=== PATIENT | male | born 1960 | race Caucasian/White ===

== ENCOUNTER 2023-11-03 16:49 | Inpatient (IN) | payer BC, SELFPAY ==
[2023-11-03 12:04] VITALS: BP 131/81
[2023-11-03 12:42] LABS: % Basophils 0.3 % (0-2); % Immature Granulocytes 0.9 % (0-0.5); % Lymphocytes 22.2 % (20.5-51.1); % Monocytes 9.3 % (1.7-9.3); % Neutrophils 63.3 % (42.2-75.2); Absolute Eosinophils 0.4 10^3/uL (0-0.7); Absolute Immature Granulocytes 0.1 10^3/uL (0-0.05); Absolute Lymphocytes 2.1 10^3/uL (1.2-3.4); Absolute Monocytes 0.9 10^3/uL (0.1-0.6); Absolute Neutrophils 6.1 10^3/uL (1.4-6.5); Hematocrit 35.2 % (39.0-52.0); Hemoglobin 11.9 g/dL (13.0-18.0); Mean Corp Hgb Conc. 33.8 g/dL (33.0-37.0); Mean Corpuscular Hgb 28.4 pg (27.0-31.0); Mean Platelet Volume 9.3 fL (7.4-10.4); Nucleated Red Blood Cells % 0 % (-); Platelet Count 404 10^3/uL (130-400); Red Blood Cell Count 4.19 10^6/uL (4.70-6.10); Red Cell Dist. Width 13.2 % (11.5-14.5); White Blood Cell Count 9.6 10^3/uL (4.8-10.8)
[2023-11-03 12:49] LABS: ALT (SGPT) 41 U/L (0-50); AST (SGOT) 35 U/L (17-59); Albumin 3.4 g/dl (3.5-5.0); Alkaline Phosphatase 135 U/L (38-126); Blood Urea Nitrogen 14 mg/dl (9-20); Calcium 8.8 mg/dl (8.4-10.2); Carbon Dioxide 27 mmol/L (22-30); Chloride 98 mmol/L (98-107); Glucose 260 mg/dl (70-99); Potassium 4.2 mmol/L (3.5-5.1); Sodium 134 mmol/L (135-145); Total Bilirubin 0.5 mg/dl (0.2-1.3); Total Protein 6.7 g/dl (6.3-8.2); eGFR > 60.00
--- NOTE | 2023-11-03 14:04 | ED.SKININJ ---
HPI-Injury
General
Chief Complaint: Skin Problem
Source: patient
Exam Limitations: none
Time Seen by Provider: 11/03/23 13:29
Travel History
Have you had any contact with someone who has COVID-19?: No
Do you have any symptoms of coronavirus? Fever > 100 degrees, chills, cough, shortness of breath, sore throat, loss of taste or smell, muscle aches, or headache?: No
History of Present Illness-Injury
Initial Injury comments:
63-year-old male ylo-cgekcho-rxpxjxtzw diabetic presents with worsening wound and potential infection to the right foot. It started as a potential blister and is since opened. He now notes a foul odor with redness spreading into his ellsworth. He
denies measurable fever. He has been taking cinnamon tablets to help lower his blood sugar. He does not take any other medications.
Phy Exam
Physical Exam
Physical Exam:
General: Well-appearing male no acute respiratory distress
HEENT: Normocephalic atraumatic
Heart: Regular rate and rhythm no murmurs
Lungs: CTA bilaterally
Skin: 4 cm diameter ulcer dorsal lateral aspect of right foot proximal to the MTP joints. This is surrounded by erythema. There is necrotic tissue. A wound culture probe goes in about 1.5 to 2 cm. This is foul in odor. There is a ulcer noted on
the plantar surface of laterally that measures about 3 cm in diameter. Erythema spreads to the anterior ellsworth.
Course
Orders/Labs/Results
Orders:
Orders
11/03/23 12:13
Complete Blood Count/With Diff Urgent
Comprehensive Metabolic Panel Urgent
11/03/23 13:40
CR Foot - Right Min 3 Views Urgent
Comment:
Reason For Exam: infection
11/03/23 13:45
Blood Culture Q30M
NAYELI Source: Blood/Venous
Specimen Description:
Wound Culture [Wound/Abscess/Other Culture] Urgent
NAYELI Source: Foot
Specimen Description: Right
Date Specimen was Collected: 11/03/23
Time Specimen was Collected: 14:30
11/03/23 14:15
Blood Culture Q30M
NAYELI Source: Blood/Venous
Specimen Description:
11/03/23 14:36
Lactic Acid Q4H
Comment: CANCEL 2nd LACTIC ACID IF 1st LACTIC ACID IS LESS THAN 2
11/03/23 14:52
Vancomycin [Vancocin] 1,500 mg 0.9% Sodium Chloride [Nss] 20 ml 0.9% Sodium Chloride 250 ml [Nss] 250 ml IV NOW
11/03/23 17:45
Lactic Acid Q4H
Comment: CANCEL 2nd LACTIC ACID IF 1st LACTIC ACID IS LESS THAN 2
Abnormal Lab Results
11/03/23
12:13
RBC 4.19 L 10^6/uL
(4.70-6.10)
Hgb 11.9 L g/dL
(13.0-18.0)
Hct 35.2 L %
(39.0-52.0)
Plt Count 404 H 10^3/uL
(130-400)
Abs Immat Gran (auto) 0.1 H 10^3/uL
(0-0.05)
Absolute Monos (auto) 0.9 H 10^3/uL
(0.1-0.6)
Immature Gran % 0.9 H %
(0-0.5)
Sodium 134 L mmol/L
(135-145)
Creatinine 0.5 L mg/dL
(0.7-1.3)
Glucose 260 H mg/dl
(70-99)
Alkaline Phosphatase 135 H U/L
(38-126)
Albumin 3.4 L g/dl
(3.5-5.0)
11/03/23 12:13
11/03/23 12:13
Vital Signs
Initial and Last Documented VS:
Initial Vital Signs
Temp Pulse Resp BP Pulse Ox
99.4 F 85 18 131/81 98
11/03/23 12:04 11/03/23 12:04 11/03/23 12:04 11/03/23 12:04 11/03/23 12:04
Last Documented Vital Signs
Temp Pulse Resp BP Pulse Ox
99.4 F 85 18 131/81 98
11/03/23 12:04 11/03/23 12:04 11/03/23 12:04 11/03/23 12:04 11/03/23 12:04
MDM/Problems Addressed
Differential Diagnosis Includes:
Diabetic foot ulcers with surrounding cellulitis. Question possible osteomyelitis. Lab work through triage which was reviewed demonstrates a normal white blood cell count. Will have blood cultures pending. Wound culture pending. Will order
x-ray. Start vancomycin. Patient will require admission to hospital
*Critical Care Note
Total Time (30-74mins, 75-104mins- exclusive of procedures): Not Applicable
Update Note
Update Note:
X-ray findings concerning for osteomyelitis of the distal fifth metatarsal. Vancomycin ordered wound cultures are pending. Will admit to hospital for further evaluation.
ED Attending Note
-
Portions of this chart may have been created with voice recognition software.� Occasional wrong word or��sound alike� substitutions may have occurred due to the inherent limitations of voice recognition software.
Discharge Plan
Departure
Patient Disposition: Admit
Date of Disposition: 11/03/23
Time of Disposition: 15:09
Admit to: Telemetry
Presentation/result/management discussed w/ accepting MD/DO: Hospitalist
Discharge Problem:
Cellulitis, Osteomyelitis
Referrals:
NONE,* [Family Provider] -
Interventions
Interventions:
*Risk Screen - Suicide Last Done: 11/03/23 12:05
*General Assessment Last Done: 11/03/23 12:05
*Neglect/Abuse Screening Last Done: 11/03/23 12:05
ED- Fall Risk Assessment Last Done: 11/03/23 14:44
*ED COVID-19 Vaccine History Last Done: 11/03/23 14:45
ED-Skin Assessment Last Done: 11/03/23 14:44
[2023-11-03 14:50] VITALS: BMI 31.4
[2023-11-03] MEDS: VANCOCIN 300 MG IV (15:09)
[2023-11-03] MEDS: VANCOCIN 300 ML IV (15:09)
[2023-11-03 15:12] VITALS: BP 167/96
[2023-11-03 15:15] LABS: Lactic Acid 0.8 mmol/L (0.7-2.0)
--- NOTE | 2023-11-03 16:32 | HPS.HSE ---
Addendum entered and electronically signed by Drea Welch MD 11/03/23 22:20:
Ordered MRI right foot as per podiatry.
Original Note:
Family Physician
-
Family Physician: * NONE
Chief Complaint
-
infected right foot wound
History of Present Illness
63-year-old male with past medical history of diabetes presenting with worsening wound infection of the right foot. It started as a blister a few days ago and has since opened up with now foul odor and redness spreading onto his ellsworth. He denies
any fevers or chills. He has been taking cinnamon tablets to help lower his blood sugar. He denies any history of vascular problems
He does drink alcohol on the weekends. He smokes less than a half a pack of cigarettes a day. He does use marijuana sometimes.
Medical History
Past Medical History
Past Medical History: Reports Other (diabetes)
Past Surgical History: Reports None
Social History
Tobacco: Smoker
Alcohol: Occasional
Drug: Marijuana
Family History
Family History: Not pertinent
Allergies / Home Medications
Allergies reflects when Allergies were last updated in [facility].
Home Medications with original date entered in [facility]
Allergy/Medication List:
Allergies
Allergy/AdvReac Type Severity Reaction Status Date / Time
No Known Allergies Allergy Unverified 11/03/23 12:05
Home Medications
Clear Eyes 2 drp BOTH EYES BIDPRN PRN dry eyes 11/03/23
Joint Supplement 1 tab PO HS 11/03/23
Megared Supplement 1 cap PO HS 11/03/23
aspirin 500 mg tablet 1,000 mg PO HSPRN PRN severe pain 11/03/23
aspirin 500 mg tablet 500 mg PO HS 11/03/23
zbwkdbo-oxtgouwap-kxxd 3 tab PO HS 11/03/23
therapeutic multivitamin 1 tab PO HS 11/03/23
zinc 1 tab PO HS 11/03/23
Review of Systems
-
History Source: Patient
A 12 point ROS was completed and negative except as noted: Yes
Constitutional: Reports No Symptoms
EENT: Reports No Symptoms
Respiratory: Reports No Symptoms
Cardiac: Reports No Symptoms
Abdomen/GI: Reports No Symptoms
: Reports No Symptoms
Musculoskeletal: Reports No Symptoms
Skin: Reports See HPI
Neurological: Reports No Symptoms
Endocrine: Reports No Symptoms
Hematologic/Lymphatic: Reports No Symptoms
Psych: Reports No Symptoms
Physical Exam
Vital Signs
Vital Signs
Temp Pulse Resp BP Pulse Ox
99.4 F 74 16 167/96 98
11/03/23 12:04 11/03/23 15:12 11/03/23 15:12 11/03/23 15:12 11/03/23 15:12
Physical Exam
General: Well Developed, Well Nourished and No Apparent Distress
HEENT: NormoCephalic, Moist mucous membranes and Atraumatic
Respiratory: Clear
Cardiac: S1/S2 and Regular Rhythm; No Murmur or Rub
GI: Soft, Non Tender, Non Distended and Normal Bowel Sounds; No Organomegaly
Rectal: Deferred by Provider
Musculoskeletal: No Clubbing, No Cyanosis and No Edema
Skin: Other (right foot wound with surrounding erythema ); No Rash
Neuro: Nonfocal/grossly intact
Laboratory Results
-
11/03/23 12:13
11/03/23 12:13
Laboratory Results
Lactic Acid 0.8 mmol/L (0.7-2.0) 11/03/23 14:36
Total Bilirubin 0.5 mg/dl (0.2-1.3) 11/03/23 12:13
AST 35 U/L (17-59) 11/03/23 12:13
ALT 41 U/L (0-50) 11/03/23 12:13
Alkaline Phosphatase 135 U/L (38-126) H 11/03/23 12:13
Data Reviewed
-
Lab Data: Labs Reviewed by me
Old Records: Reviewed
Impression/Plan
-
IMPRESSION:
PLAN:
# Diabetic foot infection with ulceration over the lateral/plantar aspect of head of fifth metatarsal with underlying osteomyelitis
-Check blood cultures
-Check wound culture
-Vancomycin/Zosyn
-Podiatry consulted
-Infectious disease consult
-Check arterial US/ JORGITO
# Likely untreated diabetes
-Check A1c
-Insulin sliding scale
Diabetic neuropathy
Presumably chronic anemia
-Hemoglobin 11.9, no baseline
Active smoker
-Nicotine patch started
Marijuana use
Full code
DVT prophylaxis�heparin
Diabetic diet
[2023-11-03 17:35] VITALS: BP 168/90
--- NOTE | 2023-11-03 19:45 | PHA.VAN.IN ---
Assessment
- Assessment
Renal Function: Unknown baseline
Concomitant Antimicrobials: ZOSYN
- Previous Dosing Experience
Previous Regimen: NONE
AUC Dosing Plan
- Empiric Dosing
Initial / Loading Dose: 2GM
Maintenance Regimen: 1250MG IV Q12H
Estimated AUC (mcg*h/mL): 498
Estimated Peak (mcg*h/mL): 31.4
Estimated Trough (mcg/ml): 12.6
Estimated Half Life (H): 7.9
Pharmacokinetics Vancomycin I
- -
Patient Age: 63
Patient Sex: Male
Vancomycin Day #: 1
Indication: Bone And Joint (OM; DIABETIC FOOT INFECTION)
Requesting Provider: EMILI
Height / Weight:
Height 5 ft 11 in
Actual Weight 102.058 kg
Pertinent Past Medical History: DM, UNTREATED
- Vital Signs / Lab Results
Temp Pulse Resp BP Pulse Ox
99.4 F 76 16 168/90 97
11/03/23 12:04 11/03/23 17:35 11/03/23 17:35 11/03/23 17:35 11/03/23 17:35
Lab Results - Hematology
11/03/23
12:13
WBC 9.6
Lab Results - Chemistry
11/03/23
12:13
BUN 14
Creatinine 0.5 L
Albumin 3.4 L
11/03/23 11/03/23
14:36 17:45
Lactic Acid 0.8 Cancelled
Microbiology Results
11/03/23 14:36 Gram Stain - Preliminary
Foot - Right
[2023-11-03 19:47] VITALS: BP 166/83
[2023-11-03 19:51] VITALS: BMI 24.5
[2023-11-03] MEDS: HEPARIN 5000 UNITS SC (19:55)
--- NOTE | 2023-11-03 20:00 | PTCARENOTE ---
Pt arrived from ED via stretcher and ambulated to bed. Pt is AAOx3, VSS, complaining 3/10 R foot pain w/ foul odor purulent drainage. RN given Tylenol and wound care. Pt is oriented to room resting comfortably w/ call arzola within reach.
[2023-11-03] MEDS: VANCOCIN HCL 500 MG 100 IV (20:04)
[2023-11-03] MEDS: TYLENOL 650 MG PO (20:15)
[2023-11-03 21:06] LABS: Glucose - Point of Care 204 mg/dl (70-99)
[2023-11-03] MEDS: ZOSYN 50 IV (21:10)
[2023-11-03] MEDS: THERAGRAN 1 TABLET PO (21:49)
[2023-11-03 23:08] VITALS: BP 141/71
[2023-11-04] MEDS: ZOSYN 50 IV ×4 (02:13→20:59)
[2023-11-04 06:22] LABS: % Basophils 0.3 % (0-2); % Immature Granulocytes 0.8 % (0-0.5); % Lymphocytes 20.5 % (20.5-51.1); % Monocytes 9.1 % (1.7-9.3); % Neutrophils 65.3 % (42.2-75.2); Absolute Eosinophils 0.4 10^3/uL (0-0.7); Absolute Immature Granulocytes 0.1 10^3/uL (0-0.05); Absolute Lymphocytes 1.9 10^3/uL (1.2-3.4); Absolute Monocytes 0.9 10^3/uL (0.1-0.6); Absolute Neutrophils 6.2 10^3/uL (1.4-6.5); Hemoglobin 11.3 g/dL (13.0-18.0); Mean Corp Hgb Conc. 34.2 g/dL (33.0-37.0); Mean Corpuscular Hgb 28.3 pg (27.0-31.0); Mean Corpuscular Volume 82.7 fL (80.0-94.0); Nucleated Red Blood Cells % 0 % (-); Platelet Count 380 10^3/uL (130-400); Red Blood Cell Count 3.99 10^6/uL (4.70-6.10); Red Cell Dist. Width 13.3 % (11.5-14.5); White Blood Cell Count 9.5 10^3/uL (4.8-10.8)
[2023-11-04] MEDS: VANCOCIN 275 MG IV ×2 (06:32→18:05)
[2023-11-04 06:35] LABS: ALT (SGPT) 35 U/L (0-50); AST (SGOT) 25 U/L (17-59); Alkaline Phosphatase 115 U/L (38-126); Blood Urea Nitrogen 12 mg/dl (9-20); Calcium 8.5 mg/dl (8.4-10.2); Carbon Dioxide 27 mmol/L (22-30); Chloride 98 mmol/L (98-107); Estimated Creatinine Clearance > 125 ml/min; Glucose 273 mg/dl (70-99); Potassium 4.2 mmol/L (3.5-5.1); Sodium 132 mmol/L (135-145); Total Bilirubin 0.5 mg/dl (0.2-1.3); Total Protein 6.2 g/dl (6.3-8.2); eGFR > 60.00
[2023-11-04 07:03] LABS: Glucose - Point of Care 209 mg/dl (70-99)
[2023-11-04 07:32] VITALS: BP 169/86
[2023-11-04] MEDS: NOVOLOG FLEXPEN-LOW RESISTANCE 2 UNITS SC ×3 (08:05→18:22)
[2023-11-04] MEDS: HEPARIN 5000 UNITS SC ×2 (08:06→20:19)
[2023-11-04] MEDS: TYLENOL 650 MG PO (08:10)
--- NOTE | 2023-11-04 08:16 | PHA.VAN.FU ---
Vancomycin Assessment / Plan
- Assessment
Renal Function: Stable
WBC's are: WNL
In the past 24 hrs, patient has been: Afebrile
Concomitant Antimicrobials: piperacillin/tazobactam
- Dosing Plan
Continue: Vanc 1250mg Q12H
- Monitoring Plan
No level(s) ordered at this time: consider levels in next few days
- Follow Up
Pharmacy will continue to follow.
Vancomycin Follow UP
- -
Patient Age: 63
Patient Sex: Male
Vancomycin Day #: 2
Indication: Bone And Joint
Requesting Provider: Dr. Welch
Pertinent Antimicrobial Allergies:
NKDA
Height / Weight:
Height 5 ft 11 in
Actual Weight 79.634 kg
Pertinent Past Medical History: DM
- Vital Signs / Lab Results
Temp Pulse Resp BP Pulse Ox
98.6 F 69 18 141/71 95
11/03/23 23:08 11/03/23 23:08 11/03/23 23:08 11/03/23 23:08 11/03/23 23:08
Lab Results - Hematology
11/03/23 11/04/23
12:13 05:23
WBC 9.6 9.5
Lab Results - Chemistry
11/03/23 11/04/23
12:13 05:23
BUN 14 12
Creatinine 0.5 L 0.5 L
Estimated Creat Clear > 125
Albumin 3.4 L 3.0 L
11/03/23 11/03/23
14:36 17:45
Lactic Acid 0.8 Cancelled
Microbiology Results
11/03/23 14:36 Gram Stain - Preliminary
Foot - Right
--- NOTE | 2023-11-04 08:46 | WOUNDNOTE ---
L PLANTAR 1ST MTH
--- NOTE | 2023-11-04 08:46 | WOUNDNOTE ---
R PLANTAR 5TH MTH
--- NOTE | 2023-11-04 08:48 | WOUNDNOTE ---
R FOREFOOT (ANTERIOR 5TH METATARSAL)
--- NOTE | 2023-11-04 08:48 | WOUNDNOTE ---
L 2ND TOE (MEDIAL)
--- NOTE | 2023-11-04 08:49 | WOUNDNOTE ---
L 2ND TOE (MEDIAL)
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
[2023-11-04 13:52] LABS: Glucose - Point of Care 233 mg/dl (70-99)
--- NOTE | 2023-11-04 13:54 | W.PN.HOSP.TC ---
Today's Communication/Plan
-
abx
mri foot, jorgito
f/u cultures
glucose control
Assessment / Plan
Assessment / Plan
Physical Exam
General: Well Developed, Well Nourished and No Apparent Distress
HEENT: NormoCephalic, Moist mucous membranes and Atraumatic
Respiratory: Clear
Cardiac: S1/S2 and Regular Rhythm; No Murmur or Rub
GI: Soft, Non Tender, Non Distended and Normal Bowel Sounds; No Organomegaly
Rectal: Deferred by Provider
Musculoskeletal: No Clubbing, No Cyanosis and No Edema
Skin: Other (right foot wound with surrounding erythema ) - both feet wrapped with shantanu bandages; No Rash
Neuro: Nonfocal/grossly intact
PLAN:
# Diabetic foot infection with ulceration over the lateral/plantar aspect of head of fifth metatarsal with underlying osteomyelitis
-Check blood cultures
-Check wound culture
-Vancomycin/Zosyn
-Podiatry consulted
-Infectious disease consult
-Check arterial US/ JORGITO
-MRI foot pending
# Likely untreated diabetes
-Check A1c - 10.0
-Insulin sliding scale
-DM educator consulted
Diabetic neuropathy
Presumably chronic anemia
-Hemoglobin 11.9, no baseline
Active smoker
-Nicotine patch started
Hyponatremia
-mild
-ctm
Marijuana use
Full code
DVT prophylaxis�heparin
Diabetic diet
Anticipated Discharge: > 48 hours
Subjective/Interval History
-
Date of Service: November 04, 2023
No acute events
Objective Data
-
Labs:
Laboratory Results
11/04/23
05:23
WBC 9.5
Hgb 11.3 L
Hct 33.0 L
Plt Count 380
Sodium 132 L
Potassium 4.2
Chloride 98
Carbon Dioxide 27
BUN 12
Creatinine 0.5 L
Glucose 273 H
Calcium 8.5
Total Bilirubin 0.5
AST 25
ALT 35
Alkaline Phosphatase 115
Vital Signs:
Vital Signs
Temp Pulse Resp BP Pulse Ox
98.6 F 68 16 169/86 97
11/04/23 07:32 11/04/23 07:32 11/04/23 07:32 11/04/23 07:32 11/04/23 08:00
I&O
11/03/23 11/04/23 11/05/23
06:59 06:59 06:59
Intake Total 240 / 240
Balance 240 / 240
Review of Systems
-
History Source: Patient
All other systems: Not reviewed unless documented
Data Reviewed
-
Diagnostic Radiology: Image personally visualized and interpreted and Report Reviewed by me
Ultrasound: Image personally visualized and interpreted and Report Reviewed by me
MRI: Image personally visualized and interpreted and Report Reviewed by me
Labs: Labs Reviewed by me
--- NOTE | 2023-11-04 13:59 | CON.ID ---
Consultation
-
Date/Time Consultation Requested: 11/03/23 19:21
Date/Time Consultation Performed: 11/04/23 14:00
Requesting Provider: Dr Welch
Performing Provider: Dr Clement
Reason for Consultation: infected right foot wound
Chief Complaint / Past History
Chief Complaint
infected right foot wound
History of Present Illness
Mr Virk is a 63 year old male with history of Dm2 (a1c 10) who presented here for a wound infection of the right foot. It began several days ago as a blister, then opened and began draining foul odor and redness began to spread up to the ellsworth.
He has wounds associated with callous on the L medial and lateral plantar MTP region as well. He is an active smoker, not taking diabetic medications. No known vascular problems.
Since arrival here he has been afebrile, hypertensive, wbc 9.5, hgb 11.3, plt initially 404 now 380, there is a L shift, eos are present, cr 0.5, a1c 10, lactic acid 0.8, MRI Rt lower extremity: probable osteomyelitis of the 5th metatarsal and
proximal 5th digit, suspected abscess. He has been started on vancomycin and zosyn. Wound cultures with GBS thus far, mrsa screen pending, blood cultures x2 no growth to date.
Past History
Additional Past Medical History:
dm2
Past Surgical History: None
Allergy History:
No Known Allergies Allergy (Unverified 11/03/23 12:05)
Medications Reviewed: Yes
Social History
Tobacco: Smoker
Alcohol: Occasional
Drug: Marijuana
Family History
Family History: Not Pertinent
Review of Systems
Review of Systems
General: Negative Fever or Chills
All systems: All other systems were reviewed and were negative
Vital Signs
Temp Pulse Resp BP Pulse Ox
98.6 F 68 16 169/86 97
11/04/23 07:32 11/04/23 07:32 11/04/23 07:32 11/04/23 07:32 11/04/23 08:00
Physical Exam
Physical Exam
Constitutional: No Acute Distress and Chronically Ill
Cardiovascular: Regular Rate and S1/S2; Negative Murmur or Rub
Pulmonary: Clear and Symmetric; Negative Wheezes, Rales or Rhonchi
Gastrointestinal: Soft, Non Tender, Non Distended and Normal Bowel Sounds
Extremities: Other (R foot: dorsal 4/5th digits with necrotic tissue probes to tendon, odor, surrounding erythema; L foot callouses with bleeding/wound without erythema, warmth tenderness or drainage)
Skin: Warm and Dry; Negative Rash or Jaundice
Neurological: Awake
Lab / Diagnostic Study Results
11/04/23 05:23
11/04/23 05:23
Abs Immat Gran (auto) 0.1 10^3/uL (0-0.05) H 11/04/23 05:23
Absolute Neuts (auto) 6.2 10^3/uL (1.4-6.5) 11/04/23 05:23
Absolute Lymphs (auto) 1.9 10^3/uL (1.2-3.4) 11/04/23 05:23
Absolute Monos (auto) 0.9 10^3/uL (0.1-0.6) H 11/04/23 05:23
Absolute Basos (auto) 0.0 10^3/uL (0-0.2) 11/04/23 05:23
Immature Gran % 0.8 % (0-0.5) H 11/04/23 05:23
Neutrophils % 65.3 % (42.2-75.2) 11/04/23 05:23
Lymphocytes % 20.5 % (20.5-51.1) 11/04/23 05:23
Monocytes % 9.1 % (1.7-9.3) 11/04/23 05:23
Eosinophils % 4.0 % (0-6) 11/04/23 05:23
Basophils % 0.3 % (0-2) 11/04/23 05:23
Lactic Acid Cancelled 11/03/23 17:45
Microbiology Results
Micro:
11/03/23 14:36 Wound Culture - Preliminary
Foot - Right Streptococcus agalactiae
Gram Stain - Preliminary
11/04/23 03:04 MRSA Screen - Pending
Nose
11/03/23 14:36 Blood Culture - Pending
Blood/Venous
11/03/23 14:36 Blood Culture - Pending
Blood/Venous
Assessment / Plan
Diabetic Foot Infection of R foot
Diabetic Foot Wounds of the L foot
Osteomyelitis of R 5th MTP 2/2 dm foot infection
uncontrolled dm2
active smoker
- blood cultures x2 in progress
- wound culture in progress
- mrsa screen pending
- continue vancomycin and zosyn
- appreciate podiatry input
- emphasized need to get DM2 under control and to stop using nicotine at a minimum to prevent progression, relapse, new infection
- patient shares he is uninsured which has impacted his ability to seek health care; have encouraged him to plan to follow up with the [facility] clinic
--- NOTE | 2023-11-04 14:00 | PTCARENOTE ---
Pt instructed on HWB only, Pt refusing to use urinal at the bedside, BSC or Wheelchair to go into the bathroom. Pt using rolling walker with heel touch as able. Will continue to encourage Heel weight bearing, plan of care ongoing.
[2023-11-04] MEDS: ROXICODONE 5 MG PO ×2 (14:05→19:29)
[2023-11-04 15:09] VITALS: BP 152/80
--- NOTE | 2023-11-04 16:31 | CM ---
Reviewed the chart notes and spoke with the patient at the bedside. The patient resides with his sister in a first floor apartment. There are no steps to enter. The patient reports no DME/VN/SNF in the past. The patient confirmed his pharmacy of
choice is the [facility] [address]. CM continues to be available to patient/family and is monitoring medical plan for needs at discharge.
Plan: Discharge plans will depend on the patient's progress.
[2023-11-04 18:10] LABS: Glucose - Point of Care 207 mg/dl (70-99)
[2023-11-04 21:15] LABS: Glucose - Point of Care 211 mg/dl (70-99)
--- NOTE | 2023-11-04 21:25 | W.CS.POD ---
Consult Summary - Podiatry
-
This 63 year old male was admitted to on 11/03/23 with RLE cellulitis and infected diabetic wounds of the right foot. He reports developing a blister on the right foot 2 weeks ago while working at [employer]. He relates the blister broke open with
drainage noted. He then noticed the foul odor and redness spreading up his right leg. He reports having numbness in his feet, and admits to not taking his medications for diabetes. Today, he denies any fever, chills or sweats.
WBC: 9.5 Hgb/Hct: 11.3/33.0
Blood Cultures X 2: No growth 24h
Wound Culture: Preliminary: Strep Agalactiae
11/03/23 Right foot XRAY: There is soft tissue deformity/ulceration over the lateral and plantar aspects of the head of the fifth metatarsal with underlying destruction of the head of the fifth metatarsal suggesting osteomyelitis.
11/04/23 MRI of the right foot: �
Bony destruction involving the distal aspect of the fifth metatarsal bone and the proximal margin of the proximal phalanx of the right fifth toe, findings compatible with osteomyelitis.
There is also abnormal enhancing intermediate T1-weighted signal extending to the level of the proximal fifth metatarsal shaft, suspicious for osteomyelitis.
There is abnormal signal and enhancement involving the marrow of the proximal, middle, and distal phalanges of the right fifth toe, suspicious for osteoarthritis.
There is nonenhancing intermediate T1-weighted signal within the soft tissues dorsal to the fifth and fourth metatarsal bones and also surrounding the right fifth toe. This would suggest a devitalized collection within the soft tissues, and could
represent infected collection. This appears to communicate with the open dorsal wound.
Arterial ultrasound of LE's: Right JORGITO:1.12, TBI:0.80 Left JORGITO:1.17, TBI:1.16 Full report PND.
�
Assessment:
Diabetic foot infection with necrotic doral and plantar forefoot wounds, right foot.
Chronic diabetic wounds, left foot, stable.
Type 2 Diabetes, uncontrolled.
Diabetic peripheral neuropathy
Active Smoker
Anemia
Plan:
Surgical debridement of necrotic tissue and osteomyelitis of the right foot necessary, however achieving viable soft tissue coverage with isolated fifth ray resection may be difficult.
Recommend Vascular Consult for input on healing potential for intended amputation.
ID note appreciated. IV Vanco/Zosyn.
[2023-11-04] MEDS: THERAGRAN 1 TABLET PO (21:39)
[2023-11-04 23:28] VITALS: BP 156/90
[2023-11-05] MEDS: ZOSYN 50 IV ×4 (01:49→21:03)
[2023-11-05] MEDS: ROXICODONE 5 MG PO ×4 (01:53→21:07)
[2023-11-05] MEDS: VANCOCIN 275 MG IV (05:00)
[2023-11-05 05:51] LABS: Hematocrit 35.2 % (39.0-52.0); Hemoglobin 12.2 g/dL (13.0-18.0); Mean Corp Hgb Conc. 34.7 g/dL (33.0-37.0); Mean Corpuscular Hgb 28.8 pg (27.0-31.0); Mean Platelet Volume 9.2 fL (7.4-10.4); Platelet Count 399 10^3/uL (130-400); Red Blood Cell Count 4.24 10^6/uL (4.70-6.10); Red Cell Dist. Width 13.3 % (11.5-14.5); White Blood Cell Count 11.2 10^3/uL (4.8-10.8)
[2023-11-05 06:11] LABS: Blood Urea Nitrogen 10 mg/dl (9-20); Calcium 8.7 mg/dl (8.4-10.2); Carbon Dioxide 26 mmol/L (22-30); Chloride 98 mmol/L (98-107); Estimated Creatinine Clearance > 125 ml/min; Glucose 214 mg/dl (70-99); Potassium 4.4 mmol/L (3.5-5.1); Sodium 134 mmol/L (135-145); eGFR > 60.00
--- NOTE | 2023-11-05 07:22 | PN.DE.MGMTRT ---
Insulin Management
- -
11/05/2023: Diabetes Management Consult
63 year old male admitted for Diabetic foot infection with ulceration over the lateral/plantar aspect of head of 5th metatarsal with underlying osteomyelitis.
PMH includes: Anemia, Diabetic Peripheral Neuropathy, ETOH use, Active smoker, 1/2PPD, marijuana use and T2DM, Was taking cinnamon caps for glucose management at home. On admission, A1C was 10.0%, Cr 0.5, eGFR>60. Pt seen this morning, A/O x3,
sitting up in bed, offers no complaints.
States he's had diabetes for many years, was taking insulin and oral medications but stopped taking all diabetes medications due to cost and loss of insurance. He is unable to provide details of insulin brand and names of oral meds that he was
taking. States he has a glucose meter at home (thinks it's [employer] Next) but has not been monitoring his blood sugars or seen a doctor in over a year.
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 Encouraged
pt to speak to his primary team about post d/c plan of care.
Glucose has been elevated, premeal 173 to 233, current diabetes regimen includes low corrective insulin only
Will start basal/bolus insulin- NovoLog 6 units AC, 1st dose now. Lantus 12 units, 1st dose @ HS, Metformin 500mg BID, 1st dose now.
Cont low objective insulin with meals. Will cont to follow and provide new glucose meter.
Diabetes History
- -
Type of Diabetes: 2 requiring insulin
Pre-Admission Diabetes Regimen
11/05/23
04:55
Creatinine 0.5 L
Lab Results
Hemoglobin A1c 10.0 % (4.0-5.6) H 11/04/23 05:23
Insulin Pump Settings
IP Diabetes Regimen
11/04/23 11/04/23 11/04/23
13:50 18:09 21:14
Glucose
POC Glucose 233 H 207 H 211 H
11/05/23
04:55
Glucose 214 H
POC Glucose
Meal type: Dinner
Meal type: Lunch
Meal type: Breakfast
Amount consumed: 100%
Amount consumed: 100%
Amount consumed: 100%
Patient Education
[2023-11-05 07:30] LABS: Glucose - Point of Care 173 mg/dl (70-99)
[2023-11-05] MEDS: NOVOLOG FLEXPEN-LOW RESISTANCE 1 UNITS SC ×2 (07:32→11:56)
[2023-11-05] MEDS: HEPARIN 5000 UNITS SC ×2 (07:32→21:03)
[2023-11-05 07:35] VITALS: BP 160/81
[2023-11-05] MEDS: GLUCOPHAGE 500 MG PO ×2 (07:51→17:58)
[2023-11-05] MEDS: NOVOLOG FLEXPEN 6 UNITS SC ×3 (07:52→17:59)
--- NOTE | 2023-11-05 09:40 | PN.CDI ---
CDI
- -
CDI:
Physician Documentation Request
Admit Date: 11/03/23 16:49
Dear Doctor Munira,
Patient admitted with osteomyelitis.
ED Physician Documentation: 'It started as a potential blister and is since opened. He now notes a foul odor with redness spreading into his [place].'
11/03 Hospitalist PN: 'Diabetic foot infection with ulceration over the lateral/plantar aspect of head of fifth metatarsal with underlying osteomyelitis'
Clarify which of the following accurately represents the acuity of the osteomyelitis. Possible options might include:
Acute
Chronic
Other
Use of terms such as suspected, likely, concern for, or probable (associated with a specific diagnosis that is being evaluated, monitored, or treated as if it exists) are acceptable and can be coded in the inpatient setting, when documented at the
time of discharge.
Thank you,
Candie Nicolas RN, BSN
CDI Specialist
Available via [place] text
Please use your independent medical judgment in providing your response.
--- NOTE | 2023-11-05 11:45 | PTCARENOTE ---
Diabetes Education- Eduard with many year history T2DM, A1C 10%. Has used insulin in the past but stopped due to cost, currently has been using cinnamon pills for management. States he has a glucometer at home but not sure of last time he has used
it. Provided with a [employer] EX glucometer, initially stating he knows how to use it. Through questioning and discussion, it became apparent that he needed instructions. Previously, he would test on fingertip, not wipe first drop of blood away,
did not pump his hand. Fair return demonstraion with result of 157 mg/dl, finishing lunch meal at this time. Discussed the need for insulin to manage his BS, discussed action of both rapid and long acting insulins. He was unable to set the insulin
pen up so instructions given on use with good return demonstration. Preiously, he did not prime or held in place for a count of ten. Education booklet with information marked as well as log sheet for organization. Questions answered. Education
booklet with phone number and information marked. He states 'this is alot to do'- I agree but reinforce the importance to help prevent complications and help with healing of wounds. Take home pen needles at bedside for him to practice self
injecting. Updates to [facility]>.
[2023-11-05 11:55] LABS: Glucose - Point of Care 157 mg/dl (70-99)
--- NOTE | 2023-11-05 14:06 | W.PN.HOSP.TC ---
Today's Communication/Plan
-
initiate diabetic and hypertension management
cont abx
follow up cultures
await possible surgical intervention
Assessment / Plan
Assessment / Plan
Physical Exam
General: Well Developed, Well Nourished and No Apparent Distress
HEENT: NormoCephalic, Moist mucous membranes and Atraumatic
Respiratory: Clear
Cardiac: S1/S2 and Regular Rhythm; No Murmur or Rub
GI: Soft, Non Tender, Non Distended and Normal Bowel Sounds; No Organomegaly
Rectal: Deferred by Provider
Musculoskeletal: No Clubbing, No Cyanosis and No Edema
Skin: Other (right foot wound with surrounding erythema ) - both feet wrapped with shantanu bandages; No Rash
Neuro: Nonfocal/grossly intact
PLAN:
# Diabetic foot infection with ulceration over the lateral/plantar aspect of head of fifth metatarsal with underlying osteomyelitis
-blood cultures: NGTD
-wound culture, strep agalactiae
-Vancomycin/Zosyn
-Podiatry consulted - await surgical intervention
-Infectious disease consult
-arterial US/ JORGITO: WNL b/l
# Likely untreated diabetes
#Diabetic neuropathy
-Check A1c - 10.0
-Insulin sliding scale
-DM educator consulted
-Lantus 12, NovoLog 6, metformin 500mg
Presumably chronic anemia
-Hemoglobin 11.9, no baseline
Active smoker
-Nicotine patch started
-educated on cessation
Hyponatremia
-mild
-ctm
#Hypertension
-start enalapril in setting of htn and DM
Marijuana use
Full code
DVT prophylaxis�heparin
Diabetic diet
Total time spent on today's encounter was 50 minutes which included time spent in counseling the patient/family regarding diagnosis and treatment plan as listed above, goals of care, and symptom management. Case was discussed with nursing staff,
specialists, and care coordinators/case management. All labs and imaging personally reviewed by me. Remainder the time spent in detailed review of previous records, lab data, imaging, and other medical provider documentation.
Anticipated Discharge: > 48 hours
Subjective/Interval History
-
Date of Service: November 05, 2023
No acute events
Objective Data
-
Labs:
Laboratory Results
11/05/23
04:55
WBC 11.2 H
Hgb 12.2 L
Hct 35.2 L
Plt Count 399
Sodium 134 L
Potassium 4.4
Chloride 98
Carbon Dioxide 26
BUN 10
Creatinine 0.5 L
Glucose 214 H
Calcium 8.7
Vital Signs:
Vital Signs
Temp Pulse Resp BP Pulse Ox
98.5 F 67 18 160/81 96
11/05/23 07:35 11/05/23 07:35 11/05/23 07:35 11/05/23 07:35 11/05/23 08:00
I&O
11/04/23 11/05/23 11/06/23
06:59 06:59 06:59
Intake Total 240 / 240 340 / 340
Balance 240 / 240 340 / 340
Review of Systems
-
History Source: Patient
All other systems: Not reviewed unless documented
Data Reviewed
-
Diagnostic Radiology: Image personally visualized and interpreted and Report Reviewed by me
Ultrasound: Image personally visualized and interpreted and Report Reviewed by me
MRI: Image personally visualized and interpreted and Report Reviewed by me
Labs: Labs Reviewed by me
[2023-11-05] MEDS: VASOTEC 5 MG PO (14:38)
[2023-11-05 15:44] VITALS: BP 152/77
[2023-11-05 16:36] LABS: Glucose - Point of Care 119 mg/dl (70-99)
--- NOTE | 2023-11-05 16:43 | PHA.VAN.FU ---
Vancomycin Assessment / Plan
- Assessment
Renal Function: Stable
WBC's are: Trending Up
In the past 24 hrs, patient has been: Afebrile
Concomitant Antimicrobials: piperacillin/tazobactam
- Dosing Plan
Continue: Vanc 1250mg Q12H
- Monitoring Plan
No level(s) ordered at this time: will hold off on levels for now and follow-up plans by ID
- Follow Up
Pharmacy will continue to follow.
Vancomycin Follow UP
- -
Patient Age: 63
Patient Sex: Male
Vancomycin Day #: 3
Indication: [facility]
Requesting Provider: Dr. Welch
Pertinent Antimicrobial Allergies:
NKDA
Height / Weight:
Height 5 ft 11 in
Actual Weight 79.634 kg
Pertinent Past Medical History: DM
- Vital Signs / Lab Results
Temp Pulse Resp BP Pulse Ox
98.1 F 64 16 152/77 95
11/05/23 15:44 11/05/23 15:44 11/05/23 15:44 11/05/23 15:44 11/05/23 15:44
Lab Results - Hematology
11/03/23 11/04/23 11/05/23
12:13 05:23 04:55
WBC 9.6 9.5 11.2 H
Lab Results - Chemistry
11/03/23 11/04/23 11/05/23
12:13 05:23 04:55
BUN 14 12 10
Creatinine 0.5 L 0.5 L 0.5 L
Estimated Creat Clear > 125 > 125
Albumin 3.4 L 3.0 L
11/03/23 11/03/23
14:36 17:45
Lactic Acid 0.8 Cancelled
Microbiology Results
11/03/23 14:36 Blood Culture - Preliminary
Blood/Venous No Growth in 48 hours- Final report to follow
11/03/23 14:36 Blood Culture - Preliminary
Blood/Venous No Growth in 48 hours- Final report to follow
11/03/23 14:36 Wound Culture - Final
Foot - Right Streptococcus agalactiae
Gram Stain - Final
11/04/23 03:04 MRSA Screen - Final
Nose No Methicillin Resistant Staphylococcus aureus isolated.
[2023-11-05] MEDS: NOVOLOG FLEXPEN-LOW RESISTANCE SC (17:00)
--- NOTE | 2023-11-05 17:32 | W.PN.ID1 ---
Date of Service
Date of Service: November 05, 2023
Today's Communication
continue zosyn
follow up cultures
Assessment / Plan
Diabetic Foot Infection of R foot
Diabetic Foot Wounds of the L foot
Osteomyelitis of R 5th MTP 2/2 dm foot infection
uncontrolled dm2
active smoker
- blood cultures x2 in progress
- wound culture in progress - GBS thus far
- mrsa screen negative
- continue zosyn, will stop vancomycin
- appreciate podiatry input
- emphasized need to get DM2 under control and to stop using nicotine at a minimum to prevent progression, relapse, new infection
- patient shares he is uninsured which has impacted his ability to seek health care; have encouraged him to plan to follow up with the [facility]
Chief Complaint
-: Other (diabetic foot infection)
Subjective / Review of Systems
afebrile
bp stable
tolerating current therapies
no new complaints
Vital Signs / Physical Exam
Vital Signs
Vital Signs
Temp Pulse Resp BP Pulse Ox
98.1 F 64 16 152/77 95
11/05/23 15:44 11/05/23 15:44 11/05/23 15:44 11/05/23 15:44 11/05/23 15:44
Physical Exam
Constitutional: No Acute Distress
Cardiovascular: Regular Rate and S1/S2; Negative Murmur or Rub
Pulmonary: Clear and Symmetric; Negative Wheezes or Rales
Gastrointestinal: Soft, Non Tender, Non Distended and Normal Bowel Sounds
Skin: Warm and Dry; Negative Rash or Jaundice
Objective Data
Lab Data
Lab Results
11/05/23 04:55
11/05/23 04:55
Estimated Creat Clear > 125 ml/min 11/05/23 04:55
Lactic Acid Cancelled 11/03/23 17:45
Total Bilirubin 0.5 mg/dl (0.2-1.3) 11/04/23 05:23
AST 25 U/L (17-59) 11/04/23 05:23
ALT 35 U/L (0-50) 11/04/23 05:23
Alkaline Phosphatase 115 U/L (38-126) 11/04/23 05:23
Most recent labs reviewed.
Micro Results:
11/03/23 14:36 Blood Culture - Preliminary
Blood/Venous No Growth in 48 hours- Final report to follow
11/03/23 14:36 Blood Culture - Preliminary
Blood/Venous No Growth in 48 hours- Final report to follow
11/03/23 14:36 Wound Culture - Final
Foot - Right Streptococcus agalactiae
Gram Stain - Final
11/04/23 03:04 MRSA Screen - Final
Nose No Methicillin Resistant Staphylococcus aureus isolated.
--- NOTE | 2023-11-05 18:00 | PTCARENOTE ---
Insulin teaching began with patient was able to self inject with step by step guidance and RN instruction.
[2023-11-05] MEDS: THERAGRAN 1 TABLET PO (21:03)
[2023-11-05 21:08] LABS: Glucose - Point of Care 170 mg/dl (70-99)
[2023-11-05] MEDS: LANTUS 0.0599999999999999978 UNITS SC (22:30)
[2023-11-05 23:40] VITALS: BP 128/72
[2023-11-06] MEDS: ZOSYN 50 IV ×2 (04:19→08:14)
[2023-11-06] MEDS: ROXICODONE 5 MG PO ×4 (04:22→21:24)
[2023-11-06 07:02] LABS: Glucose - Point of Care 263 mg/dl (70-99)
[2023-11-06 07:22] VITALS: BP 126/72
--- NOTE | 2023-11-06 08:09 | PTCARENOTE ---
Patient does not ring arzola for assistance out of bathroom. Patient not wearing skid proof socks. Reinforced fall precautions.
[2023-11-06] MEDS: VASOTEC 5 MG PO (08:14)
[2023-11-06] MEDS: GLUCOPHAGE PO (08:15)
[2023-11-06] MEDS: HEPARIN 5000 UNITS SC ×2 (08:15→21:24)
[2023-11-06] MEDS: NOVOLOG FLEXPEN SC (08:28)
[2023-11-06 08:54] LABS: Hemoglobin 12.1 g/dL (13.0-18.0); Mean Corp Hgb Conc. 33.6 g/dL (33.0-37.0); Mean Corpuscular Hgb 29.2 pg (27.0-31.0); Platelet Count 450 10^3/uL (130-400); Red Blood Cell Count 4.14 10^6/uL (4.70-6.10); Red Cell Dist. Width 13.5 % (11.5-14.5); White Blood Cell Count 12.7 10^3/uL (4.8-10.8)
[2023-11-06 09:35] LABS: Blood Urea Nitrogen 19 mg/dl (9-20); Calcium 8.4 mg/dl (8.4-10.2); Carbon Dioxide 26 mmol/L (22-30); Chloride 97 mmol/L (98-107); Estimated Creatinine Clearance 117 ml/min; Glucose 258 mg/dl (70-99); Potassium 4.4 mmol/L (3.5-5.1); Sodium 134 mmol/L (135-145); eGFR > 60.00
--- NOTE | 2023-11-06 11:10 | PTCARENOTE ---
Patient prepped for OR today. Hibiclens bath given. New gown placed. Underwear removed. Dentures removed. Pneumatic stockings placed. Antibiotics given as ordered. Brief report given to PSYCHOTHERAPIST COUNSELOR.
[2023-11-06 11:25] LABS: Glucose - Point of Care 198 mg/dl (70-99)
--- NOTE | 2023-11-06 12:56 | W.PN.HOSP.TC ---
Today's Communication/Plan
-
change to unasyn
OR today
Assessment / Plan
Assessment / Plan
Physical Exam
General: Well Developed, Well Nourished and No Apparent Distress
HEENT: NormoCephalic, Moist mucous membranes and Atraumatic
Respiratory: Clear
Cardiac: S1/S2 and Regular Rhythm; No Murmur or Rub
GI: Soft, Non Tender, Non Distended and Normal Bowel Sounds; No Organomegaly
Rectal: Deferred by Provider
Musculoskeletal: No Clubbing, No Cyanosis and No Edema
Skin: Other (right foot wound with surrounding erythema ) - both feet wrapped with shantanu bandages; No Rash
Neuro: Nonfocal/grossly intact
PLAN:
# Diabetic foot infection with ulceration over the lateral/plantar aspect of head of fifth metatarsal with underlying osteomyelitis
-blood cultures: NGTD, mrsa neg - stop vanco
-wound culture, strep agalactiae
-Unasyn
-Podiatry consulted - await surgical intervention
-Infectious disease consult
-arterial US/ JORGITO: WNL b/l - no need for vascular to follow inpatient - confirmed by Dr. De Dios
# Likely untreated diabetes
#Diabetic neuropathy
-Check A1c - 10.0
-Insulin sliding scale
-DM educator consulted
-Lantus 12, NovoLog 6, metformin 500mg
Thrombocytosis
Most likely acute phase reactant secondary to acute infection
Continue to monitor with resuscitation
Presumably chronic anemia
-Hemoglobin 11.9, no baseline
Active smoker
-Nicotine patch started
-educated on cessation
Hyponatremia
-mild
-ctm
#Hypertension
-start enalapril in setting of htn and DM
Marijuana use
Full code
DVT prophylaxis�heparin
Diabetic diet
Total time spent on today's encounter was 51 minutes which included time spent in counseling the patient/family regarding diagnosis and treatment plan as listed above, goals of care, and symptom management. Case was discussed with nursing staff,
specialists, and care coordinators/case management. All labs and imaging personally reviewed by me. Remainder the time spent in detailed review of previous records, lab data, imaging, and other medical provider documentation.
Anticipated Discharge: > 48 hours
Subjective/Interval History
-
Date of Service: November 06, 2023
no acute events, OR today
Objective Data
-
Labs:
Laboratory Results
11/06/23 11/06/23
06:01 06:02
WBC 12.7 H
Hgb 12.1 L
Hct 36.0 L
Plt Count 450 H
Sodium 134 L
Potassium 4.4
Chloride 97 L
Carbon Dioxide 26
BUN 19
Creatinine 0.7
Glucose 258 H
Calcium 8.4
Vital Signs:
Vital Signs
Temp Pulse Resp BP Pulse Ox
98.8 F 70 16 126/70 95
11/06/23 07:22 11/06/23 08:14 11/06/23 07:22 11/06/23 08:14 11/06/23 11:12
I&O
11/05/23 11/06/23 11/07/23
06:59 06:59 06:59
Intake Total 340 / 340 1310 / 1310
Balance 340 / 340 1310 / 1310
Review of Systems
-
History Source: Patient
All other systems: Not reviewed unless documented
Data Reviewed
-
Diagnostic Radiology: Image personally visualized and interpreted and Report Reviewed by me
Ultrasound: Image personally visualized and interpreted and Report Reviewed by me
MRI: Image personally visualized and interpreted and Report Reviewed by me
Labs: Labs Reviewed by me
[2023-11-06 13:16] LABS: Glucose - Point of Care 178 mg/dl (70-99)
--- NOTE | 2023-11-06 13:25 | W.PN.ID1 ---
Date of Service
Date of Service: November 06, 2023
Today's Communication
Narrow Zosyn to Unasyn.
Assessment / Plan
Diabetic Foot Infection of R foot
Diabetic Foot Wounds of the L foot
Osteomyelitis of R 5th MTP 2/2 dm foot infection
uncontrolled dm2
active smoker
-JORGITO,TBI normal
- blood cultures x2 neg to ddae
- wound culture in progress - GBS
- mrsa screen negative
- Narrow Zosyn to Unasyn.
- appreciate podiatry input
- emphasized need to get DM2 under control and to stop using nicotine at a minimum to prevent progression, relapse, new infection
- patient shares he is uninsured which has impacted his ability to seek health care; have encouraged him to plan to follow up with the [facility]
Chief Complaint
-: Other (diabetic foot infection)
Subjective / Review of Systems
No pain
Vital Signs / Physical Exam
Vital Signs
Vital Signs
Temp Pulse Resp BP Pulse Ox
98.8 F 70 16 126/70 95
11/06/23 07:22 11/06/23 08:14 11/06/23 07:22 11/06/23 08:14 11/06/23 11:12
Physical Exam
Constitutional: No Acute Distress
Gastrointestinal: Soft, Non Tender and Non Distended
Wound: Other (bilateral foot dressings dry)
Objective Data
Lab Data
Lab Results
11/06/23 06:02
11/06/23 06:01
Estimated Creat Clear 117 ml/min 11/06/23 06:01
Lactic Acid Cancelled 11/03/23 17:45
Total Bilirubin 0.5 mg/dl (0.2-1.3) 11/04/23 05:23
AST 25 U/L (17-59) 11/04/23 05:23
ALT 35 U/L (0-50) 11/04/23 05:23
Alkaline Phosphatase 115 U/L (38-126) 11/04/23 05:23
Most recent labs reviewed.
Micro Results:
11/03/23 14:36 Blood Culture - Preliminary
Blood/Venous No Growth in 48 hours- Final report to follow
11/03/23 14:36 Blood Culture - Preliminary
Blood/Venous No Growth in 48 hours- Final report to follow
11/03/23 14:36 Wound Culture - Final
Foot - Right Streptococcus agalactiae
Gram Stain - Final
11/04/23 03:04 MRSA Screen - Final
Nose No Methicillin Resistant Staphylococcus aureus isolated.
[2023-11-06] MEDS: NOVOLOG FLEXPEN 6 UNITS SC ×2 (13:26→16:30)
--- NOTE | 2023-11-06 14:07 | W.PN.POD ---
Today's Communication
Today's Communication
Anticipate taking patient to OR tomorrow AM
NPO after midnight.
Assessment / Plan
-
Assessment:
Diabetic foot infection with necrotic dorsal and plantar forefoot wounds with acute osteomyelitis, right foot.
Chronic diabetic wounds, left foot, stable.
Type 2 Diabetes, uncontrolled.
Diabetic peripheral neuropathy
Active Smoker
Anemia
Plan:
Surgical debridement of necrotic tissue and osteomyelitis of the right foot necessary.
Vascular communication appreciated regarding distal perfusion.
ID note appreciated. Continue IV Antibiotics.
Original plan to OR today, significantly delayed due to emergency case load.
Anticipate patient to OR first thing tomorrow morning.
NPO after midnight ordered.
Subjective
Chief Complaint
Infected diabetic wounds with acute osteomyelitis, right foot
Subjective
Patient resting comfortably in bed. Denies fever, chills or sweats, with little to discomfort in the feet.
Objective
Temp Pulse Resp BP Pulse Ox
98.8 F 70 16 126/70 95
11/06/23 07:22 11/06/23 08:14 11/06/23 07:22 11/06/23 08:14 11/06/23 11:12
11/06/23 06:02
11/06/23 06:01
Vital Signs and Lab results were reviewed.
WBC: 12.7� Hgb/Hct: 12.1/36.0
Blood Cultures X 2: No growth 48h
Wound Culture: Final: Strep Agalactiae
11/03/23 Right foot XRAY: There is soft tissue deformity/ulceration over the lateral and plantar aspects of the head of the fifth metatarsal with underlying destruction of the head of the fifth metatarsal suggesting osteomyelitis.
11/04/23 MRI of the right foot:� �
Bony destruction involving the distal aspect of the fifth metatarsal bone and the proximal margin of the proximal phalanx of the right fifth toe, findings compatible with osteomyelitis.
There is also abnormal enhancing intermediate T1-weighted signal extending to the level of the proximal fifth metatarsal shaft, suspicious for osteomyelitis.
There is abnormal signal and enhancement involving the marrow of the proximal, middle, and distal phalanges of the right fifth toe, suspicious for osteoarthritis.
There is nonenhancing intermediate T1-weighted signal within the soft tissues dorsal to the fifth and fourth metatarsal bones and also surrounding the right fifth toe. This would suggest a devitalized collection within the soft tissues, and could
represent infected collection. This appears to communicate with the open dorsal wound.
Arterial ultrasound of LE's:� Right JORGITO:1.12, TBI:0.80 Left JORGITO:1.17, TBI:1.16 �ABIs and TBI's within normal limits bilaterally. Arterial duplex examination reveals multiphasic waveforms from the common femoral artery through the popliteal artery
bilaterally with no focal velocity elevations to suggest significant stenosis bilaterally. Multiphasic continuous Doppler waveforms are demonstrated in the dorsalis pedis and posterior tibial arteries bilaterally.
DP,PT pulses palpable, bilaterally
Decreased skin turgor, temp and absent digital hair growth, bilaterally.
Left foot with chronic ulcerations belying callus, Sub-metataral one and four, as well as along the medial second toe PIPJ. These are dry and stable with fibrotic base.
The right foot exhibits a large, full skin and subcutaneous tissue thickness, necrotic, maldodorous wound over the distal aspect of the fifth metatarsal, approximately 3 x 2.5 cm in diameter, with tendon exposure.
There is also a sub-metatarsal five ulceration of the right foot which probes to bone. No active discharge or bleeding noted.
Cellulitis and edema of the RLE has receded now limited to the lateral midfoot and forefoot.
Review of Systems
Review of Systems
Review of Systems: No Fever, No Chills, No Nausea and No Diarrhea
[2023-11-06 15:42] VITALS: BP 126/64
[2023-11-06] MEDS: GLUCOPHAGE 500 MG PO (16:42)
[2023-11-06 17:00] LABS: Glucose - Point of Care 262 mg/dl (70-99)
[2023-11-06] MEDS: NOVOLOG FLEXPEN-LOW RESISTANCE 3 UNITS SC (17:36)
[2023-11-06] MEDS: UNASYN IV ×2 (17:55→23:07)
[2023-11-06] MEDS: LANTUS SC (19:30)
[2023-11-06 21:19] LABS: Glucose - Point of Care 125 mg/dl (70-99)
[2023-11-06] MEDS: LANTUS 0.0599999999999999978 UNITS SC (21:24)
[2023-11-06] MEDS: THERAGRAN 1 TABLET PO (21:24)
[2023-11-06 23:35] VITALS: BP 134/70
[2023-11-07] VITALS (14 sets, daily range): BP systolic 104–165; BP diastolic 69–95
[2023-11-07 06:14] LABS: Glucose - Point of Care 202 mg/dl (70-99)
[2023-11-07] MEDS: UNASYN IV ×4 (06:21→23:22)
[2023-11-07] MEDS: NOVOLOG FLEXPEN-LOW RESISTANCE 2 UNITS SC (06:21)
[2023-11-07] MEDS: NOVOLOG FLEXPEN SC (07:38)
[2023-11-07] MEDS: GLUCOPHAGE PO (07:39)
[2023-11-07] MEDS: VASOTEC 5 MG PO (07:47)
[2023-11-07] MEDS: HEPARIN SC (08:03)
[2023-11-07 08:07] LABS: Hematocrit 40.3 % (39.0-52.0); Hemoglobin 13.3 g/dL (13.0-18.0); Mean Corpuscular Hgb 28.5 pg (27.0-31.0); Mean Corpuscular Volume 86.3 fL (80.0-94.0); Mean Platelet Volume 9.2 fL (7.4-10.4); Platelet Count 545 10^3/uL (130-400); Red Blood Cell Count 4.67 10^6/uL (4.70-6.10); Red Cell Dist. Width 13.9 % (11.5-14.5); White Blood Cell Count 12.9 10^3/uL (4.8-10.8)
--- NOTE | 2023-11-07 08:24 | PTCARENOTE ---
Underwear removed. Patient NPO since last night. Hibiclens performed. Dentures removed. Report given to OR. Patient transported to OR with chart and pneumatic compression stockings.
[2023-11-07 08:54] LABS: Blood Urea Nitrogen 19 mg/dl (9-20); Calcium 8.6 mg/dl (8.4-10.2); Carbon Dioxide 26 mmol/L (22-30); Chloride 99 mmol/L (98-107); Estimated Creatinine Clearance 117 ml/min; Glucose 177 mg/dl (70-99); Potassium 4.3 mmol/L (3.5-5.1); Sodium 133 mmol/L (135-145); eGFR > 60.00
--- NOTE | 2023-11-07 09:26 | W.PN.UPDATE ---
Update Note
Progress Note Update
11/06/23 Addendum:
Discussed with the patient the proposed procedure of debridement of infected and non-viable skin, soft tissue and bone of the right foot. The patient understands the benefits, risks and possible complications of the proposed procedure, as well as
the potential need for additional surgery. Surgical consent was obtained at bedside.
--- NOTE | 2023-11-07 09:30 | W.PN.UPDATE ---
Update Note
Progress Note Update
Procedure: Partial/proximal fifth ray amputation, right foot in the treatment of acute osteomyelitis. Patient tolerated procedure and anesthesia well.
Specimen sent: Path: infected bone; Clean bone margin proximally. Micro: infected bone.
Orders:
PO XRAYS, right foot
Resume diet
NWB right foot for 24 hours.
Wedge surgical shoe to bedside.
[2023-11-07 09:31] LABS: Glucose - Point of Care 143 mg/dl (70-99)
[2023-11-07 11:23] LABS: Glucose - Point of Care 128 mg/dl (70-99)
[2023-11-07] MEDS: NOVOLOG FLEXPEN-LOW RESISTANCE SC (11:27)
[2023-11-07] MEDS: NOVOLOG FLEXPEN 6 UNITS SC ×2 (12:01→17:11)
--- NOTE | 2023-11-07 13:55 | W.PN.HOSP.TC ---
Addendum entered and electronically signed by Timi Lombardo MD 11/07/23 15:38:
#
Acute Osteomyelitis
Original Note:
Today's Communication/Plan
-
NWB right foot for 24 hours.
Wedge surgical shoe to bedside.
PT/OT
Abx
Assessment / Plan
Assessment / Plan
Physical Exam
General: Well Developed, Well Nourished and No Apparent Distress
HEENT: NormoCephalic, Moist mucous membranes and Atraumatic
Respiratory: Clear
Cardiac: S1/S2 and Regular Rhythm; No Murmur or Rub
GI: Soft, Non Tender, Non Distended and Normal Bowel Sounds; No Organomegaly
Rectal: Deferred by Provider
Musculoskeletal: No Clubbing, No Cyanosis and No Edema
Skin: Other (right foot wound with surrounding erythema ) - both feet wrapped with shantanu bandages; No Rash
Neuro: Nonfocal/grossly intact
PLAN:
# Diabetic foot infection with ulceration over the lateral/plantar aspect of head of fifth metatarsal with underlying osteomyelitis
-blood cultures: NGTD, mrsa neg - stop vanco
-wound culture, strep agalactiae
-Unasyn
-Podiatry consulted - OR today - Partial/proximal fifth ray amputation, right foot�
-Infectious disease consult
-arterial US/ JORGITO: WNL b/l - no need for vascular to follow inpatient - confirmed by Dr. De Dios
-NWB right foot for 24 hours.
-Wedge surgical shoe to bedside.
# Likely untreated diabetes
#Diabetic neuropathy
-Check A1c - 10.0
-Insulin sliding scale
-DM educator consulted
-Lantus 12, NovoLog 6, metformin 500mg
Thrombocytosis
Most likely acute phase reactant secondary to acute infection
Continue to monitor with resuscitation
Presumably chronic anemia
-Hemoglobin 11.9, no baseline
Active smoker
-Nicotine patch started
-educated on cessation
Hyponatremia
-mild
-ctm
#Hypertension
-start enalapril in setting of htn and DM
Marijuana use
Full code
DVT prophylaxis�heparin
Diabetic diet
Total time spent on today's encounter was 52 minutes which included time spent in counseling the patient/family regarding diagnosis and treatment plan as listed above, goals of care, and symptom management. Case was discussed with nursing staff,
specialists, and care coordinators/case management. All labs and imaging personally reviewed by me. Remainder the time spent in detailed review of previous records, lab data, imaging, and other medical provider documentation.
Anticipated Discharge: 24 - 48 hours
Subjective/Interval History
-
Date of Service: November 07, 2023
No acute events
Objective Data
-
Labs:
Laboratory Results
11/07/23
05:51
WBC 12.9 H
Hgb 13.3
Hct 40.3
Plt Count 545 H D
Sodium 133 L
Potassium 4.3
Chloride 99
Carbon Dioxide 26
BUN 19
Creatinine 0.7
Glucose 177 H
Calcium 8.6
Vital Signs:
Vital Signs
Temp Pulse Resp BP Pulse Ox
98.2 F 78 16 122/80 96
11/07/23 12:33 11/07/23 12:33 11/07/23 12:33 11/07/23 12:33 11/07/23 12:33
I&O
11/06/23 11/07/23 11/08/23
06:59 06:59 06:59
Intake Total 1310 / 1310 760 / 760 50 / 50
Balance 1310 / 1310 760 / 760 50 / 50
Review of Systems
-
History Source: Patient
All other systems: Not reviewed unless documented
Data Reviewed
-
Diagnostic Radiology: Image personally visualized and interpreted and Report Reviewed by me
Ultrasound: Image personally visualized and interpreted and Report Reviewed by me
MRI: Image personally visualized and interpreted and Report Reviewed by me
Labs: Labs Reviewed by me
[2023-11-07] MEDS: ROXICODONE 5 MG PO ×2 (14:06→20:00)
[2023-11-07 15:23] LABS: Glucose - Point of Care 174 mg/dl (70-99)
--- NOTE | 2023-11-07 16:15 | W.PN.ID1 ---
Date of Service
Date of Service: November 07, 2023
Today's Communication
Continue Unasyn.
Assessment / Plan
Diabetic Foot Infection of R foot
Diabetic Foot Wounds of the L foot
Acute Osteomyelitis of R 5th MTP 2/2 dm foot infection
uncontrolled dm2
active smoker
-JORGITO,TBI normal
- blood cultures x2 neg to date
- wound culture in progress - GBS
- mrsa screen negative
- appreciate podiatry input. 11/06 s/p Partial/proximal fifth ray amputation, right foot�
- OR cx and path pending.
-Continue Unasyn.
- emphasized need to get DM2 under control and to stop using nicotine at a minimum to prevent progression, relapse, new infection
- patient shares he is uninsured which has impacted his ability to seek health care; have encouraged him to plan to follow up with the [facility]
Chief Complaint
-: Other (diabetic foot infection)
Subjective / Review of Systems
No post-op pain.
Vital Signs / Physical Exam
Vital Signs
Vital Signs
Temp Pulse Resp BP Pulse Ox
98.5 F 74 18 158/78 96
11/07/23 13:35 11/07/23 13:35 11/07/23 13:35 11/07/23 13:35 11/07/23 13:35
Physical Exam
Constitutional: No Acute Distress
Pulmonary: Clear
Gastrointestinal: Soft, Non Tender and Non Distended
Objective Data
Lab Data
Lab Results
11/07/23 05:51
11/07/23 05:51
Estimated Creat Clear 117 ml/min 11/07/23 05:51
Lactic Acid Cancelled 11/03/23 17:45
Total Bilirubin 0.5 mg/dl (0.2-1.3) 11/04/23 05:23
AST 25 U/L (17-59) 11/04/23 05:23
ALT 35 U/L (0-50) 11/04/23 05:23
Alkaline Phosphatase 115 U/L (38-126) 11/04/23 05:23
Most recent labs reviewed.
Micro Results:
11/03/23 14:36 Blood Culture - Preliminary
Blood/Venous No Growth in 4 days- Final report to follow
11/03/23 14:36 Blood Culture - Preliminary
Blood/Venous No Growth in 4 days- Final report to follow
11/07/23 08:48 Tissue Culture - Pending
Toe Gram Stain - Pending
11/03/23 14:36 Wound Culture - Final
Foot - Right Streptococcus agalactiae
Gram Stain - Final
11/04/23 03:04 MRSA Screen - Final
Nose No Methicillin Resistant Staphylococcus aureus isolated.
--- NOTE | 2023-11-07 16:35 | CM ---
Spoke with sister who pts lives with . She is concerned that he will lose his job now and not be able to take care of himself.Encouraged her to call [facility] collect recourses from them .possible elder law.Sister said he has special needs
all his life.He has a job but unsure if he will be able to return.
Will need PT OT see him Postop .
Will probably need VN if accepted.
PLAN Follow PT OT evals
[2023-11-07] MEDS: GLUCOPHAGE 500 MG PO (17:11)
[2023-11-07] MEDS: NOVOLOG FLEXPEN-LOW RESISTANCE 1 UNITS SC (17:17)
[2023-11-07] MEDS: HEPARIN 5000 UNITS SC (19:53)
[2023-11-07] MEDS: THERAGRAN 1 TABLET PO (19:54)
[2023-11-07 21:10] LABS: Glucose - Point of Care 229 mg/dl (70-99)
[2023-11-07] MEDS: LANTUS 0.119999999999999996 UNITS SC (21:49)
[2023-11-08] VITALS (8 sets, daily range): BP systolic 113–141; BP diastolic 67–75; PULSE 73–74; O2SAT 95–96
[2023-11-08] MEDS: UNASYN IV ×4 (05:26→23:10)
[2023-11-08] MEDS: ROXICODONE 5 MG PO ×3 (05:31→21:13)
[2023-11-08 07:19] LABS: Glucose - Point of Care 148 mg/dl (70-99)
[2023-11-08 07:27] LABS: Hematocrit 35.4 % (39.0-52.0); Hemoglobin 11.9 g/dL (13.0-18.0); Mean Corp Hgb Conc. 33.6 g/dL (33.0-37.0); Mean Corpuscular Hgb 28.4 pg (27.0-31.0); Mean Corpuscular Volume 84.5 fL (80.0-94.0); Mean Platelet Volume 9.1 fL (7.4-10.4); Platelet Count 485 10^3/uL (130-400); Red Blood Cell Count 4.19 10^6/uL (4.70-6.10); Red Cell Dist. Width 13.5 % (11.5-14.5); White Blood Cell Count 13.7 10^3/uL (4.8-10.8)
[2023-11-08 07:53] LABS: Blood Urea Nitrogen 13 mg/dl (9-20); Calcium 8.6 mg/dl (8.4-10.2); Carbon Dioxide 27 mmol/L (22-30); Chloride 98 mmol/L (98-107); Estimated Creatinine Clearance > 125 ml/min; Glucose 144 mg/dl (70-99); Potassium 4.2 mmol/L (3.5-5.1); Sodium 134 mmol/L (135-145); eGFR > 60.00
--- NOTE | 2023-11-08 08:06 | PN.DE.MGMTRT ---
Insulin Management
- -
11/08/2023: Diabetes Management F/U:
63 year old male admitted with osteomyelitis of 5th metatarsal. PMH includes: Anemia, Diabetic Peripheral Neuropathy, ETOH use, Active smoker, 1/2PPD, marijuana use and T2DM, Was taking cinnamon caps for glucose management at home. On admission,
A1C was 10.0%, Cr 0.5, eGFR>60 on admission.
Pt POD#1 S/P Partial/proximal 5th ray amputation of right foot. Pt seen this morning, A/O x3, sitting up in bed, offers no complaints.
Glucose remained stable, noted for elevation up to 229 @ HS, received Lantus 12 units, FBG 144 this AM.
Requiring additional 1-2 units Premeal.
Will increase NovoLog to 7 units AC. Cont Lantus 12 units @ HS and Metformin 500mg BID,
Will cont to follow and make further adjustments as necessary
Diabetes History
- -
Type of Diabetes: 2 requiring insulin
Pre-Admission Diabetes Regimen
11/07/23 11/08/23
05:51 06:26
Creatinine 0.7 0.6 L
Lab Results
Hemoglobin A1c 10.0 % (4.0-5.6) H 11/04/23 05:23
Insulin Pump Settings
IP Diabetes Regimen
11/07/23 11/07/23 11/07/23
05:51 09:29 11:22
Glucose 177 H
POC Glucose 143 H 128 H
11/07/23 11/07/23 11/08/23
15:21 21:07 06:26
Glucose 144 H
POC Glucose 174 H 229 H
11/08/23
07:08
Glucose
POC Glucose 148 H
Meal type: Dinner
Meal type: Lunch
Meal type: Breakfast
Amount consumed: 100%
Amount consumed: 100%
Patient Education
[2023-11-08] MEDS: NOVOLOG FLEXPEN 6 UNITS SC (08:17)
[2023-11-08] MEDS: NOVOLOG FLEXPEN-LOW RESISTANCE SC ×3 (08:18→17:33)
[2023-11-08] MEDS: GLUCOPHAGE 500 MG PO ×2 (08:18→16:50)
[2023-11-08] MEDS: HEPARIN 5000 UNITS SC ×2 (08:19→21:13)
[2023-11-08] MEDS: VASOTEC 5 MG PO (08:19)
--- NOTE | 2023-11-08 10:30 | W.PN.POD ---
Today's Communication
Today's Communication
Surgical site stable and viable, right foot..
Anticipate discharge planning today.
Assessment / Plan
-
Assessment:
S/P 24 hours, fifth ray amptutation, right foot.
Diabetic foot infection with necrotic dorsal and plantar forefoot wounds with acute osteomyelitis, right foot.
Chronic diabetic wounds, left foot, stable.
Type 2 Diabetes, uncontrolled.
Diabetic peripheral neuropathy
Active Smoker
Anemia
Plan:
Surgical site is viable and stable, right foot.
Packing removed at bedside. Dressing applied.
Likely surgical cure of osteomyelitis.
ID note appreciated. Currently IV Unasyn.
Anticipate discharge planning today.
The patient will be followed in my office.
He must remain NWB on the right foot. Crutches vs Knee Scooter TBD by PT.
Subjective
Chief Complaint
S/P 24 hours fifth ray amputation, right foot
Subjective
Patient is seen resting comfortably in bed. His sister is present.
He denies fever, chills, sweats, SOB, chest pain, nausea/vomiting.
His right foot pain is well controlled with PO analgesics.
Objective
Temp Pulse Resp BP Pulse Ox
98.8 F 74 18 139/71 98
11/08/23 07:00 11/08/23 08:19 11/08/23 07:00 11/08/23 08:19 11/08/23 08:42
11/08/23 06:26
11/08/23 06:26
Vital Signs and Lab results were reviewed.
WBC: 13.7, BG 144
Blood Cultures X 2: No growth 48h
Wound Culture: Final: Strep Agalactiae
11/03/23 Right foot XRAY: There is soft tissue deformity/ulceration over the lateral and plantar aspects of the head of the fifth metatarsal with underlying destruction of the head of the fifth metatarsal suggesting osteomyelitis.
11/04/23 MRI of the right foot:� �
Bony destruction involving the distal aspect of the fifth metatarsal bone and the proximal margin of the proximal phalanx of the right fifth toe, findings compatible with osteomyelitis.
There is also abnormal enhancing intermediate T1-weighted signal extending to the level of the proximal fifth metatarsal shaft, suspicious for osteomyelitis.
There is abnormal signal and enhancement involving the marrow of the proximal, middle, and distal phalanges of the right fifth toe, suspicious for osteoarthritis.
There is nonenhancing intermediate T1-weighted signal within the soft tissues dorsal to the fifth and fourth metatarsal bones and also surrounding the right fifth toe. This would suggest a devitalized collection within the soft tissues, and could
represent infected collection. This appears to communicate with the open dorsal wound.
11/04/23 Arterial ultrasound of LE's:�Right JORGITO:1.12, TBI:0.80 Left JORGITO:1.17, TBI:1.16� �ABIs and TBI's within normal limits bilaterally. Arterial duplex examination reveals multiphasic waveforms from the common femoral artery through the popliteal
artery bilaterally with no focal velocity elevations to suggest significant stenosis bilaterally. Multiphasic continuous Doppler waveforms are demonstrated in the dorsalis pedis and posterior tibial arteries bilaterally.
Exam:
Afebrile, VSS.
Dressings to right foot intact with mild blood staining in the shantanu wrap, essentially dry.
Capillary refill to the digits intact, VSI to the RLE.
Surgical wound along the dorsolateral aspect of the right midfoot and forefoot is viable and stable. Retention sutures intact. Granulation noted dorsally and to a lessor degree the chronic ulceration plantarly-full thickness defect.
No cellulitis, malodor, active discharge, necrosis or local signs of infection noted.
11/07/23 Post OP XRAYs, right foot: Interval fifth metatarsal resection to the base, amputation of the fifth digit with intact resection margins. No acute osseous process noted.
[2023-11-08 11:03] LABS: Glucose - Point of Care 98 mg/dl (70-99)
--- NOTE | 2023-11-08 11:53 | W.PN.ID1 ---
Date of Service
Date of Service: November 08, 2023
Today's Communication
- switched to augmentin x 5 more days for any residual skin/soft tissue infection
- emphasized need to get DM2 under control and to stop using nicotine at a minimum to prevent progression, relapse, new infection
- now insured; encouraged follow up with a PCP - family medicine clinic could get him in quickly.
- follow up with podiatry as well. follow up with ID PRN
Assessment / Plan
Diabetic Foot Infection of R foot
Diabetic Foot Wounds of the L foot
Acute Osteomyelitis of R 5th MTP 2/2 dm foot infection
uncontrolled dm2
active smoker
- appreciate podiatry input. 11/06 s/p Partial/proximal fifth ray amputation, right foot�
- OR cx gram stain moderate gpcs, few gnr; path pending
- switched to augmentin x 5 more days for any residual skin/soft tissue infection
- emphasized need to get DM2 under control and to stop using nicotine at a minimum to prevent progression, relapse, new infection
- now insured; encouraged follow up with a PCP - family medicine clinic could get him in quickly.
- follow up with podiatry as well. follow up with ID PRN
Chief Complaint
-: Other (diabetic foot infection)
Subjective / Review of Systems
Tmax 100.2
bp stable
wbc mildly elevated, thrombocytosis ongoing
wound cx GBS only; tissue culture - moderate gpcs few gnr
s/p partial/proximal 5th ray amputation
in good spirits
Vital Signs / Physical Exam
Vital Signs
Vital Signs
Temp Pulse Resp BP Pulse Ox
100.2 F 72 16 123/67 96
11/08/23 11:00 11/08/23 11:00 11/08/23 11:00 11/08/23 11:00 11/08/23 11:00
Physical Exam
Constitutional: No Acute Distress
Cardiovascular: Regular Rate and S1/S2; Negative Murmur or Rub
Pulmonary: Clear and Symmetric; Negative Wheezes or Rales
Gastrointestinal: Soft, Non Tender, Non Distended and Normal Bowel Sounds
Skin: Warm and Dry; Negative Rash or Jaundice
Wound: Other (surgical dressing clean, dry, intact )
Objective Data
Lab Data
Lab Results
11/08/23 06:26
11/08/23 06:26
Estimated Creat Clear > 125 ml/min 11/08/23 06:26
Lactic Acid Cancelled 11/03/23 17:45
Total Bilirubin 0.5 mg/dl (0.2-1.3) 11/04/23 05:23
AST 25 U/L (17-59) 11/04/23 05:23
ALT 35 U/L (0-50) 11/04/23 05:23
Alkaline Phosphatase 115 U/L (38-126) 11/04/23 05:23
Most recent labs reviewed.
Micro Results:
11/07/23 08:48 Tissue Culture - Preliminary
Toe Gram Stain - Preliminary
11/03/23 14:36 Blood Culture - Preliminary
Blood/Venous No Growth in 4 days- Final report to follow
11/03/23 14:36 Blood Culture - Preliminary
Blood/Venous No Growth in 4 days- Final report to follow
11/03/23 14:36 Wound Culture - Final
Foot - Right Streptococcus agalactiae
Gram Stain - Final
11/04/23 03:04 MRSA Screen - Final
Nose No Methicillin Resistant Staphylococcus aureus isolated.
Care Review
Plan reviewed with: Physician (Dr Ferdinand villarreal)
[2023-11-08] MEDS: NOVOLOG FLEXPEN 7 UNITS SC ×2 (12:27→17:34)
[2023-11-08] MEDS: FLUSH (NSS) 1 FLUSH IV ×2 (12:28→17:34)
--- NOTE | 2023-11-08 13:13 | W.PN.HOSP.TC ---
Today's Communication/Plan
-
educate insulin inj
continue abx
PT eval
discharge planning
Assessment / Plan
Assessment / Plan
# Diabetic foot infection with ulceration over the lateral/plantar aspect of head of fifth metatarsal with underlying osteomyelitis
-blood cultures: NGTD, mrsa neg - stop vanco
-wound culture, strep agalactiae
-s/p Partial/proximal fifth ray amputation, right foot�
-arterial US/ JORGITO: WNL b/l - no need for vascular to follow inpatient - confirmed by Dr. De Dios
-NWB right foot - PT evaluation pending
-Wedge surgical shoe to bedside.
-on IV unasyn, transition to oral augmentin 5 days at discharge.
# Likely untreated diabetes
#Diabetic neuropathy
-Check A1c - 10.0
-Lantus 12, NovoLog 7U premeal, metformin 500mg
-Patient usually usual, instructed RN to educate patient.
Thrombocytosis
Most likely acute phase reactant secondary to acute infection
Continue to monitor with resuscitation
Presumably chronic anemia
-Hemoglobin 11.9, no baseline
Active smoker
-Nicotine patch started
-educated on cessation
Hyponatremia
-mild
-ctm
Essential Hypertension
-start enalapril in setting of htn and DM
Marijuana use
Full code
DVT prophylaxis�heparin
Anticipated Discharge: Within 24 hours
Subjective/Interval History
-
Date of Service: November 08, 2023
Resting comfortably in bed
denies of having any issues in night
Objective Data
-
Labs:
Laboratory Results
11/08/23
06:26
WBC 13.7 H
Hgb 11.9 L
Hct 35.4 L
Plt Count 485 H
Sodium 134 L
Potassium 4.2
Chloride 98
Carbon Dioxide 27
BUN 13
Creatinine 0.6 L
Glucose 144 H
Calcium 8.6
Vital Signs:
Vital Signs
Temp Pulse Resp BP Pulse Ox
100.2 F 72 16 123/67 96
11/08/23 11:00 11/08/23 11:00 11/08/23 11:00 11/08/23 11:00 11/08/23 11:00
I&O
11/07/23 11/08/23 11/09/23
06:59 06:59 06:59
Intake Total 760 / 760 730 / 730 480 / 480
Output Total 350 / 350 1600 / 1600
Balance 760 / 760 380 / 380 -1120 / -1120
Review of Systems
-
Respiratory: Reports No Symptoms
Cardiac: Reports No Symptoms
Abdomen/GI: Reports No Symptoms
Physical Exam
-
General: Negative Appears in Distress
HEENT: Negative Oxygen
Respiratory: Clear to Auscultation
Musculoskeletal: Other (Right leg shantanu wrapping/dressing in place)
Neuro: Awake, Alert and Oriented
--- NOTE | 2023-11-08 15:58 | PTCARENOTE ---
Pt AAO x3, JEAN; OOB with assist of PT x2/walker, otherwise dose not want to participate in OOB activity. VSS. On room air- pulse ox 95%. Abd soft, raine PO well. Voiding clear yellow urine in urinal . Bilat foot dsgs D/I. Resting in bed at
present, no c/o. Will continue to monitor.
[2023-11-08 16:47] LABS: Glucose - Point of Care 98 mg/dl (70-99)
--- NOTE | 2023-11-08 17:04 | CM ---
PT OT recommended VN
Pt lives with sister who assists as needed.
LM with sister to set up a PCP for her brother suggested [facility]. [phone].
Dr oDnovan Streeter said he would sign his VN orders. Ramona OWENSVN given message abut setting up [facility] at home.
Pt consented to [facility].
PLAN Home with [facility] if accepted
--- NOTE | 2023-11-08 17:46 | PTCARENOTE ---
Attempted to have pt demonstrate self-injection of insulin; pt refused; became angry; stated 'I don't need insulin anyway- my blood sugar is 98'. Pt also stating that he does not want insulin at home after DC. Dr. Streeter notified.
[2023-11-08] MEDS: THERAGRAN 1 TABLET PO (21:13)
[2023-11-08 21:26] LABS: Glucose - Point of Care 113 mg/dl (70-99)
[2023-11-08] MEDS: LANTUS 0.119999999999999996 UNITS SC (22:04)
[2023-11-08] MEDS: IMODIUM 2 MG PO (22:05)
[2023-11-09] MEDS: ROXICODONE 5 MG PO ×3 (04:48→20:06)
[2023-11-09] MEDS: UNASYN IV ×2 (05:21→12:54)
[2023-11-09 07:00] VITALS: BP 133/77
[2023-11-09 07:30] LABS: Glucose - Point of Care 119 mg/dl (70-99)
[2023-11-09] MEDS: VASOTEC 5 MG PO (07:35)
[2023-11-09] MEDS: GLUCOPHAGE 500 MG PO ×2 (07:35→16:44)
[2023-11-09] MEDS: NOVOLOG FLEXPEN-LOW RESISTANCE SC ×3 (07:35→17:55)
[2023-11-09] MEDS: HEPARIN 5000 UNITS SC ×2 (07:36→20:05)
[2023-11-09 07:56] LABS: Hematocrit 34.9 % (39.0-52.0); Hemoglobin 11.8 g/dL (13.0-18.0); Mean Corp Hgb Conc. 33.8 g/dL (33.0-37.0); Mean Corpuscular Hgb 28.4 pg (27.0-31.0); Mean Corpuscular Volume 83.9 fL (80.0-94.0); Mean Platelet Volume 8.9 fL (7.4-10.4); Platelet Count 493 10^3/uL (130-400); Red Blood Cell Count 4.16 10^6/uL (4.70-6.10); Red Cell Dist. Width 13.7 % (11.5-14.5); White Blood Cell Count 12.7 10^3/uL (4.8-10.8)
[2023-11-09] MEDS: NOVOLOG FLEXPEN 7 UNITS SC ×2 (08:02→12:55)
[2023-11-09 08:18] LABS: Blood Urea Nitrogen 16 mg/dl (9-20); Calcium 8.6 mg/dl (8.4-10.2); Carbon Dioxide 25 mmol/L (22-30); Chloride 99 mmol/L (98-107); Estimated Creatinine Clearance > 125 ml/min; Glucose 131 mg/dl (70-99); Potassium 4.2 mmol/L (3.5-5.1); Sodium 134 mmol/L (135-145); eGFR > 60.00
[2023-11-09 10:44] VITALS: BP 126/75; PULSE 65; O2SAT 97
--- NOTE | 2023-11-09 11:11 | W.PN.HOSP.TC ---
Today's Communication/Plan
-
d/c home health
Assessment / Plan
Assessment / Plan
# Diabetic foot infection with ulceration over the lateral/plantar aspect of head of fifth metatarsal with underlying osteomyelitis
-blood cultures: NGTD, mrsa neg - stop vanco
-wound culture, strep agalactiae
-s/p Partial/proximal fifth ray amputation, right foot�
-arterial US/ JORGITO: WNL b/l - no need for vascular to follow inpatient - confirmed by Dr. De Dios
-NWB right foot - PT evaluated
-Wedge surgical shoe to bedside.
-on IV unasyn, transition to oral augmentin 5 days at discharge.
# Likely untreated diabetes
#Diabetic neuropathy
-Check A1c - 10.0
-Lantus 12, NovoLog 7U premeal, metformin 500mg
-Patient usually usual, instructed RN to educate patient.
Thrombocytosis
Most likely acute phase reactant secondary to acute infection
Continue to monitor with resuscitation
Presumably chronic anemia
-Hemoglobin 11.9, no baseline
Active smoker
-Nicotine patch started
-educated on cessation
Hyponatremia
-mild
-ctm
Essential Hypertension
-start enalapril in setting of htn and DM
Marijuana use
Full code
DVT prophylaxis�heparin
Patient having difficulty getting around and should use rolling walker to prevent fall. Patient also non weight bearing on right foot and should use rolling walker.
Anticipated Discharge: Today
Subjective/Interval History
-
Date of Service: November 09, 2023
resting comfortably in bed
some pain at surgical site
no acute issues reported overnight
Objective Data
-
Labs:
Laboratory Results
11/09/23
06:13
WBC 12.7 H
Hgb 11.8 L
Hct 34.9 L
Plt Count 493 H
Sodium 134 L
Potassium 4.2
Chloride 99
Carbon Dioxide 25
BUN 16
Creatinine 0.5 L
Glucose 131 H
Calcium 8.6
Vital Signs:
Vital Signs
Temp Pulse Resp BP Pulse Ox
98.8 F 71 18 133/77 95
11/09/23 07:00 11/09/23 07:35 11/09/23 07:00 11/09/23 07:35 11/09/23 07:34
I&O
11/08/23 11/09/23 11/10/23
06:59 06:59 06:59
Intake Total 730 / 730 2220 / 2220
Output Total 350 / 350 2700 / 2700
Balance 380 / 380 -480 / -480
Review of Systems
-
Respiratory: Reports No Symptoms
Cardiac: Reports No Symptoms
Abdomen/GI: Reports No Symptoms
Physical Exam
-
General: Negative Appears in Distress
HEENT: Negative Oxygen
Respiratory: Clear to Auscultation
Musculoskeletal: Other (Right leg shantanu wrapping/dressing in place)
Neuro: Awake, Alert and Oriented
[2023-11-09 11:52] LABS: Glucose - Point of Care 84 mg/dl (70-99)
--- NOTE | 2023-11-09 12:30 | PN.DE.MGMTRT ---
Insulin Management
- -
11/09/2023: Diabetes Management Follow up
Patient admitted for Diabetic foot infection with ulceration over the lateral/plantar aspect of head of 5th metatarsal with underlying osteomyelitis.
PMH includes: Anemia, Diabetic Peripheral Neuropathy, ETOH use, Active smoker, 1/2 PPD, marijuana use and T2DM, Was taking cinnamon caps for glucose management at home. On admission, A1C was 10.0%, Cr 0.5, eGFR>60. Pt is A/O x3, sitting up in bed,
eating lunch, offers no complaints.
States he's had diabetes for many years, was taking insulin and oral medications but stopped taking all diabetes medications due to cost and loss of insurance.
He told the nurse last evening he would not take insulin.
I discussed the importance of healing and preventing further amputation and to consider taking insulin and following with his primary for possibility of oral medication after wound is completely healed. He agreed. Nurse to reinforce self injection
technique.
Diabetes History
- -
Type of Diabetes: 2 requiring insulin
Pre-Admission Diabetes Regimen
11/09/23
06:13
Creatinine 0.5 L
Lab Results
Hemoglobin A1c 10.0 % (4.0-5.6) H 11/04/23 05:23
Insulin Pump Settings
IP Diabetes Regimen
11/08/23 11/08/23 11/09/23
16:45 21:25 06:13
Glucose 131 H
POC Glucose 98 113 H
11/09/23 11/09/23
07:22 11:46
Glucose
POC Glucose 119 H 84
Meal type: Breakfast
Meal type: Dinner
Meal type: Lunch
Amount consumed: 100%
Amount consumed: 100%
Amount consumed: 100%
Patient Education
--- NOTE | 2023-11-09 12:33 | W.PN.ID1 ---
Date of Service
Date of Service: November 09, 2023
Today's Communication
cancelled c diff testing; ordered standard precautions
switched to augmentin x 5 more days for any residual skin/soft tissue infection
follow up with podiatry
Assessment / Plan
Diabetic Foot Infection of R foot
Diabetic Foot Wounds of the L foot
Acute Osteomyelitis of R 5th MTP 2/2 dm foot infection
uncontrolled dm2
active smoker
- appreciate podiatry input. 11/06 s/p Partial/proximal fifth ray amputation, right foot�
- 11/06 OR culture: gram stain was positive, culture in progress - culture and path was from grossly infected bone and expected to be positive. A clean margin was recorded
- switched to augmentin x 5 more days for any residual skin/soft tissue infection
- loose stool without trinh diarrhea; very unlikely C difficile, not need to check unless >/= 3 liquid stools, abdominal pain, new fevers etc. Most likely this is mild dysbiosis from the antibiotics.
- discussed with Dr Streeter
- Cancelled C diff test and stool culture
- standard precautions
- emphasized need to get DM2 under control and to stop using nicotine at a minimum to prevent progression, relapse, new infection
- now insured; encouraged follow up with a PCP - family medicine clinic could get him in quickly.
- follow up with podiatry as well. follow up with ID PRN
Chief Complaint
-: Other (diabetic foot infection)
Subjective / Review of Systems
afebrile
bp stable
stable leukocytosis
cr stable
thrombocytosis ongoing
11/06 OR culture: gram stain was positive, culture in progress - culture and path was grossly infected bone
two episodes of loose - not liquid stool yesterday - previously recorded as formed; after sample was sent then had Imodium - no further BMs since
now on enhanced precautions
Vital Signs / Physical Exam
Vital Signs
Vital Signs
Temp Pulse Resp BP Pulse Ox
98.8 F 71 18 133/77 95
11/09/23 07:00 11/09/23 07:35 11/09/23 07:00 11/09/23 07:35 11/09/23 07:34
Objective Data
Lab Data
Lab Results
11/09/23 06:13
11/09/23 06:13
Estimated Creat Clear > 125 ml/min 11/09/23 06:13
Lactic Acid Cancelled 11/03/23 17:45
Total Bilirubin 0.5 mg/dl (0.2-1.3) 11/04/23 05:23
AST 25 U/L (17-59) 11/04/23 05:23
ALT 35 U/L (0-50) 11/04/23 05:23
Alkaline Phosphatase 115 U/L (38-126) 11/04/23 05:23
Most recent labs reviewed.
Micro Results:
11/03/23 14:36 Blood Culture - Final
Blood/Venous No Growth - Final Report
11/03/23 14:36 Blood Culture - Final
Blood/Venous No Growth - Final Report
11/07/23 08:48 Tissue Culture - Preliminary
Toe Gram Stain - Preliminary
11/03/23 14:36 Wound Culture - Final
Foot - Right Streptococcus agalactiae
Gram Stain - Final
11/04/23 03:04 MRSA Screen - Final
Nose No Methicillin Resistant Staphylococcus aureus isolated.
Care Review
Plan reviewed with: Nurse (raine townsend)
[2023-11-09] MEDS: AUGMENTIN 875 MG/125 MG 1 TABLET PO ×2 (12:54→20:04)
[2023-11-09 15:00] VITALS: BP 124/66
[2023-11-09 15:10] VITALS: BP 121/70; PULSE 67; O2SAT 96
--- NOTE | 2023-11-09 15:53 | VNURNOTE ---
Home Health Liaison met with patient at 1200 to discuss [facility] nurse/therapy, visits, schedule and homebound status. Patient is agreeable and understands that visits at home will be 2-3 x per week to assess and teach medical management. Patient
understands he will need to become established with a PCP or [facility]idency [facility] prior to start of services.
[facility] brochure provided with contact information.
[facility] referral completed in [facility].
Call to patient's sister Dannielle to review and discuss above plan.
Dannielle has made an appointment for patient at [facility] 11[facility]. Patient has f/u podiatry appointment 11/10.
Dannielle verbalized her frustration with patient and his needs, she works and is frustrated with him not helping himself or following through with recommendations.
Wound orders clarified with Dr Wong and patient will not need SN, as dressings will be changed in office weekly.
Dr Wong agreeable to sign homecare orders temporarily for PT if needed.
SAW working on walker order/delivery to patient room by [facility].
--- NOTE | 2023-11-09 16:00 | PTCARENOTE ---
Pt AAO x3, JEAN; OOB to [facility] with assist x1/walker, raine well, pt says he does not want to go home 'Until I can bear more weight on my feet'. VSS. On room air- pulse ox 96%. Abd soft, rounded, raine PO well. No further episodes of loose BM's this
shift. Voids clear yellow urine in urinal. Bilat foot dsgs D/I; pt keeps BLE elevated on pillows. Resting in bed at present, no c/o. Will continue to monitor.
--- NOTE | 2023-11-09 16:03 | CM ---
CM reviewed pt with Dr Streeter and Ramona/[facility]- ready for dc
VN has arranged for senior analyst developer to manage HC until PCP can be arranged
Bandages and wound care will be done in office by senior analyst developer weekly
Knee scooter or wheel chair recommended
Reviewed out of pockets costs with pt- he declined
Noted limited financial resources
In agreement with WW if full coverage
Per [facility] therapy, no agreement with pt's insurance to issue WW bedside
Call with [facility] and referral and Rx faxed
Full coverage, $0 copay
WW to be delivered bedside tomorrow
Bedside update to pt- resident clinic info provided
Update to sister- she will call for PCP appt at resident clinic
She works tomorrow afternoon
Pt will need to be discharged no later than lunch time tomorrow for her to transport home
Update to [facility] requesting early delivery of WW bedside
VN order on chart
Discharge Disposition- home with [facility] and WW issued by [facility] tomorrow- sister transport
[2023-11-09 16:56] LABS: Glucose - Point of Care 71 mg/dl (70-99)
[2023-11-09] MEDS: NOVOLOG FLEXPEN SC (16:56)
[2023-11-09] MEDS: NOVOLOG FLEXPEN 3 UNITS SC (17:56)
[2023-11-09 21:35] LABS: Glucose - Point of Care 105 mg/dl (70-99)
[2023-11-09] MEDS: THERAGRAN 1 TABLET PO (22:38)
[2023-11-09] MEDS: LANTUS 0.119999999999999996 UNITS SC (22:39)
[2023-11-09 23:41] VITALS: BP 138/75
[2023-11-10] MEDS: ROXICODONE 5 MG PO ×2 (04:09→08:22)
[2023-11-10 07:00] VITALS: BP 152/79
[2023-11-10 07:40] LABS: Glucose - Point of Care 199 mg/dl (70-99)
[2023-11-10 07:58] LABS: Hematocrit 34.9 % (39.0-52.0); Hemoglobin 11.6 g/dL (13.0-18.0); Mean Corp Hgb Conc. 33.2 g/dL (33.0-37.0); Mean Corpuscular Hgb 28.4 pg (27.0-31.0); Mean Corpuscular Volume 85.5 fL (80.0-94.0); Mean Platelet Volume 9.2 fL (7.4-10.4); Platelet Count 503 10^3/uL (130-400); Red Blood Cell Count 4.08 10^6/uL (4.70-6.10); Red Cell Dist. Width 13.7 % (11.5-14.5); White Blood Cell Count 11.7 10^3/uL (4.8-10.8)
[2023-11-10] MEDS: NOVOLOG FLEXPEN 3 UNITS SC (08:15)
[2023-11-10] MEDS: NOVOLOG FLEXPEN-LOW RESISTANCE 1 UNITS SC (08:15)
[2023-11-10] MEDS: VASOTEC 5 MG PO (08:16)
[2023-11-10] MEDS: GLUCOPHAGE 500 MG PO (08:16)
[2023-11-10] MEDS: HEPARIN 5000 UNITS SC (08:19)
[2023-11-10] MEDS: AUGMENTIN 875 MG/125 MG 1 TABLET PO (08:19)
--- NOTE | 2023-11-10 08:57 | W.PN.ID1 ---
Date of Service
Date of Service: November 10, 2023
Today's Communication
- switched to augmentin x 4 more days for any residual skin/soft tissue infection
- loose stool without trinh diarrhea; very unlikely C difficile, not need to check unless >/= 3 liquid stools, abdominal pain, new fevers etc. Most likely this is mild dysbiosis from the antibiotics.
- recommend probiotic foods at home
- follow up with PCP
- follow up with podiatry as well. follow up with ID PRN
Assessment / Plan
Diabetic Foot Infection of R foot
Diabetic Foot Wounds of the L foot
Acute Osteomyelitis of R 5th MTP 2/2 dm foot infection
uncontrolled dm2
active smoker
- appreciate podiatry input. 11/06 s/p Partial/proximal fifth ray amputation, right foot�
- 11/06 OR culture: gram stain was positive, culture in progress - culture and path was from grossly infected bone and expected to be positive. A clean margin was recorded
- switched to augmentin x 4 more days for any residual skin/soft tissue infection
- loose stool without trinh diarrhea; very unlikely C difficile, not need to check unless >/= 3 liquid stools, abdominal pain, new fevers etc. Most likely this is mild dysbiosis from the antibiotics.
- recommend probiotic foods at home
- follow up with PCP
- follow up with podiatry as well. follow up with ID PRN
Chief Complaint
-: Other (diabetic foot infection)
Subjective / Review of Systems
afebrile
bp stable
on room air
declining leukocytosis
cr stable
tissue culture gbs
no bms recorded yesterday - reports loose stool only no liquid diarrhea
Vital Signs / Physical Exam
Vital Signs
Vital Signs
Temp Pulse Resp BP Pulse Ox
98.1 F 67 18 152/79 97
11/10/23 07:00 11/10/23 08:16 11/10/23 07:00 11/10/23 08:16 11/10/23 07:00
Physical Exam
Constitutional: No Acute Distress
Cardiovascular: Regular Rate and S1/S2; Negative Murmur or Rub
Pulmonary: Clear and Symmetric; Negative Wheezes or Rales
Gastrointestinal: Soft, Non Tender, Non Distended and Normal Bowel Sounds
Skin: Warm and Dry; Negative Rash or Jaundice
Objective Data
Lab Data
Lab Results
11/10/23 06:15
11/09/23 06:13
Estimated Creat Clear > 125 ml/min 11/09/23 06:13
Lactic Acid Cancelled 11/03/23 17:45
Total Bilirubin 0.5 mg/dl (0.2-1.3) 11/04/23 05:23
AST 25 U/L (17-59) 11/04/23 05:23
ALT 35 U/L (0-50) 11/04/23 05:23
Alkaline Phosphatase 115 U/L (38-126) 11/04/23 05:23
Most recent labs reviewed.
Micro Results:
11/07/23 08:48 Tissue Culture - Final
Toe Streptococcus agalactiae
Gram Stain - Final
11/03/23 14:36 Blood Culture - Final
Blood/Venous No Growth - Final Report
11/03/23 14:36 Blood Culture - Final
Blood/Venous No Growth - Final Report
11/03/23 14:36 Wound Culture - Final
Foot - Right Streptococcus agalactiae
Gram Stain - Final
11/04/23 03:04 MRSA Screen - Final
Nose No Methicillin Resistant Staphylococcus aureus isolated.
--- NOTE | 2023-11-10 09:06 | PN.DE.MGMTRT ---
Insulin Management
- -
11/10/2023: Diabetes Management F/U:
63 year old male admitted with osteomyelitis of 5th metatarsal. PMH includes: Anemia, Diabetic Peripheral Neuropathy, ETOH use, Active smoker, 1/2PPD, marijuana use and T2DM, Was taking cinnamon caps for glucose management at home. On admission,
A1C was 10.0%, Cr 0.5, eGFR>60 on admission.
Pt POD#3 S/P Partial/proximal 5th ray amputation of right foot. Pt seen this morning, awake, A/O x3, sitting up in bed, offers no complaints.
His glucose at dinner time was 71 and NovoLog dose was reduced to 3 units, HS glucose remained stable at 105, FBG 199 this AM.
Will increase NovoLog to 5 units AC. Cont Lantus 12 units @ HS and Metformin 500mg BID,
Will cont to follow and make further adjustments as necessary.
Discussed post discharge diabetes care with pt, States he is going to his sister's house upon discharge.
Encouraged OP f/u through Resident clinic at the [facility] since he has no PCP.
Diabetes History
- -
Type of Diabetes: 2 requiring insulin
Pre-Admission Diabetes Regimen
Lab Results
Hemoglobin A1c 10.0 % (4.0-5.6) H 11/04/23 05:23
Insulin Pump Settings
IP Diabetes Regimen
11/09/23 11/09/23 11/09/23
11:46 16:54 21:33
POC Glucose 84 71 105 H
11/10/23
07:25
POC Glucose 199 H
Meal type: Dinner
Meal type: Lunch
Amount consumed: 100%
Amount consumed: 100%
Patient Education
--- NOTE | 2023-11-10 10:15 | WOUNDNOTE ---
L 2ND TOE (MEDIAL)
--- NOTE | 2023-11-10 10:15 | WOUNDNOTE ---
L PLANTAR FOOT (with photo flash)
--- NOTE | 2023-11-10 10:39 | WOUNDNOTE ---
[facility] RN note: Changed L foot/toe dressings. L 2nd toe ulcer appears healed with a dry callus. L plantar 1st and 5th MTH ulcers dry black callus appearance, no drainage, no surrounding erythema. Skin on L heel and sacrum intact. Kerlix wrap and Sriram
wrap covering R heel. Patient's heels off bed with pillow. Patient turns self in bed. Appetite good. Updated Dr. Wong via tiger text including L foot and L toe wound pics. Dr. Wong confirmed R foot dressing to remain intact (Dr. Wong to change
R foot dressing in his office). Patient aware to follow up at Dr. Wong's office in [address] Wong requesting adding honey gel or Silvadene cream to L foot wound care. Dr. Wong stated he plans to give patient a wedge shoe for R foot when he
sees him in his office and patient is to remain NWB RLE. Reminded patient NWB RLE. Instructed patient to minimal ambulation d/t L plantar foot ulcers. He is waiting for a walker to be delivered to his room prior to discharged as per NITISH Juares
(he's currently using a borrowed walker). Gave patient 2 tubes of honey gel and instructed L foot and L toe wound care. Instructed hand hygiene with wound care. Patient stated he will have VN. Patient has wound care supplies. Updated NITISH Rojas.
Discharge instructions updated.
--- NOTE | 2023-11-10 11:48 | CM ---
Addendum entered by Crystal Cruz RN 11/10/23 14:20:
Walker delivered to room .Sister drove him home.
Original Note:
MD entered order for discharge.
VN set up for wound care Podiatry follow up ordered.
PT OT recommended VN
Pt lives with sister who assists as needed.
Spoke with sister Dannielle she up PCP for 11/16/23 with [facility] multiplex operator. [phone].
Sister will drive him home she needs to work at 3:30 [place] .
CM set up walker with [employer] it is to be delivered to room today as per Nathalie Lozada.
[id number]
PLAN Home with VN
[2023-11-10 12:27] LABS: Glucose - Point of Care 122 mg/dl (70-99)
[2023-11-10] MEDS: NOVOLOG FLEXPEN-LOW RESISTANCE SC (12:49)
[2023-11-10] MEDS: NOVOLOG FLEXPEN 5 UNITS SC (12:50)
--- NOTE | 2023-11-10 13:56 | W.PN.HOSP.TC ---
Today's Communication/Plan
-
d/c planning
Assessment / Plan
Assessment / Plan
# Diabetic foot infection with ulceration over the lateral/plantar aspect of head of fifth metatarsal with underlying osteomyelitis
-blood cultures: NGTD, mrsa neg - stop vanco
-wound culture, strep agalactiae
-s/p Partial/proximal fifth ray amputation, right foot�
-arterial US/ JORGITO: WNL b/l - no need for vascular to follow inpatient - confirmed by Dr. De Dios
-NWB right foot - PT evaluated
-Wedge surgical shoe to bedside.
-finish course of 5 days oral Augmentin at discharge.
# Likely untreated diabetes
#Diabetic neuropathy
-Check A1c - 10.0
-Lantus 12, NovoLog 7U premeal, metformin 500mg
-Patient not willing to take insulin - rediscussed need and willing to take Night time long acting insulin
-Discharging on compromise regimen of metformin/glimepiride/lantus - will need to f/u with PCP for conitnual discussion.
#Thrombocytosis
Most likely acute phase reactant secondary to acute infection
Continue to monitor with resuscitation
#Presumably chronic anemia
-Hemoglobin 11.9, no baseline
#Active smoker
-Nicotine patch started
-educated on cessation
#Hyponatremia
-minimal
Essential Hypertension
-start enalapril in setting of htn and DM
Marijuana use
Full code
DVT prophylaxis�heparin
More than 30 minutes spent in discharge including
Final examination of the patient
Summarizing hospital stay
Instructions for continuing care to all relevant caregivers
Preparation of discharge records, prescriptions, and referral forms
Total time spent (in minutes): 38 mins
Anticipated Discharge: Today
Subjective/Interval History
-
Date of Service: November 10, 2023
no issues overnight
comfortable in bed
Objective Data
-
Labs:
Laboratory Results
11/10/23
06:15
WBC 11.7 H
Hgb 11.6 L
Hct 34.9 L
Plt Count 503 H
Vital Signs:
Vital Signs
Temp Pulse Resp BP Pulse Ox
98.1 F 67 18 152/79 97
11/10/23 07:00 11/10/23 08:16 11/10/23 07:00 11/10/23 08:16 11/10/23 07:00
I&O
11/09/23 11/10/23 11/11/23
06:59 06:59 06:59
Intake Total 2220 / 2220 1680 / 1680
Output Total 2700 / 2700 1860 / 1860
Balance -480 / -480 -180 / -180
Review of Systems
-
Respiratory: Reports No Symptoms
Cardiac: Reports No Symptoms
Abdomen/GI: Reports No Symptoms
Physical Exam
-
General: Negative Appears in Distress
HEENT: Negative Oxygen
Respiratory: Clear to Auscultation
Musculoskeletal: Other (Right leg shantanu wrapping/dressing in place)
Neuro: Awake, Alert and Oriented
--- NOTE | 2023-11-10 15:17 | PTCARENOTE ---
Pt discharged. Pt on new Insulin and Accuchecks. DM educator explained and went over and educated pt about the disease and how to inject Insulin per pt. Pt Asked me to review d/c instructions with sister who is picking him up, as he lives with her
and she helps him with daily needs. I spoke with her over phone and she did not want to come to the floor. I attempted to review and explain the instructions to her but she interrupted me and said that it's ok and she will read later as she has to
get to work soon. I slightly reviewed with pt about his Insulin and meds and I explained that they need to get picked up at the [facility] pharmacy and he told me that he uses [facility] now due to insurance reasons. WC and sister was hear downstairs
waiting for pt. I called sister to see what [facility] as pt was not sure what [facility] location, however she did not picking belt operator so I left a message oh her voicemail. Awaiting call back.
--- NOTE | 2023-11-12 07:42 | W.DCSUMMARY ---
Discharge Summary
Discharge Data
Date of Admission: 11/03/23
Date of Discharge: 11/10/23
-
Pending Results: No
Hospital Course
Discharging Physician : Dr Donovan Streeter
Disposition : Home with HH
Primary care physician : Unknown
Principal Discharge diagnosis :
Diabetic foot infection and osteomyelitis of the fifth metatarsal/phalangeal bone
Uncontrolled diabetes mellitus
Diabetic neuropathy
Thrombocytosis
Chronic Discharge diagnosis :
Presume anemia of chronic disease
Tobacco use disorder
Essential hypertension
Marijuana use
Hospital Course :
Patient is a 63-year-old male with above-mentioned past medical history came to ER for having worsening right foot wound. Patient had a blister few days before which opened up followe by foul odor and redness from the wound. Patient did not have
any fever or chills. Evaluation in ER showing patient having infected diabetic foot wound on dorsal surface of fifth metatarsal phalangeal joint area. Blood culture and wound cultures were collected and patient was started on empiric antibiotics.
Podiatry and infectious disease physicians were involved in care. Lower extremity arterial ultrasound showed no significant vascular disease. Lower extremity MRI showing osteomyelitis with underlying bone of fourth metatarsal and proximal margins
of fifth phalanx. Podiatry recommended patient to undergo amputation after discussion patient underwent an uneventful partial proximal fifth ray amputation. Postprocedure course remained uncomplicated. A clean margin was noted intraoperatively
and post discharge patient was switched to total 5 days of oral Augmentin therapy.
Of note patient also on diabetes with hemoglobin A1c of 10. Diabetes nurse petitioner was involved in care and patient required Lantus and Premeal insulin. Patient not willing to take insulin injection and after discussion willing to take
nighttime long-acting insulin only. Patient being discharged on regimen of Lantus/glipizide/metformin. Patient does not have any primary care physician and provided contact number of family physician clinic to follow-up.
Important imaging findings :
MRI right foot
Bony destruction involving the distal aspect of the fifth metatarsal bone and the proximal margin of the proximal phalanx of the right fifth toe, findings compatible with osteomyelitis.
There is also abnormal enhancing intermediate T1-weighted signal extending to the level of the proximal fifth metatarsal shaft, suspicious for osteomyelitis.
There is abnormal signal and enhancement involving the marrow of the proximal, middle, and distal phalanges of the right fifth toe, suspicious for osteoarthritis.
There is nonenhancing intermediate T1-weighted signal within the soft tissues dorsal to the fifth and fourth metatarsal bones and also surrounding the right fifth toe. This would suggest a devitalized collection within the soft tissues, and could
represent infected collection. This appears to communicate with the open dorsal wound.
�
Procedure findings :
None
Discharge Plan
-
Patient Disposition: Home with Home Care
Discharge Diagnosis/Procedures: Right foot diabetic infection, 5th toe amputation
Condition: Fair
Diet: Diabetic, Carb Controlled
Activity: Do not bear weight R leg
Driving Restrictions: No driving
Bathing Restrictions: After dressing removed
Other Services: VN and PT
Activity Restrictions/Additional Instructions:
Wound Care Instructions
R foot dressing-keep intact. Dr. Wong to change dressing in his office.
L plantar foot and L 2nd toe wound care-clean with saline, honey gel, cover with dry gauze dressings daily.
Nust remain NWB on the right foot.
Follow up with relationship mgr Dr. Juan Wong.
Referrals:
Juan Wong, DPM [Specified Professional Personl] - in one week
NONE,* [Family Provider] -
Prescriptions:
New
metformin 500 mg Tablet
500 mg PO BID@0800,1700 Qty: 60 2RF
enalapril maleate 5 mg Tablet
5 mg PO DAILY Qty: 30 2RF
oxycodone 5 mg Tablet
5 mg PO Q4HPRN PRN (Reason: moderate pain) Qty: 14 0RF
glipizide 5 mg tablet
5 mg PO DAILY Qty: 30 0RF
insulin glargine [Basaglar KwikPen U-100 Insulin] 100 unit/mL (3 mL) insulin pen
12 unit SC QPM Qty: 15 0RF
(DME) blood-glucose meter [Contour Next One Meter] Misc
Qty: 1 0RF
Rx Instructions:
As Directed
(DME) Contour Next Test Strips Strip
Qty: 100 0RF
Rx Instructions:
AC and HS
(DME) pen needle, diabetic [BD Ultra-Fine Michelle Pen Needle] 32 gauge x ' Needle
Qty: 200 0RF
Rx Instructions:
HS
amoxicillin-pot clavulanate 875-125 mg tablet
1 tab PO BID Qty: 10 0RF
Continued
therapeutic multivitamin Tablet
1 tab PO HS
aspirin 500 mg Tablet
500 mg PO HS
aspirin 500 mg Tablet
1,000 mg PO HSPRN PRN (Reason: severe pain)
Clear Eyes
2 drp BOTH EYES BIDPRN PRN (Reason: dry eyes)
Joint Supplement
1 tab PO HS
Megared Supplement
1 cap PO HS
gjbvbpf-pshtcrdee-aqhi
3 tab PO HS
zinc
1 tab PO HS
Discharge Orders:
Discharge Patient (As Directed); Ordered 11/10/23
Ordered By: Donovan Streeter
Discharge Date and Time
Discharge Date/Time: 11/10/23 14:16
== END 2023-11-10 14:16 | disposition home health service (06) | DRG 617 ==
LOC: 4 EAST ACU 16:49
PROVIDERS: Emergency Medicine; Internal Medicine; Physician Assistant; ADMITTING PHYSICIAN Hospitalist; ATTENDING PHYSICIAN Hospitalist; CONSULT PHYSICIAN Podiatrist Foot & Ankle Surgery; EMERGENCY PHYSICIAN Emergency Medicine; OTHER PHYSICIAN Student in an Organized Health Care Education/Training Program
PROC: 0Y6M0ZF Detachment at Right Foot, Partial 5th Ray, Open Approach (ICD-10-PCS; 2023-11-07)
DX: E11.628 Type 2 diabetes mellitus with other skin complications (principal); E11.52 Type 2 diabetes mellitus with diabetic peripheral angiopathy with gangrene; E87.1 Hypo-osmolality and hyponatremia; M86.171 Other acute osteomyelitis, right ankle and foot; I96 Gangrene, not elsewhere classified; L97.414 Non-pressure chronic ulcer of right heel and midfoot with necrosis of bone; L97.514 Non-pressure chronic ulcer of other part of right foot with necrosis of bone; F17.200 Nicotine dependence, unspecified, uncomplicated; D64.9 Anemia, unspecified; F12.90 Cannabis use, unspecified, uncomplicated; F10.90 Alcohol use, unspecified, uncomplicated; E11.621 Type 2 diabetes mellitus with foot ulcer; E11.65 Type 2 diabetes mellitus with hyperglycemia; E11.42 Type 2 diabetes mellitus with diabetic polyneuropathy; E11.69 Type 2 diabetes mellitus with other specified complication; B95.4 Other streptococcus as the cause of diseases classified elsewhere; I10 Essential (primary) hypertension; D75.839 Thrombocytosis, unspecified; Z91.199 Patient's noncompliance with other medical treatment and regimen due to unspecified reason; Z59.7 Insufficient social insurance and welfare support
CPT/HCPCS: 88304; 88311; 73620; 73630; 73720; 80048; 80053; 82962; 83036; 83605; 85025; 85027; 87040; 87045; 87046; 87070; 87077; 87147; 87176; 87205; 87324; 87427; 87449; 93922; 93925; 96365; 96366; 97116; 97162; 97166; 97530; 97535; 99284; 99406; A9575

== ENCOUNTER 2024-07-26 20:42 | Inpatient (IN) | payer BC, SELFPAY ==
[2024-07-26 15:58] VITALS: BP 144/72
--- NOTE | 2024-07-26 16:02 | ED.GENMED ---
ED Provider Triage
<Roberto Maher PA-C - Last Filed: 07/26/24 16:03>
-
Patient seen by provider in Triage?: Seen in Triage
63-year-old male insulin-dependent diabetic presents with worsening cellulitis of left foot. Sent in by podiatry for workup including labs x-ray MRI. Plan was for IV antibiotic he denies fevers. He denies significant pain. He is not currently on
an antibiotic.
On exam patient is not stable. Vital signs are stable. He has a postoperative shoe on his left foot with some drainage noted through the sock in the midportion of the toes. I reviewed calling information from the patient's gas specialist and
initiated workup with CBC CMP and x-ray of the left foot.
Patient received medical screening examination by healthcare provider in triage.
History of Present Illness
<Roberto Maher PA-C - Last Filed: 07/26/24 16:03>
General
Chief Complaint: Skin Problem
Time Seen by Provider: 07/26/24 16:44
<April Sommers PA-C - Last Filed: 07/26/24 21:13>
General
Source: patient
Exam Limitations: none
Nursing documentation reviewed up to this point in time: agreed with
History of Present Illness
History of Present Illness:
63-year-old male past medical history diabetes presents emergency department today with concerns of infection to his left third toe. Patient was sent to the emergency department by Dr. Wong his gas specialist. Patient has a history of toe
amputations right foot in the past, he has had recurrent diabetic foot infections. Patient was getting his wounds dressed today by his gas specialist who sent him to the emergency department for IV antibiotics. Dr. Wong is concerned about possible
osteomyelitis. Patient denies any fevers or chills. Patient denies any pain with ambulation or any difficulties with ambulation. Patient denies any nausea or vomiting, abdominal pain, chest pain or shortness of breath.
Review of Systems
<April Sommers PA-C - Last Filed: 07/26/24 21:13>
Review of Systems
All Other Systems: ROS reviewed and negative except as documented in HPI and ROS
Phy Exam
<April Sommers PA-C - Last Filed: 07/26/24 21:13>
Physical Exam
Physical Exam:
General: Patient is well appearing and in no acute distress; non-toxic
Skin: 1 cm ulcerated lesion noted to the tip of the third digit of the left foot, with purulent drainage and surrounding soft tissue swelling and erythema
Head: Normocephalic, atraumatic
Eyes: Sclera non-icteric. EOMs intact.
Cardiac: Regular rate and rhythm, no murmurs
Pulm: Normal respiratory effort
Musculoskeletal: No palpable bony deformities
Neuro: CN II-XII intact, no focal neurologic deficits.
Psychiatric: Appropriate mood and affect.
Course
<Roberto Maher PA-C - Last Filed: 07/26/24 16:03>
Orders/Labs/Results
Orders:
Orders
07/26/24 Dinner
1800 calorie (15 carb) Diabetic
At Your Request: Full Participation
Does patient need a safe tray?: No
07/26/24 16:00
CR Foot - Left Min 3 Views Urgent
Comment:
Reason For Exam: infection
07/26/24 16:13
C-Reactive Protein Urgent
Comment: ADD ON
Complete Blood Count/With Diff Urgent
Comprehensive Metabolic Panel Urgent
Erythrocyte Sed Rate Urgent
Comment: ADD ON
07/26/24 17:18
Add On- LAB Urgent
Tests Added?: esr, crp
07/26/24 18:04
Piperacillin/Tazo 3.375 Gram [Zosyn] 3.375 gram in 50 ml IV NOW
07/26/24 18:30
Blood Culture Q30M
NAYELI Source: Blood/Venous
Specimen Description:
Blood Culture Q30M
NAYELI Source: Blood/Venous
Specimen Description:
07/26/24 18:35
Admit/Transfer Patient As Directed
Co-Sign Provider:
Level of Care: Inpatient admission
Assign to:: Medical/Surgical
Physician / Group: rowan powell
Diagnosis: diabetic osteo l 2nd,3rd toe
Reason for Hospitalization: diabetic osteo l 2nd,3rd toe
Expected length of stay greater than two midnights?: Yes
ELOS- Estimated Length of Stay in days: 4
I certify the patient meets the requirements for IP care: Yes
Code Status As Directed
Resuscitation Status: Full Code
07/26/24 18:40
PRN Pain Medication Management As Directed
May give lesser potent ordered pain med per pt: Yes
preference::
Protocol:: Medication orders for pain may be administered in a
manner that supports deferring to patient preference
when the pt is:
- Requesting an ordered lesser potent pain medication.
Least to most potent pain medications are defined
as: acetaminophen < NSAID < tramadol < opioids
(morphine, oxycodone, hydromorphone).
- Requesting a lesser dose of the same medication IF
ORDERED.
- Requesting a less intrusive route of administration
if both routes are prescribed by the provider (PO <
IV).
07/26/24 19:03
PODIATRY CONSULT Routine
Consulting Provider: Juan Wong
Was physician already notified: Yes
Reason for consult: left foot 2nd 3rd toe osteo
07/26/24 19:04
INFECTIOUS DISEASE CONSULT Routine
Consulting Provider: Houston Gonzales
Was physician already notified: Yes
Reason for consult: left foot 2nd 3rd toe osteo
07/26/24 19:16
Vancomycin [Vancocin] 1,500 mg 0.9% Sodium Chloride 500 ml [Nss] 500 ml IV NOW
07/26/24 20:43
Acetaminophen [Tylenol] 650 mg PO Q4HPRN PRN
Dextrose 50%-Water [Dextrose 50% Syringe] 12.5 grams IV Q53PSPT PRN
Glucagon [GlucaGen] 1 mg IM PRN PRN
07/26/24 20:43
Activity As Directed
Activity Level: As Tolerated
Bedside Glucose Monitoring As Directed
Frequency: AC&HS
Additional Instructions:: Change to q6h if pt on TPN, tube feeding or not eating
Pneumatic Compression Sleeves As Directed
Type: Knee high
Comment: right foot only
Vital Signs As Directed
Frequency: Per unit guidelines
Ot Eval And Treat Routine
Pt Eval And Treat Routine
Activity Level: As Tolerated
DX Deep Vein Thrombosis Video Routine
07/27/24 02:00
Piperacillin/Tazo 3.375 Gram [Zosyn] 3.375 gram in 50 ml IV Q6H
07/27/24 06:00
Complete Blood Count/With Diff IN AM
Comprehensive Metabolic Panel IN AM
Glycohemoglobin (HgbA1c) IN AM
Low Ext No Joint, Left W/O and With MR [MR Ltle No Joint W/o And With] IN AM
Comment:
Reason For Exam: left 2nd 3rd toe osetomyelitis
OK for patient to be off Cardiac Monitoring for MRI: Yes
Recent pill cam endoscopy?: No
Pacemaker/Defibrillator?: No
07/27/24 07:30
Insulin Aspart Corrective Low [Novolog Flexpen-Low Resistance] See Protocol SC AC
07/27/24 08:00
Enalapril [Vasotec] 5 mg PO DAILY
07/28/24 06:00
Complete Blood Count/With Diff IN AM
Comprehensive Metabolic Panel IN AM
07/29/24 06:00
Complete Blood Count/With Diff IN AM
Comprehensive Metabolic Panel IN AM
Abnormal Lab Results
07/26/24
16:13
WBC 11.2 H 10^3/uL
(4.8-10.8)
RBC 3.90 L 10^6/uL
(4.70-6.10)
Hgb 11.6 L g/dL
(13.0-18.0)
Hct 33.6 L %
(39.0-52.0)
Abs Immat Gran (auto) 0.1 H 10^3/uL
(0-0.05)
Absolute Neuts (auto) 7.3 H 10^3/uL
(1.4-6.5)
Absolute Monos (auto) 0.9 H 10^3/uL
(0.1-0.6)
Lymphocytes % 19.7 L %
(20.5-51.1)
Eosinophils % 6.4 H %
(0-6)
ESR 42 H mm/hour
(0-20)
Creatinine 0.6 L mg/dL
(0.7-1.3)
Glucose 121 H mg/dl
(70-99)
C-Reactive Protein 135.40 H mg/L
(0.0-10.00)
07/26/24 16:13
07/26/24 16:13
Vital Signs
Initial and Last Documented VS:
Initial Vital Signs
Temp Pulse Resp BP Pulse Ox
99.6 F 89 16 144/72 100
07/26/24 15:58 07/26/24 15:58 07/26/24 15:58 07/26/24 15:58 07/26/24 15:58
Last Documented Vital Signs
Temp Pulse Resp BP Pulse Ox
98.3 F 84 18 159/86 98
07/26/24 20:43 07/26/24 20:43 07/26/24 20:43 07/26/24 20:43 07/26/24 20:43
<April Sommers PA-C - Last Filed: 07/26/24 21:13>
Orders/Labs/Results
Orders:
Orders
07/26/24 Dinner
1800 calorie (15 carb) Diabetic
At Your Request: Full Participation
Does patient need a safe tray?: No
07/26/24 16:00
CR Foot - Left Min 3 Views Urgent
Comment:
Reason For Exam: infection
07/26/24 16:13
C-Reactive Protein Urgent
Comment: ADD ON
Complete Blood Count/With Diff Urgent
Comprehensive Metabolic Panel Urgent
Erythrocyte Sed Rate Urgent
Comment: ADD ON
07/26/24 17:18
Add On- LAB Urgent
Tests Added?: esr, crp
07/26/24 18:04
Piperacillin/Tazo 3.375 Gram [Zosyn] 3.375 gram in 50 ml IV NOW
07/26/24 18:30
Blood Culture Q30M
NAYELI Source: Blood/Venous
Specimen Description:
Blood Culture Q30M
NAYELI Source: Blood/Venous
Specimen Description:
07/26/24 18:35
Admit/Transfer Patient As Directed
Co-Sign Provider:
Level of Care: Inpatient admission
Assign to:: Medical/Surgical
Physician / Group: rowan powell
Diagnosis: diabetic osteo l 2nd,3rd toe
Reason for Hospitalization: diabetic osteo l 2nd,3rd toe
Expected length of stay greater than two midnights?: Yes
ELOS- Estimated Length of Stay in days: 4
I certify the patient meets the requirements for IP care: Yes
Code Status As Directed
Resuscitation Status: Full Code
07/26/24 18:40
PRN Pain Medication Management As Directed
May give lesser potent ordered pain med per pt: Yes
preference::
Protocol:: Medication orders for pain may be administered in a
manner that supports deferring to patient preference
when the pt is:
- Requesting an ordered lesser potent pain medication.
Least to most potent pain medications are defined
as: acetaminophen < NSAID < tramadol < opioids
(morphine, oxycodone, hydromorphone).
- Requesting a lesser dose of the same medication IF
ORDERED.
- Requesting a less intrusive route of administration
if both routes are prescribed by the provider (PO <
IV).
07/26/24 19:03
PODIATRY CONSULT Routine
Consulting Provider: Juan Wong
Was physician already notified: Yes
Reason for consult: left foot 2nd 3rd toe osteo
07/26/24 19:04
INFECTIOUS DISEASE CONSULT Routine
Consulting Provider: Houston Gonzales
Was physician already notified: Yes
Reason for consult: left foot 2nd 3rd toe osteo
07/26/24 19:16
Vancomycin [Vancocin] 1,500 mg 0.9% Sodium Chloride 500 ml [Nss] 500 ml IV NOW
07/26/24 20:43
Acetaminophen [Tylenol] 650 mg PO Q4HPRN PRN
Dextrose 50%-Water [Dextrose 50% Syringe] 12.5 grams IV [id number] PRN
Glucagon [GlucaGen] 1 mg IM PRN PRN
07/26/24 20:43
Activity As Directed
Activity Level: As Tolerated
Bedside Glucose Monitoring As Directed
Frequency: AC&HS
Additional Instructions:: Change to q6h if pt on TPN, tube feeding or not eating
Pneumatic Compression Sleeves As Directed
Type: Knee high
Comment: right foot only
Vital Signs As Directed
Frequency: Per unit guidelines
Ot Eval And Treat Routine
Pt Eval And Treat Routine
Activity Level: As Tolerated
DX Deep Vein Thrombosis Video Routine
07/27/24 02:00
Piperacillin/Tazo 3.375 Gram [Zosyn] 3.375 gram in 50 ml IV Q6H
07/27/24 06:00
Complete Blood Count/With Diff IN AM
Comprehensive Metabolic Panel IN AM
Glycohemoglobin (HgbA1c) IN AM
Low Ext No Joint, Left W/O and With MR [MR Ltle No Joint W/o And With] IN AM
Comment:
Reason For Exam: left 2nd 3rd toe osetomyelitis
OK for patient to be off Cardiac Monitoring for MRI: Yes
Recent pill cam endoscopy?: No
Pacemaker/Defibrillator?: No
07/27/24 07:30
Insulin Aspart Corrective Low [Novolog Flexpen-Low Resistance] See Protocol SC AC
07/27/24 08:00
Enalapril [Vasotec] 5 mg PO DAILY
07/28/24 06:00
Complete Blood Count/With Diff IN AM
Comprehensive Metabolic Panel IN AM
07/29/24 06:00
Complete Blood Count/With Diff IN AM
Comprehensive Metabolic Panel IN AM
Abnormal Lab Results
07/26/24
16:13
WBC 11.2 H 10^3/uL
(4.8-10.8)
RBC 3.90 L 10^6/uL
(4.70-6.10)
Hgb 11.6 L g/dL
(13.0-18.0)
Hct 33.6 L %
(39.0-52.0)
Abs Immat Gran (auto) 0.1 H 10^3/uL
(0-0.05)
Absolute Neuts (auto) 7.3 H 10^3/uL
(1.4-6.5)
Absolute Monos (auto) 0.9 H 10^3/uL
(0.1-0.6)
Lymphocytes % 19.7 L %
(20.5-51.1)
Eosinophils % 6.4 H %
(0-6)
ESR 42 H mm/hour
(0-20)
Creatinine 0.6 L mg/dL
(0.7-1.3)
Glucose 121 H mg/dl
(70-99)
C-Reactive Protein 135.40 H mg/L
(0.0-10.00)
07/26/24 16:13
07/26/24 16:13
Vital Signs
Initial and Last Documented VS:
Initial Vital Signs
Temp Pulse Resp BP Pulse Ox
99.6 F 89 16 144/72 100
07/26/24 15:58 07/26/24 15:58 07/26/24 15:58 07/26/24 15:58 07/26/24 15:58
Last Documented Vital Signs
Temp Pulse Resp BP Pulse Ox
98.3 F 84 18 159/86 98
07/26/24 20:43 07/26/24 20:43 07/26/24 20:43 07/26/24 20:43 07/26/24 20:43
Varinderlt;April Sommers PA-C - Last Filed: 07/26/24 21:13>
MDM/Problems Addressed
Differential Diagnosis Includes:
See below
MDM/Problems Addressed:
NUMBER AND COMPLEXITY OF PROBLEMS ADDRESSED AT THE ENCOUNTER
� Chronic conditions affecting care: Diabetes mellitus, tobacco use
� Acute Exacerbation and/or Progression of Chronic Illness: Type 2 diabetes
� Differential Diagnosis includes: Differentials include osteomyelitis, cellulitis, diabetic ulcer
AMOUNT AND/OR COMPLEXITY OF DATA TO BE REVIEWED AND ANALYZED
� I performed an independent evaluation of and my interpretation is:
X-rays: Findings concerning for osteomyelitis
Laboratory Studies: Mild leukocytosis noted, elevated CRP
Other:
� Review of other/old records: Reviewed discharge summary from 11/12/2023, reviewed discharge summary from this time where patient was seen for diabetic foot wound and osteomyelitis on the opposite foot,
� Further testing considered but not performed: MRI
RISK OF COMPLICATIONS AND/OR MORBIDITY OR MORTALITY OF PATIENT MANAGEMENT
� Social determinants of health affecting care: N/A
� Discussion with other providers: ER attending
� Escalation of care including admission/observation vs risk of discharge considered: 63-year-old male with past medical history of diabetes presents emergency department today with concerns of a persistent diabetic foot wound failing outpatient
antibiotic therapy. He was sent in from by his gas specialist for IV antibiotics. He x-ray which was concerning for osteomyelitis. Will start vancomycin and Zosyn and refer for admission, patient accepted by hospitalist
<April Sommers PA-C - Last Filed: 07/26/24 21:13>
*Critical Care Note
Total Time (30-74mins, 75-104mins- exclusive of procedures): Not Applicable
ED Attending Note
<Roberto Maher PA-C - Last Filed: 07/26/24 16:03>
-
Portions of this chart may have been created with voice recognition software.� Occasional wrong word or��sound alike� substitutions may have occurred due to the inherent limitations of voice recognition software.
Discharge Plan
Departure
Patient Disposition: Admit
Date of Disposition: 07/26/24
Time of Disposition: 18:04
Admit to: Med/Surg
Presentation/result/management discussed w/ accepting MD/DO: Hospitalist
Condition: Fair
Discharge Problem:
Diabetic foot infection, Osteomyelitis
Interventions
Interventions:
*Risk Screen - Suicide Last Done: 07/26/24 15:58
*General Assessment Last Done: 07/26/24 17:02
*Neglect/Abuse Screening Last Done: 07/26/24 15:58
ED- Fall Risk Assessment Last Done: 07/26/24 19:10
*ED COVID-19 Vaccine History Last Done: 07/26/24 20:48
*Nursing Disposition Last Done: 07/26/24 20:33
ED-Skin Assessment Last Done: 07/26/24 19:10
Discharge Date and Time
Discharge Date/Time: 07/26/24 20:34
[2024-07-26 16:42] LABS: % Basophils 0.2 % (0-2); % Eosinophils 6.4 % (0-6); % Immature Granulocytes 0.4 % (0-0.5); % Lymphocytes 19.7 % (20.5-51.1); % Monocytes 7.7 % (1.7-9.3); % Neutrophils 65.6 % (42.2-75.2); Absolute Eosinophils 0.7 10^3/uL (0-0.7); Absolute Immature Granulocytes 0.1 10^3/uL (0-0.05); Absolute Lymphocytes 2.2 10^3/uL (1.2-3.4); Absolute Monocytes 0.9 10^3/uL (0.1-0.6); Absolute Neutrophils 7.3 10^3/uL (1.4-6.5); Hematocrit 33.6 % (39.0-52.0); Hemoglobin 11.6 g/dL (13.0-18.0); Mean Corp Hgb Conc. 34.5 g/dL (33.0-37.0); Mean Corpuscular Hgb 29.7 pg (27.0-31.0); Mean Corpuscular Volume 86.2 fL (80.0-94.0); Mean Platelet Volume 8.9 fL (7.4-10.4); Nucleated Red Blood Cells % 0 % (-); Platelet Count 365 10^3/uL (130-400); Red Cell Dist. Width 13.2 % (11.5-14.5); White Blood Cell Count 11.2 10^3/uL (4.8-10.8)
[2024-07-26 16:51] LABS: ALT (SGPT) 21 U/L (0-50); AST (SGOT) 22 U/L (17-59); Albumin 3.7 g/dl (3.5-5.0); Alkaline Phosphatase 58 U/L (38-126); Blood Urea Nitrogen 17 mg/dl (9-20); Calcium 8.8 mg/dl (8.4-10.2); Carbon Dioxide 26 mmol/L (22-30); Chloride 100 mmol/L (98-107); Glucose 121 mg/dl (70-99); Potassium 4.3 mmol/L (3.5-5.1); Sodium 138 mmol/L (135-145); Total Bilirubin 0.3 mg/dl (0.2-1.3); Total Protein 6.7 g/dl (6.3-8.2); eGFR > 60.00
[2024-07-26 18:06] LABS: Erythrocyte Sed Rate 42 mm/hour (0-20)
--- NOTE | 2024-07-26 18:11 | HPS.HSE ---
Family Physician
-
Family Physician: NOT KNOW UNKNOWN - PT DOES
Chief Complaint
-
Left third toe ulceration, swollen with erythema extending to dorsal foot, left fifth toe lateral aspect intentionally popped blister by patient
History of Present Illness
63-year-old male sent in by podiatry Dr. Wong in for worsening cellulitis of his left foot. The patient reports he has had a open area to the left third toe for several months with expanding swelling down the entire toe. He states he had a
blister to the right great lateral aspect of his toe that he popped with a random pin in his house. He believes the left third toe ulceration is caused by his toes rubbing together, however this is at the distal tip. 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 He is status post right foot diabetic infection with fifth metatarsal and proximal phalanx amputation October 2023. He reports he was seen by his PCP in April 2024 was taken off of his insulin due to an A1c of 7
and is currently on oral medication only.
He has past medical history DM2 with right foot diabetic ulcer lateral/plantar aspect fifth metatarsal underlying osteomyelitis October 2023, diabetic neuropathy, chronic anemia, active smoker, marijuana use, prior alcohol abuse.
Medical History
Past Medical History
Past Medical History: Reports Other
Additional Past Medical History:
DM2
Diabetic neuropathy
Nicotine abuse
Marijuana use
Previous alcohol abuse daily now drinks 2-3 beers 2 to 3 days a week
Osteomyelitis right fifth toe status post amputation October 2023
Past Surgical History: Reports Other
Additional Past Surgical History:
Osteomyelitis right fifth toe status post amputation October 2023
Social History
Tobacco: Smoker (1/2 pack/day)
Alcohol: Occasional (2-3 beers 2 to 3 days a week)
Drug: Marijuana (Several times a week)
Living: Alone
Employment: Employed (Employed nights at [employer])
Family History
Family History: Not pertinent
Allergies / Home Medications
Allergies reflects when Allergies were last updated in [facility].
Home Medications with original date entered in [facility]
Allergy/Medication List:
Allergies
Allergy/AdvReac Type Severity Reaction Status Date / Time
No Known Allergies Allergy Verified 07/26/24 16:02
Home Medications
Clear Eyes 2 drp BOTH EYES BIDPRN PRN dry eyes 11/03/23
Megared Supplement 1 cap PO HS Supplement 11/03/23
jkrtazn-[id number]-glvb 3 tab PO HS Supplement 11/03/23
therapeutic multivitamin 1 tab PO HS Supplement 11/03/23
zinc 1 tab PO HS Supplement 11/03/23
enalapril maleate 5 mg tablet 5 mg PO DAILY #30 tabs 11/08/23
metformin 500 mg tablet 500 mg PO BID@0800,1700 #60 tabs 11/08/23
glipizide 5 mg tablet 5 mg PO DAILY IDDM #30 tabs 11/09/23
garlic 100 mg tablet 100 mg PO HS 07/26/24
Review of Systems
-
History Source: Patient
A 12 point ROS was completed and negative except as noted: Yes
Constitutional: Denies Fever, Fatigue or Chills
EENT: Denies Sore Throat or Runny Nose
Respiratory: Denies Cough or Trouble Breathing
Cardiac: Denies Chest Pain, Diaphoresis, Palpitations or Syncope
Abdomen/GI: Denies Abdominal Pain, Nausea, Vomiting, Diarrhea, Constipated, Bloody Stools or Black Stools
: Denies Dysuria, Frequency, Flank Pain, Incontinence, Difficulty Voiding, Urgency or Bleeding
Musculoskeletal: Reports Joint Pain (Right third toe, right great toe)
Skin: Denies Itching or Rash
Neurological: Denies Dizzy, Headache or Weakness
Endocrine: Reports No Symptoms
Hematologic/Lymphatic: Reports No Symptoms
Psych: Reports Calm
Physical Exam
Vital Signs
Vital Signs
Temp Pulse Resp BP Pulse Ox
99.6 F 89 16 144/72 100
07/26/24 15:58 07/26/24 15:58 07/26/24 15:58 07/26/24 15:58 07/26/24 15:58
Physical Exam
General: Comfortable and Conversant; No Fever or Chills
HEENT: NormoCephalic, Anicteric, Moist mucous membranes, PERRLA, [place] Conjunctivae and No Ptosis
Respiratory: Clear; No Wheezes, Rales or Rhonchi
Cardiac: S1/S2 and Regular Rhythm; No Murmur, Rub, Gallop or Peripheral Edema
GI: Soft, Non Tender, Non Distended and No Hepatosplenomegaly
Rectal: Deferred by Provider
Genito-urinary: Deferred by me
Musculoskeletal: No Clubbing, No Cyanosis and Edema, Left Lower Extremity (Left third toe erythema with open ulceration distal tip spreading cellulitis to anterior foot, left lateral great toe with popped blister per patient); No Edema, Left Upper
Extremity, Edema, Right Upper Extremity or Edema, Right Lower Extremity
Skin: Warm and Dry; No Rash
Neuro: AO x 3, No Motor Deficits, Nonfocal/grossly intact, Cranial Nerves Intact and No Sensory Deficits; No Slurred Speech, Facial Droop, Tremors or Sedated
Psych: Calm
Laboratory Results
-
07/26/24 16:13
07/26/24 16:13
Laboratory Results
Total Bilirubin 0.3 mg/dl (0.2-1.3) 07/26/24 16:13
AST 22 U/L (17-59) 07/26/24 16:13
ALT 21 U/L (0-50) 07/26/24 16:13
Alkaline Phosphatase 58 U/L (38-126) 07/26/24 16:13
Impression/Plan
-
Impression/plan:
Admit to MedSurg
#Left diabetic foot cellulitis with third distal phalanx osteomyelitis questionable second toe osteomyelitis/left great toe lateral blister present
#Recent right fifth toe amputation secondary to diabetic RIGHT foot infection fifth metatarsal with proximal phalanx and osteomyelitis via MRI October 2023
WBC 11.2
-Consult Dr. Wong
-MRI left foot
-Blood cultures x 2
-IV vancomycin IV Zosyn
-Check CRP
Follow CBC, CMP
PT/OT/case management consult
Left foot x-ray:Mild hallux valgus deformity.
Mild first MTP joint osteoarthritis.
Findings concerning for osteomyelitis of the distal phalanges of the second and third digits as described above.
Soft tissue swelling of both digits
Mild dorsal midfoot osteoarthritis.
#DM 2/diabetic neuropathy
Accu-Cheks with SSI, check HgbA1c
Reported A1c in April was 7 and patient states he was taken off insulin by his PCP
#Chronic anemia
Hgb 11.6 appears baseline
Active smoker
Smokes 1/2 pack/day
-Cessation advised
Marijuana use
Uses several times a week
Former daily alcohol use
Drinks 2-3 beers 2 days a week now
DVT prophylaxis
We will currently hold on anticoagulation due to possible surgery/amputation toe
Full code
[2024-07-26 18:41] VITALS: BP 143/85
[2024-07-26 18:56] VITALS: BMI 27.3
--- NOTE | 2024-07-26 19:02 | W.PN.UPDATE ---
Update Note
Progress Note Update
This is an addendum to the H&P written by Kathrin Rowe on 07/26/2024.� Patient seen and examined independently with FINISH REPAIRER.
63-year-old male past medical history of diabetic foot infection, uncontrolled diabetes, diabetic neuropathy, anemia, tobacco use, hypertension, marijuana use, presenting with diabetic toe ulcer third toe and redness and discharge with blister of
left great toe.
Patient was recently admitted for diabetic foot infection the right fifth metatarsal/phalangeal bone.� Patient was treated with IV antibiotics and had MRI showing osteomyelitis.� Patient underwent proximal fifth ray amputation.
Foot x-ray shows osteomyelitis of the distal phalanges of the second and third digits left foot.� Check MRI of toes.� Check blood cultures.� Vancomycin/Zosyn.� Podiatry consulted.� ID consulted.
Patient not taking insulin anymore.� Hold oral diabetic medications and start insulin sliding scale.
[2024-07-26] MEDS: ZOSYN 50 IV (19:07)
[2024-07-26] MEDS: VANCOCIN 530 MG IV (19:30)
[2024-07-26 20:43] VITALS: BP 159/86; BMI 27.4
--- NOTE | 2024-07-26 21:00 | PTCARENOTE ---
Received patient from ED via stretcher. Patient ambulated from bed to stretcher independently. Diabetic wounds noted to L foot, redressed and wound consult added per protocol. AAOx3, oriented patient to room and placed call arzola within reach.
[2024-07-26 21:02] LABS: Glucose - Point of Care 101 mg/dl (70-99)
[2024-07-26] MEDS: VANCOCIN HCL 500 MG 100 IV (21:09)
--- NOTE | 2024-07-26 21:14 | PHA.VAN.IN ---
Assessment
- Assessment
Renal Function: Appears similar to baseline
Concomitant Antimicrobials: ZOSYN
- Previous Dosing Experience
Previous Regimen: 1250MG IV Q12H
Date of Regimen: 11/04/23
Provided Trough of: 12.6 PREDICTED
Provided AUC of: 498 PREDICTED
Patient's SCR is: Similar to previous dosing experience
Patient's weight is: Decreased compared to previous dosing experience (11/04/23 WT = 102 KG)
AUC Dosing Plan
- Dosing Variables
Dosing Weight (kg): 89.1
Dosing CrCl (ml/min): 100
Vd coefficient (L/kg): 0.7
- Empiric Dosing
Initial / Loading Dose: 2GM TOTAL
Maintenance Regimen: 1250MG IV Q12H
Estimated AUC (mcg*h/mL): 489
Estimated Peak (mcg*h/mL): 30.9
Estimated Trough (mcg/ml): 12.3
Estimated Half Life (H): 7.9
Pharmacokinetics Vancomycin I
- -
Patient Age: 63
Patient Sex: Male
Vancomycin Day #: 1
Indication: Bone And Joint (OM; DIABETIC FOOT )
Requesting Provider: MICKEY
Height / Weight:
Height 5 ft 11 in
Actual Weight 89.103 kg
Pertinent Past Medical History: PRIOR AMPUTATIONS
- Vital Signs / Lab Results
Temp Pulse Resp BP Pulse Ox
98.3 F 84 18 159/86 98
07/26/24 20:43 07/26/24 20:43 07/26/24 20:43 07/26/24 20:43 07/26/24 20:43
Lab Results - Hematology
07/26/24
16:13
WBC 11.2 H
Lab Results - Chemistry
07/26/24
16:13
BUN 17
Creatinine 0.6 L
Albumin 3.7
[2024-07-26 23:29] VITALS: BP 150/78
[2024-07-27] VITALS (11 sets, daily range): BP systolic 106–152; BP diastolic 69–86; PULSE 81–87
[2024-07-27] MEDS: ZOSYN 50 IV ×4 (02:52→21:37)
[2024-07-27] MEDS: VANCOCIN 275 MG IV ×2 (06:16→18:34)
--- NOTE | 2024-07-27 06:57 | W.PN.HOSP.TC ---
Addendum entered and electronically signed by Thomas Warner MD 07/27/24 16:18:
63-year-old male was sent to the hospital by bondactor machine operator for left third toe infection
I saw and evaluated the patient. I reviewed the resident�s note and agree with findings and plan as documented in the resident�s note except for changes in documentation
07/26/2024-x-ray of the left foot-emphysema the soft tissues possible bony destruction concerning for osteomyelitis
MRI of the left foot 07/27/2024-Osteomyelitis of the forefoot with greatest involvement of the third toe proximal, middle, and distal phalanges including septic arthritis of the third distal interphalangeal joint. Signal changes in the second middle
and distal phalanges and in the first distal phalanx, also suspicious for osteomyelitis.
On examination changes at the tip of the third toe on the left and also second toe small ulcer pulses felt dorsalis pedis
Cardiovascular system S1-S2 appreciated
Chest clear to auscultation
No pedal edema
# Osteomyelitis of the third toe possibly second and first changes also
May need amputations
Send over cultures and pathology
Vancomycin and Zosyn now
Infectious disease and podiatry evaluation
JORGITO/TBI in October 2023 was normal patient
Hemoglobin A1c 7.1
Patient needs to stop smoking
# Diabetes-continue glipizide 5 mg daily and metformin 500 mg twice daily along with sliding scale coverage
# Hypertension-continue lisinopril
# Active smoker-cessation counseling done
# DVT prophylaxis-XU
# Full code
Part of this note was created using voice recognition system. Occasional wrong word or��sound alike� substitutions may have inadvertently occurred due to the inherent limitations of voice recognition software. If noted kindly bring it to my
attention for correction.
Original Note:
Today's Communication/Plan
-
Assessment: 63 year old male with PMH of Diabetic foot infection, poorly controlled DM 2, tobacco, alcohol and marijuana abuse, who presented to the ED at the request of his bondactor machine operator with c/o third left third toe redness, discharge and ulceration.
Assessment/Plan
#Osteomyelitis of left foot confirmed on MRI foot 07/26/24
-Peripheral arterial US bilateral MIKE with JORGITO 11/04/2023 WNL.
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
-Blood cxs pending.
-Patient afebrile, WBC count normalized.
-Continue Zosyn and Vanco.
-NPO.
-Partial toe amputation later today per podiatry.
-Continues to smoke half pack daily; discussed at length about smoking cessation, patient adamant on smoking.
#Uncontrolled DM 2-History of diabetic neuropathy
-Recent A1C 7.1
-Accu-Cheks with SSI.
-Patient not willing to take insulin.
-Continue metformin and glipizide, may need metformin increased to 2 g daily on discharge.
-Nicotine patch.
#Alcohol use disorder.
-Drinks 2-3 beers on most days.
-Advised to cut down and quit drinking.
#Essential Hypertension
-Continue enalapril.
#Marijuana use
-Encouraged to quit smoking.
DVT PPx: Anticoagulation on hold for surgery.
CODE STATUS: Full code

Data
MR left foot 07/27/2024:
Osteomyelitis of the forefoot with greatest involvement of the third toe proximal, middle, and distal phalanges including septic arthritis of the third distal interphalangeal joint. Signal changes in the second middle and distal phalanges and in the
first distal phalanx, also suspicious for osteomyelitis.
Assessment / Plan
Assessment / Plan
Anticipated Discharge: 24 - 48 hours
Subjective/Interval History
-
Date of Service: July 27, 2024
I have seen and examined patient. Patient reports that he was asked to come to the hospital for an MRI and potential third left toe amputation by his bondactor machine operator. He does not have any chest pain, shortness of breath, palpitations, fever or chills.
His MRI was completed earlier this a.m. which is positive for osteomyelitis of the left third toe. His left foot is larger than the right, but has intact blood flow. He reports that he checks his blood sugar at home and has never been more than
129 mg/DL. His A1c is 7.1, he reports compliance with his metformin 500 mg twice daily and glipizide 5 mg once daily.
Objective Data
-
Labs:
Laboratory Results
07/27/24
06:00
WBC Pending
Hgb Pending
Hct Pending
Plt Count Pending
Sodium Pending
Potassium Pending
Chloride Pending
Carbon Dioxide Pending
BUN Pending
Creatinine Pending
Glucose Pending
Calcium Pending
Total Bilirubin Pending
AST Pending
ALT Pending
Alkaline Phosphatase Pending
Vital Signs:
Vital Signs
Temp Pulse Resp BP Pulse Ox
98.5 F 77 18 150/78 98
07/26/24 23:29 07/26/24 23:29 07/26/24 23:29 07/26/24 23:29 07/26/24 23:29
I&O
07/25/24 07/26/24 07/27/24
06:59 06:59 06:59
Intake Total 480 / 480
Balance 480 / 480
Review of Systems
-
History Source: Patient
All other systems: Not reviewed unless documented
Constitutional: Reports No Symptoms
EENT: Reports No Symptoms Reported
Respiratory: Reports No Symptoms
Cardiac: Reports No Symptoms
Abdomen/GI: Reports No Symptoms
Genitourinary: Reports No Symptoms
Skin: Reports No Symptoms and Skin Thickening (Left leg)
Physical Exam
-
General: Well Developed, Comfortable and Conversant; Negative Appears in Distress
HEENT: Normocephalic; Negative Oxygen
Respiratory: Clear to Auscultation
Cardiac: Regular Rhythm and S1/S2; Negative Murmur
GI: Soft, Nontender, Nondistended and Normal Bowel Sounds
Musculoskeletal: Edema, Left Lower Extrem and Other (Right leg shantanu wrapping/dressing in place)
Skin: Warm and Dry
Neuro: Awake, Alert and Oriented
Psych: Calm
Data Reviewed
-
MRI: Image personally visualized and interpreted, Report Reviewed by me, Discussed with Physician and Discussed with Patient
Labs: Labs Reviewed by me, Discussed with Physician and Discussed with Patient
Old Records: Reviewed
[2024-07-27 07:33] LABS: Glucose - Point of Care 101 mg/dl (70-99)
[2024-07-27 08:43] LABS: % Basophils 0.2 % (0-2); % Eosinophils 6.9 % (0-6); % Immature Granulocytes 0.2 % (0-0.5); % Lymphocytes 23.9 % (20.5-51.1); % Monocytes 8.5 % (1.7-9.3); % Neutrophils 60.3 % (42.2-75.2); Absolute Eosinophils 0.6 10^3/uL (0-0.7); Absolute Monocytes 0.7 10^3/uL (0.1-0.6); Absolute Neutrophils 5.1 10^3/uL (1.4-6.5); Hematocrit 39.2 % (39.0-52.0); Mean Corp Hgb Conc. 33.2 g/dL (33.0-37.0); Mean Corpuscular Hgb 29.3 pg (27.0-31.0); Mean Corpuscular Volume 88.5 fL (80.0-94.0); Nucleated Red Blood Cells % 0 % (-); Platelet Count 398 10^3/uL (130-400); Red Blood Cell Count 4.43 10^6/uL (4.70-6.10); Red Cell Dist. Width 13.1 % (11.5-14.5); White Blood Cell Count 8.4 10^3/uL (4.8-10.8)
[2024-07-27] MEDS: VASOTEC 5 MG PO (08:54)
[2024-07-27 09:23] LABS: ALT (SGPT) 21 U/L (0-50); AST (SGOT) 21 U/L (17-59); Albumin 3.7 g/dl (3.5-5.0); Alkaline Phosphatase 71 U/L (38-126); Blood Urea Nitrogen 12 mg/dl (9-20); Calcium 8.7 mg/dl (8.4-10.2); Carbon Dioxide 29 mmol/L (22-30); Chloride 101 mmol/L (98-107); Estimated Creatinine Clearance > 125 ml/min; Glucose 115 mg/dl (70-99); Potassium 4.2 mmol/L (3.5-5.1); Sodium 139 mmol/L (135-145); Total Bilirubin 0.5 mg/dl (0.2-1.3); Total Protein 6.9 g/dl (6.3-8.2); eGFR > 60.00
--- NOTE | 2024-07-27 09:28 | PHA.VAN.FU ---
Vancomycin Assessment / Plan
- Assessment
Renal Function: Stable
Concomitant Antimicrobials: piperacillin/tazobactam
- Dosing Plan
Continue: Vanc 1250mg Q12H
- Monitoring Plan
No level(s) ordered at this time: consider levels in next few days
- Follow Up
Pharmacy will continue to follow.
Vancomycin Follow UP
- -
Patient Age: 63
Patient Sex: Male
Vancomycin Day #: 2
Indication: Bone And Joint
Requesting Provider: Maria Isabel Rowe
Pertinent Antimicrobial Allergies:
NKDA
Height / Weight:
Height 5 ft 11 in
Actual Weight 89.103 kg
Pertinent Past Medical History: DM 2
- Vital Signs / Lab Results
Temp Pulse Resp BP Pulse Ox
98.2 F 77 18 143/86 97
07/27/24 08:09 07/27/24 08:09 07/27/24 08:09 07/27/24 08:09 07/27/24 08:09
Lab Results - Hematology
07/26/24 07/27/24
16:13 08:02
WBC 11.2 H 8.4
Lab Results - Chemistry
07/26/24 07/27/24
16:13 08:02
BUN 17 12
Creatinine 0.6 L 0.6 L
Estimated Creat Clear > 125
Albumin 3.7 3.7
--- NOTE | 2024-07-27 09:46 | PTOTSP ---
Pt is able to get OOB and ambulate independently without an assistive device. No acute PT needs were identified at this time. Will sign off.
[2024-07-27 10:29] LABS: Glycohemoglobin (HgbA1c) 7.1 % (4.0-5.6)
[2024-07-27 11:58] LABS: Glucose - Point of Care 135 mg/dl (70-99)
--- NOTE | 2024-07-27 13:14 | WOUNDNOTE ---
[facility] RN NOTE: Reviewed chart and met with patient. Patient has infected left 3rd toe that is dry and non-draining. Patient also has plantar callous that is managed by Dr. Wong monthly. TT pics to Dr. Wong of toe and plan is to keep toe NETTE for
now. Possible surgery for amputation of left toe today or tomorrow. [facility] updated. Will continue to follow peripherally.
--- NOTE | 2024-07-27 13:17 | WOUNDNOTE ---
LEFT 3rd TOE
--- NOTE | 2024-07-27 13:17 | WOUNDNOTE ---
LEFT GREAT TOE PLANTAR
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
[2024-07-27] MEDS: NICODERM TRANSDERMAL 7 MG TRANSDERM (14:05)
--- NOTE | 2024-07-27 14:48 | WOUNDNOTE ---
PLANTAR ASPECT OF THIRD LEFT TOE
[2024-07-27 17:46] LABS: Glucose - Point of Care 165 mg/dl (70-99)
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
--- NOTE | 2024-07-27 19:48 | PTCARENOTE ---
Patient NPO since today at 1245pm. Patient completed CHG wipes and new gown placed. Cook Enchilada at bedside and obtained consent. Kai rosario. SCDs placed on patient. Patient taken to OR for toe amputation.
--- NOTE | 2024-07-27 20:30 | W.PN.UPDATE ---
Update Note
Progress Note Update
Procedure: Partial amputation, left third toe under IV sedation.
Patient tolerated procedure and anesthesia well. Patient brought to the recovery room with vital signs stable and vascular status intact to the left LE.
Prognosis: good.
Specimen sent: 'Infected bone' to Path and Micro. 'Clean bone margin' to Path.
Orders:
-XRAYS, left foot
-Resume diet
-Weightbearing status: NWB on left foot for 24 hours.
[2024-07-27 20:58] LABS: Glucose - Point of Care 130 mg/dl (70-99)
[2024-07-27 21:41] LABS: Glucose - Point of Care 124 mg/dl (70-99)
--- NOTE | 2024-07-27 21:47 | PTCARENOTE ---
Patient received from PACU AAOx3, offers no complaints. Apical regular, edema noted to bilateral lower extremities. Lungs clear. Abdomen round with positive bowel sounds. #22 g in LFA flushed and patent. Left foot dressing clean dry and intact.
Educated patient on NWB status.
[2024-07-27] MEDS: TYLENOL 650 MG PO (22:41)
[2024-07-28 00:30] VITALS: BP 125/70
[2024-07-28] MEDS: HEPARIN 5000 UNITS SC ×2 (01:13→09:09)
[2024-07-28] MEDS: ZOSYN 50 IV ×2 (01:13→09:10)
[2024-07-28 03:25] VITALS: BP 120/62
[2024-07-28] MEDS: TYLENOL 650 MG PO ×2 (05:18→09:58)
[2024-07-28] MEDS: VANCOCIN 275 MG IV (05:19)
[2024-07-28 07:03] LABS: % Basophils 0.4 % (0-2); % Eosinophils 8.9 % (0-6); % Immature Granulocytes 0.4 % (0-0.5); % Monocytes 6.8 % (1.7-9.3); % Neutrophils 57.5 % (42.2-75.2); Absolute Eosinophils 0.6 10^3/uL (0-0.7); Absolute Lymphocytes 1.9 10^3/uL (1.2-3.4); Absolute Monocytes 0.5 10^3/uL (0.1-0.6); Absolute Neutrophils 4.1 10^3/uL (1.4-6.5); Hematocrit 34.8 % (39.0-52.0); Hemoglobin 12.1 g/dL (13.0-18.0); Mean Corp Hgb Conc. 34.8 g/dL (33.0-37.0); Mean Corpuscular Hgb 29.8 pg (27.0-31.0); Mean Corpuscular Volume 85.7 fL (80.0-94.0); Nucleated Red Blood Cells % 0 % (-); Platelet Count 346 10^3/uL (130-400); Red Blood Cell Count 4.06 10^6/uL (4.70-6.10); White Blood Cell Count 7.1 10^3/uL (4.8-10.8)
--- NOTE | 2024-07-28 07:08 | W.PN.HOSP.TC ---
Addendum entered and electronically signed by Thomas Warner MD 07/28/24 14:35:
I saw and evaluated the patient. I reviewed the resident�s note and agree with findings and plan as documented in the resident�s note .
Patient is feeling better status post surgery partial amputation of the left third toe 07/27/2024. Most likely surgical cure per podiatry
Pathology pending
Discussed with infectious disease-okay for a week of antibiotics
Smoking cessation advised
Continue antidiabetic medicines
Follow-up with podiatry as outpatient for pathology report and further wound check.
More than 30 minutes spent in discharge including
Final examination of the patient
Summarizing hospital stay
Instructions for continuing care to all relevant caregivers
Preparation of discharge records, prescriptions, and referral forms
Total time spent (in minutes): 33 min
Original Note:
Today's Communication/Plan
-
No weightbearing for 24 hours
Narrow antibiotics to Augmentin
Discharge planning.
Assessment / Plan
Assessment / Plan
Assessment: 63 year old male with PMH of Diabetic foot infection, poorly controlled DM 2, tobacco, alcohol and marijuana abuse, who presented to the ED at the request of his coldfusion with c/o third left third toe redness, discharge and ulceration.
Assessment/Plan
#Osteomyelitis involving all phalanges of left third toe confirmed on MRI left foot 07/27/24.
-S/p partial amputation left third toe 07/27/24; most likely surgical care per podiatry.
-Blood culture NGTD, awaiting bone culture results.
-No weightbearing for 24 hours by podiatry.
-Peripheral arterial US bilateral MIKE with JORGITO 11/04/2023 WNL; dorsalis pedis pulses intact.
-Narrow antibiotics to Augmentin per ID.
-ID appreciated.
-Smoking cessation encouraged.
#Left lower extremity cellulitis
-Resolved.
#Uncontrolled DM 2-History of diabetic neuropathy
-Recent A1C 7.1
-Accu-Cheks with SSI.
-Patient not willing to take insulin.
-Continue metformin and glipizide, may need metformin increased to 2 g daily on discharge.
-Nicotine patch.
#Alcohol use disorder.
-Drinks 2-3 beers on most days.
-Advised to cut down and quit drinking.
#Essential Hypertension
-Continue enalapril.
#Marijuana use
-Encouraged to quit smoking.
DVT PPx: Anticoagulation on hold for surgery.
CODE STATUS: Full code

Data
MR left foot 07/27/2024:
Osteomyelitis of the forefoot with greatest involvement of the third toe proximal, middle, and distal phalanges including septic arthritis of the third distal interphalangeal joint. Signal changes in the second middle and distal phalanges and in the
first distal phalanx, also suspicious for osteomyelitis.
07/26/2024 X-ray left foot: Mild subcutaneous emphysema in the soft tissues of the tip of the third digit. This extends to the distal phalanx which is decreased in size suggesting bony destruction. There is a lucency in the posterior base of the
distal phalanx of the second, seen best on the lateral view concerning for osteomyelitis. Please see full dictation for additional detail. Film personally viewed.
Anticipated Discharge: Today
Subjective/Interval History
-
Date of Service: July 28, 2024
I have seen and evaluated patient. Status post partial left toe amputation, patient is doing well, in no acute distress. He reports that his pain at surgical site is minimal, left leg dressing in place, decreased swelling and no erythema
appreciated.
Objective Data
-
Labs:
Laboratory Results
07/28/24
06:37
WBC 7.1
Hgb 12.1 L
Hct 34.8 L
Plt Count 346
Sodium Pending
Potassium Pending
Chloride Pending
Carbon Dioxide Pending
BUN Pending
Creatinine Pending
Glucose Pending
Calcium Pending
Total Bilirubin Pending
AST Pending
ALT Pending
Alkaline Phosphatase Pending
Vital Signs:
Vital Signs
Temp Pulse Resp BP Pulse Ox
97.8 F 60 18 120/62 96
07/28/24 03:25 07/28/24 03:25 07/28/24 03:25 07/28/24 03:25 07/28/24 03:25
I&O
07/27/24 07/28/24 07/29/24
06:59 06:59 06:59
Intake Total 480 / 480 1360 / 1360
Output Total 1300 / 1300
Balance 480 / 480 60 / 60
Review of Systems
-
History Source: Patient
All other systems: Not reviewed unless documented
Constitutional: Reports No Symptoms
EENT: Reports No Symptoms Reported
Respiratory: Reports No Symptoms
Cardiac: Reports No Symptoms
Abdomen/GI: Reports No Symptoms
Genitourinary: Reports No Symptoms
Skin: Reports No Symptoms and Skin Thickening (Left leg)
Physical Exam
-
General: Well Developed, Comfortable and Conversant; Negative Appears in Distress
HEENT: Normocephalic; Negative Oxygen
Respiratory: Clear to Auscultation
Cardiac: Regular Rhythm and S1/S2; Negative Murmur
GI: Soft, Nontender, Nondistended and Normal Bowel Sounds
Musculoskeletal: Edema, Left Lower Extrem and Other (Right leg shantanu wrapping/dressing in place)
Skin: Warm and Dry
Neuro: Awake, Alert and Oriented
Psych: Calm
Data Reviewed
-
Diagnostic Radiology: Image personally visualized and interpreted, Report Reviewed by me and Discussed with Physician
MRI: Image personally visualized and interpreted, Report Reviewed by me, Discussed with Physician and Discussed with Patient
Labs: Labs Reviewed by me, Discussed with Physician and Discussed with Patient
Old Records: Reviewed
[2024-07-28 07:25] VITALS: BP 149/82
[2024-07-28 07:29] LABS: ALT (SGPT) 20 U/L (0-50); AST (SGOT) 18 U/L (17-59); Albumin 3.4 g/dl (3.5-5.0); Alkaline Phosphatase 62 U/L (38-126); Blood Urea Nitrogen 11 mg/dl (9-20); Calcium 8.6 mg/dl (8.4-10.2); Carbon Dioxide 25 mmol/L (22-30); Chloride 104 mmol/L (98-107); Estimated Creatinine Clearance > 125 ml/min; Glucose 152 mg/dl (70-99); Potassium 4.4 mmol/L (3.5-5.1); Sodium 139 mmol/L (135-145); Total Bilirubin 0.4 mg/dl (0.2-1.3); Total Protein 6.4 g/dl (6.3-8.2); eGFR > 60.00
[2024-07-28 07:30] LABS: Glucose - Point of Care 144 mg/dl (70-99)
[2024-07-28] MEDS: NICODERM TRANSDERMAL TRANSDERM (09:09)
[2024-07-28] MEDS: VASOTEC 5 MG PO (09:10)
[2024-07-28] MEDS: FLUSH (NSS) 1 FLUSH IV (09:10)
--- NOTE | 2024-07-28 11:09 | PHA.VAN.FU ---
Vancomycin Assessment / Plan
- Assessment
Renal Function: Stable
WBC's are: WNL
In the past 24 hrs, patient has been: Afebrile
Concomitant Antimicrobials: pip/tazo
- Dosing Plan
Continue: vancomycin 1250 mg q12h
- Monitoring Plan
Peak Level: 07/28/24 2100 - after 4th 1250 mg dose
Trough Level: 07/29/24 0530
- Follow Up
Pharmacy will continue to follow.
Vancomycin Follow UP
- -
Patient Age: 63
Patient Sex: Male
Vancomycin Day #: 3
Indication: Bone And Joint
Requesting Provider: Maria Isabel Rowe
Pertinent Antimicrobial Allergies:
NKDA
Height / Weight:
Height 5 ft 11 in
Actual Weight 89.103 kg
Pertinent Past Medical History: DM 2
- Vital Signs / Lab Results
Temp Pulse Resp BP Pulse Ox
98.3 F 67 20 149/82 99
07/28/24 07:25 07/28/24 09:10 07/28/24 07:25 07/28/24 09:10 07/28/24 09:00
Lab Results - Hematology
07/26/24 07/27/24 07/28/24
16:13 08:02 06:37
WBC 11.2 H 8.4 7.1
Lab Results - Chemistry
07/26/24 07/27/24 07/28/24
16:13 08:02 06:37
BUN 17 12 11
Creatinine 0.6 L 0.6 L 0.6 L
Estimated Creat Clear > 125 > 125
Albumin 3.7 3.7 3.4 L
Microbiology Results
07/26/24 22:04 MRSA Screen - Final
Nose No Methicillin Resistant Staphylococcus aureus isolated.
07/26/24 18:30 Blood Culture - Preliminary
Blood/Venous No Growth in 24 hours- Final report to follow
07/26/24 18:30 Blood Culture - Preliminary
Blood/Venous No Growth in 24 hours- Final report to follow
[2024-07-28 12:24] LABS: Glucose - Point of Care 173 mg/dl (70-99)
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
--- NOTE | 2024-07-28 13:31 | W.PN.ID1 ---
Date of Service
Date of Service: July 28, 2024
Today's Communication
Narrow to Augmentin.
Assessment / Plan
Left third toe osteomyelitis
Left foot cellulitis
Leukocytosis
Elevated ESR
Elevated CRP
Diabetes mellitus (uncontrolled; A1c = 7.1)
Recommendations:
Patient is status post amputation, felt to be surgical cure.
Narrow to Augmentin 875 mg PO BID for an additional 7 days of therapy.
Chief Complaint
-: Other (Left third toe osteomyelitis)
Subjective / Review of Systems
Review of Systems: No Fever and No Chills
Vital Signs / Physical Exam
Vital Signs
Vital Signs
Temp Pulse Resp BP Pulse Ox
98.3 F 67 20 149/82 99
07/28/24 07:25 07/28/24 09:10 07/28/24 07:25 07/28/24 09:10 07/28/24 09:00
Physical Exam
Constitutional: No Acute Distress, Comfortable and Non-toxic
Eyes: Sclera Anicteric
Pulmonary: Non Labored
Wound: Other (Left foot with dressing in place. Minimal bloody strikethrough.)
Neurological: Awake and Alert
Psychological: Calm
Objective Data
Lab Data
Lab Results
07/28/24 06:37
07/28/24 06:37
ESR Cancelled 07/26/24 17:13
Estimated Creat Clear > 125 ml/min 07/28/24 06:37
Total Bilirubin 0.4 mg/dl (0.2-1.3) 07/28/24 06:37
AST 18 U/L (17-59) 07/28/24 06:37
ALT 20 U/L (0-50) 07/28/24 06:37
Alkaline Phosphatase 62 U/L (38-126) 07/28/24 06:37
C-Reactive Protein Cancelled 07/26/24 17:13
Most recent labs reviewed.
Micro Results:
07/26/24 22:04 MRSA Screen - Final
Nose No Methicillin Resistant Staphylococcus aureus isolated.
07/26/24 18:30 Blood Culture - Preliminary
Blood/Venous No Growth in 24 hours- Final report to follow
07/26/24 18:30 Blood Culture - Preliminary
Blood/Venous No Growth in 24 hours- Final report to follow
Imaging:
07/26/2024 X-ray left foot: Mild subcutaneous emphysema in the soft tissues of the tip of the third digit. This extends to the distal phalanx which is decreased in size suggesting bony destruction. There is a lucency in the posterior base of the
distal phalanx of the second, seen best on the lateral view concerning for osteomyelitis. Please see full dictation for additional detail. Film personally viewed.
07/27/2024 MRI left foot: Bone marrow edema, T1 hypointense marrow replacement, and enhancement of the third toe involving the proximal, middle, and distal phalanges indicating acute osteomyelitis. Third distal interphalangeal joint effusion most
compatible with septic arthritis. Osseous destructive changes and signal alteration of the second distal and middle phalanges suspicious for osteomyelitis. Bone marrow edema and enhancement of the first distal phalanx without overt T1 hypointense
marrow replacement, but remains concerning for the early changes of osteomyelitis. Mild hallux valgus deformity. Moderate osteoarthrosis of the first metatarsophalangeal joint and hallux sesamoid complex with degenerative subchondral cysts and
marginal osteophytes. Hammertoe deformities of the third through fifth toes. Scattered osteoarthritic changes elsewhere throughout the imaged forefoot and midfoot.
Care Review
Plan reviewed with: Physician (Podiatry; Hospitalist resident)
--- NOTE | 2024-07-28 14:22 | W.DCSUMMARY ---
Discharge Summary
Discharge Data
Date of Admission: 07/26/24
Date of Discharge: 07/28/24
-
Pending Results: No
Additional Pending Results:
Pathology reports
Hospital Course
Discharging Physician : Thomas Warner MD ; Gama Fink MD
Disposition : Home
Primary care physician :Gama Fink MD
Principal Discharge diagnosis :
Osteomyelitis
Diabetes type 2 (poorly controlled)
Alcohol use disorder
Essential hypertension
Marijuana use
Tobacco abuse
Hospital Course :
63 year old male with PMH of Diabetic foot infection, poorly controlled DM 2, tobacco, alcohol and marijuana abuse, who presented to the ED on 07/26/2024 at the request of his chainsaw mechanic with c/o third left third toe redness, discharge and
ulceration. Left foot x-ray obtained on 07/26 showed subcutaneous emphysema with possible bony destruction concerning for osteomyelitis. Patient was started on IV Zosyn and vancomycin and admitted for further evaluation and management.
An MRI of the left foot obtained on 07/27 positive for osteomyelitis of forefoot most prominent in the third digit although fastidious phalanges, second digit medial and distal phalanges also have changes suspicious for osteomyelitis. Patient was
taken to the OR and underwent partial amputation of the third toe and tolerated the procedure.
Postoperative day #1, patient is doing well vitals are stable and patient has been seen and examined by the chainsaw mechanic, in consultation with infectious disease and is medically stable for discharge. Patient has been instructed not to bear weight on
the right foot for the next 24 hours. A long discussion was also had with patient about smoking cessation as this could impair blood flow and wound healing. Patient has also been advised to limit alcohol use given his uncontrolled diabetes
mellitus.
His metformin has been increased to 2000 mg daily and patient has been instructed to follow-up with primary care physician in less than 1 week and follow-up with his chainsaw mechanic outpatient for pathology reports and further wound dressings and
management. Patient is being discharged on a 1 week course of Augmentin as recommended by infectious disease.
Important imaging findings :
MR left foot 07/27/2024:
Osteomyelitis of the forefoot with greatest involvement of the third toe proximal, middle, and distal phalanges including septic arthritis of the third distal interphalangeal joint. Signal changes in the second middle and distal phalanges and in the
first distal phalanx, also suspicious for osteomyelitis.
07/26/2024 X-ray left foot: Mild subcutaneous emphysema in the soft tissues of the tip of the third digit. This extends to the distal phalanx which is decreased in size suggesting bony destruction. There is a lucency in the posterior base of the
distal phalanx of the second, seen best on the lateral view concerning for osteomyelitis. Please see full dictation for additional detail. Film personally viewed.
Discharge Plan
-
Patient Disposition: Home (Routine Discharge)
Discharge Diagnosis/Procedures: Osteomyelitis
Diabetes type 2 (poorly controlled)
Alcohol use disorder
Essential hypertension
Marijuana use
Tobacco abuse
Condition: Good
Diet: Diabetic, Carb Controlled
Activity: Do not bear weight L leg
Additional Activity: No weightbearing on left leg for 24 hours as directed
Driving Restrictions: No driving for 24 hours
Bathing Restrictions: None
Referrals:
Gama Fink MD, Resident [Family Practice Resident Year2] - in less than 1 week
Juan Wong DPM [Specified Professional Personl] - in less than 1 week
UNKNOWN - PT DOES,NOT KNOW [Family Provider] - None
Additional Discharge Medication Instructions: Increase metformin to 1000 mg twice daily, take amoxicillin/clavulanic 1 tablet by mouth twice daily, use nicotine patch daily for smoking cessation.
Prescriptions:
New
nicotine 7 mg/24 hr Patch 24 Hour
7 mg transdermal DAILY Qty: 7 0RF
amoxicillin-pot clavulanate 875-125 mg tablet
1 tab PO BID Qty: 14 0RF
Continued
naphazoline 0.012 % Drops
2 drp OPHTHALMIC (EYE) BIDPRN PRN (Reason: dry eyes) Qty: 0
therapeutic multivitamin Tablet
1 tab PO HS
zinc sulfate 50 mg zinc (220 mg) Tablet
50 mg PO HS Qty: 0
hlnie-tr-5-gfz-new-wpluztm-ast [MegaRed [place]-3 Krill Oil] 1,000-230-60 mg Capsule
1 cap PO HS Qty: 0
calcium carb-mag ox-zinc gluc 333-133-5 mg Tablet
3 tab PO HS Qty: 0
glipizide 5 mg tablet
5 mg PO DAILY Qty: 30 0RF
enalapril maleate 5 mg Tablet
5 mg PO DAILY Qty: 30 2RF
garlic 100 mg Tablet
100 mg PO HS Qty: 0 0RF
Changed
metformin 500 mg Tablet
1,000 mg PO BID@0800,1700 Qty: 60 2RF
Discharge Orders:
Discharge Patient (As Directed); Ordered 07/28/24
Ordered By: Gama Fink
Discharge Date and Time
Print Language: BOLIVIAN
[2024-07-28 14:30] VITALS: BP 140/81
[2024-07-28 15:04] VITALS: BP 119/52
--- NOTE | 2024-07-28 15:15 | CM ---
SAW met with Eduard to complete IA. He lives with his sister in a 1st floor apartment with no entry steps; is (I) amb and ADLs. Eduard will make an appointment with his care program director for follow up.
Plan: Discharge to home with outpatient Podiatry for wound care.
== END 2024-07-28 15:11 | disposition home or self-care (01) | DRG 617 ==
LOC: 4 EAST ACU 20:42
PROVIDERS: Clinical Nurse Specialist Family Health; Physician Assistant; Student in an Organized Health Care Education/Training Program; ADMITTING PHYSICIAN Hospitalist; ATTENDING PHYSICIAN Hospitalist; CONSULT PHYSICIAN Internal Medicine Infectious Disease; CONSULT PHYSICIAN Podiatrist Foot & Ankle Surgery; EMERGENCY PHYSICIAN Emergency Medicine
PROC: 0Y6U0Z2 Detachment at Left 3rd Toe, Mid, Open Approach (ICD-10-PCS; 2024-07-26)
DX: E11.628 Type 2 diabetes mellitus with other skin complications (principal); L03.116 Cellulitis of left lower limb; M86.9 Osteomyelitis, unspecified; M00.9 Pyogenic arthritis, unspecified; E11.69 Type 2 diabetes mellitus with other specified complication; F10.10 Alcohol abuse, uncomplicated; I10 Essential (primary) hypertension; F17.210 Nicotine dependence, cigarettes, uncomplicated; F12.90 Cannabis use, unspecified, uncomplicated; E11.65 Type 2 diabetes mellitus with hyperglycemia
CPT/HCPCS: 88304; 88311; 73620; 73630; 73720; 80053; 82962; 83036; 85025; 85652; 86140; 87040; 87070; 96365; 96367; 97162; 97166; 99284; 99406; A9575

== ENCOUNTER → 2025-02-06 10:22 | Outpatient (REF) | payer BC, SELFPAY ==
[2025-02-06 16:03] LABS: TSH Reflex To Free T4 2.02 uIU/ml (0.47-4.68)
[2025-02-07 09:52] LABS: Glycohemoglobin (HgbA1c) 6.9 % (4.0-5.6)
== END ==
LOC: HWLAB 10:22
PROVIDERS: ATTENDING PHYSICIAN Student in an Organized Health Care Education/Training Program
DX: E11.22 Type 2 diabetes mellitus with diabetic chronic kidney disease (principal); N18.1 Chronic kidney disease, stage 1; E11.51 Type 2 diabetes mellitus with diabetic peripheral angiopathy without gangrene; E11.42 Type 2 diabetes mellitus with diabetic polyneuropathy
CPT/HCPCS: 36415; 83036; 84443

== ENCOUNTER → 2025-04-26 08:36 | Outpatient (REF) | payer BC, SELFPAY ==
[2025-04-26 12:07] LABS: Hematocrit 43.2 % (39.0-52.0); Hemoglobin 13.9 g/dL (13.0-18.0); Mean Corp Hgb Conc. 32.2 g/dL (33.0-37.0); Mean Corpuscular Volume 88.0 fL (80.0-94.0); Nucleated Red Blood Cells % 0 % (-); Platelet Count 373 10^3/uL (130-400); Red Cell Dist. Width 13.4 % (11.5-14.5)
[2025-04-26 12:23] LABS: ALT (SGPT) 19 U/L (0-50); AST (SGOT) 19 U/L (17-59); Albumin 3.8 g/dl (3.5-5.0); Alkaline Phosphatase 67 U/L (38-126); Blood Urea Nitrogen 16 mg/dl (9-20); Calcium 8.8 mg/dl (8.4-10.2); Carbon Dioxide 28 mmol/L (22-30); Chloride 103 mmol/L (98-107); Glucose 104 mg/dl (70-99); HDL Cholesterol 45 mg/dl; LDL Cholesterol, Calculated 26 mg/dl; Potassium 4.4 mmol/L (3.5-5.1); Sodium 139 mmol/L (135-145); Total Protein 6.6 g/dl (6.3-8.2); Very Low Density Lipoprotein 7 mg/dl (0-30); eGFR > 60.00
[2025-04-26 12:54] LABS: Glycohemoglobin (HgbA1c) 6.2 % (4.0-5.6)
== END ==
LOC: HWLAB 08:36
PROVIDERS: ATTENDING PHYSICIAN Student in an Organized Health Care Education/Training Program
DX: E11.22 Type 2 diabetes mellitus with diabetic chronic kidney disease (principal); R80.9 Proteinuria, unspecified; I10 Essential (primary) hypertension; E78.2 Mixed hyperlipidemia
CPT/HCPCS: 36415; 80053; 80061; 83036; 85025

== ENCOUNTER 2025-04-27 15:53 | Inpatient (IN) | payer BC, SELFPAY ==
[2025-04-27] VITALS (11 sets, daily range): BP systolic 79–145; BP diastolic 50–93; BMI 25.0
--- NOTE | 2025-04-27 13:55 | ED.GENMED ---
History of Present Illness
General
Chief Complaint: Vascular Symptoms
Time Seen by Provider: 04/27/25 13:41
History of Present Illness
History of Present Illness:
64-year-old male presents to the emergency department for evaluation of a left toe wound, he saw his clerk general as an outpatient today and was referred to an to the emergency department for likely amputation. He has a history of digit amputation
secondary to dog arthropathy and diabetic ulcerations. He states that this wound has been present for several weeks. No fevers or chills.
Review of Systems
Review of Systems
Allergies reviewed?: Yes
All Other Systems: ROS reviewed and negative except as documented in HPI and ROS
Phy Exam
Physical Exam
Physical Exam:
GEN: Well appearing, NAD, WDWN
HEENT: Oral mucosa moist, no scleral icterus
Cardiac: Regular rate
Lung: No respiratory distress, no tachypnea
MSK: No gross deformity or injuries
Skin: Good color, no pallor or jaundice. Deep ulcerated wound to the dorsal aspect of the left third toe with extruding bony tissue that appears to be fractured, probes approximately 3 mm in depth. There is diffuse erythema and swelling of the
left foot extending to the left proximal calf
Neuro: AO x3, moves all extremities freely
Psych: Calm, cooperative
Course
Orders/Labs/Results
Orders:
Orders
04/27/25 13:53
Piperacillin/Tazo 3.375 Gram [Zosyn] 3.375 gram in 50 ml IV NOW
CR Foot - Left Min 3 Views Urgent
Comment:
Reason For Exam: 4th toe osteo/L foot cellulitis
04/27/25 13:54
Vancomycin [Vancocin] 1,500 mg 0.9% Sodium Chloride 500 ml [Nss] 500 ml IV NOW
04/27/25 13:56
CRP [C-Reactive Protein] Urgent
Complete Blood Count/With Diff Urgent
Comprehensive Metabolic Panel Urgent
Blood Culture Q30M
NAYELI Source: Blood/Venous
Specimen Description:
Blood Culture Q30M
NAYELI Source: Blood/Venous
Specimen Description:
04/27/25 13:59
Wound Culture [Wound/Abscess/Other Culture] Urgent
NAYELI Source: Toe
Specimen Description:
Date Specimen was Collected: 04/27/25
Time Specimen was Collected: 13:58
04/27/25 14:51
0.9% Sodium Chloride 1000 ml [Nss] 1,000 ml IV BOLUS
04/27/25 15:36
PODIATRY CONSULT Routine
Consulting Provider: Juan Wong
Was physician already notified: Yes
04/27/25 15:37
Vascular Surgery Consult Routine
Consulting Provider: Jaime De Dios III
Was physician already notified: Yes
04/27/25 15:38
MR Left Le No Joint Without Routine
Comment:
Reason For Exam: nonhealing infected left diabetic foot wound
Recent pill cam endoscopy?: No
04/27/25 15:41
Admit/Transfer Patient As Directed
Co-Sign Provider:
Level of Care: Inpatient admission
Assign to:: Medical/Surgical
Physician / Group: Yuri
Diagnosis: Left Diabetic Foot Infection
Reason for Hospitalization: IV abx
Expected length of stay greater than two midnights?: Yes
ELOS- Estimated Length of Stay in days: 3
I certify the patient meets the requirements for IP care: Yes
PRN Pain Medication Management As Directed
May give lesser potent ordered pain med per pt: Yes
preference::
Protocol:: Medication orders for pain may be administered in a
manner that supports deferring to patient preference
when the pt is:
- Requesting an ordered lesser potent pain medication.
Least to most potent pain medications are defined
as: acetaminophen < NSAID < tramadol < opioids
(morphine, oxycodone, hydromorphone).
- Requesting a lesser dose of the same medication IF
ORDERED.
- Requesting a less intrusive route of administration
if both routes are prescribed by the provider (PO <
IV).
04/27/25 15:42
Code Status As Directed
Resuscitation Status: Full Code
04/27/25 15:47
0.9% Sodium Chloride 1000 ml [Nss] 1,000 ml IV BOLUS
Abnormal Lab Results
04/27/25
13:56
Absolute Monos (auto) 0.7 H 10^3/uL
(0.1-0.6)
BUN 22 H mg/dl
(9-20)
Glucose 122 H mg/dl
(70-99)
C-Reactive Protein 53.10 H mg/L
(0.0-10.00)
04/27/25 13:56
04/27/25 13:56
Vital Signs
Initial and Last Documented VS:
Initial Vital Signs
Temp Pulse Resp BP Pulse Ox
97.7 F 99 16 145/93 98
04/27/25 13:26 04/27/25 13:26 04/27/25 13:26 04/27/25 13:26 04/27/25 13:26
Last Documented Vital Signs
Temp Pulse Resp BP Pulse Ox
97.7 F 83 23 90/58 97
04/27/25 13:26 04/27/25 15:00 04/27/25 15:00 04/27/25 15:00 04/27/25 15:00
MDM/Problems Addressed
MDM/Problems Addressed:
Evidence for osteomyelitis with bony extrusion from left third toe, patient does have bounding pulses thus I do not suspect a vascular pathology. He has associated cellulitis extending to the foot and leg thus we will start empiric IV antibiotics
*Pulse Oximetry
SaO2: 98
Oxygen Mode of Delivery: Room air
Patient hypoxic: no
*Critical Care Note
Total Time (30-74mins, 75-104mins- exclusive of procedures): Not Applicable
ED Attending Note
-
Portions of this chart may have been created with voice recognition software.� Occasional wrong word or��sound alike� substitutions may have occurred due to the inherent limitations of voice recognition software.
Discharge Plan
Departure
Patient Disposition: Admit
Date of Disposition: 04/27/25
Time of Disposition: 14:57
Admit to: Med/Surg
Presentation/result/management discussed w/ accepting MD/DO: Hospitalist
Discharge Problem:
Osteomyelitis of third toe of left foot, Cellulitis of foot, left
Interventions
Interventions:
*Risk Screen - Suicide Last Done: 04/27/25 13:26
*General Assessment Last Done: 04/27/25 13:49
*Neglect/Abuse Screening Last Done: 04/27/25 13:26
*ED- Fall Risk Assessment Last Done: 04/27/25 13:49
*ED COVID-19 Vaccine History Last Done: 04/27/25 13:49
ED- Cardiac Assessment Last Done: 04/27/25 13:52
ED-Musculoskeletal Assessment Last Done: 04/27/25 13:52
ED- Pulmonary Assessment Last Done: 04/27/25 13:52
ED-Peripheral Vascular Assessment Last Done: 04/27/25 13:52
ED-Skin Assessment Last Done: 04/27/25 14:17
[2025-04-27 14:13] LABS: Hematocrit 40.5 % (39.0-52.0); Hemoglobin 13.5 g/dL (13.0-18.0); Mean Corp Hgb Conc. 33.3 g/dL (33.0-37.0); Mean Corpuscular Volume 86.0 fL (80.0-94.0); Nucleated Red Blood Cells % 0 % (-); Platelet Count 383 10^3/uL (130-400); Red Cell Dist. Width 13.3 % (11.5-14.5)
[2025-04-27 14:27] LABS: ALT (SGPT) 19 U/L (0-50); AST (SGOT) 19 U/L (17-59); Albumin 3.9 g/dl (3.5-5.0); Alkaline Phosphatase 61 U/L (38-126); Blood Urea Nitrogen 22 mg/dl (9-20); Calcium 9.3 mg/dl (8.4-10.2); Carbon Dioxide 24 mmol/L (22-30); Chloride 104 mmol/L (98-107); Glucose 122 mg/dl (70-99); Potassium 4.5 mmol/L (3.5-5.1); Sodium 138 mmol/L (135-145); Total Protein 6.8 g/dl (6.3-8.2); eGFR > 60.00
[2025-04-27 14:32] LABS: C-Reactive Protein 53.10 mg/L (0.0-10.00)
[2025-04-27] MEDS: ZOSYN 50 IV ×2 (14:49→20:06)
[2025-04-27] MEDS: NSS 1000 IV ×3 (14:51→17:41)
[2025-04-27] MEDS: VANCOCIN 530 MG IV (15:14)
--- NOTE | 2025-04-27 15:23 | HPS.HSE ---
Addendum entered and electronically signed by Drea Welch MD 04/27/25 18:23:
This is an addendum to H&P written by Joanie Steen on 04/27/2025. �Patient seen and examined independently with PA.
64-year-old male past medical history of hypertension, hyperlipidemia, diabetes, diabetic neuropathy presenting with worsening left third toe wound infection with drainage and increased redness extending up to the leg. �Fevers at home.
Vital signs show blood pressure 90s systolic.
Labs unremarkable apart from elevated inflammatory markers.
Foot x-ray shows dislocation of the proximal interphalangeal joint of the left fourth toe with deformity of the head of the proximal phalanx of the fourth toe likely related to osteomyelitis.
Patient with osteomyelitis of left third toe/chronic nonhealing wound
Blood cultures pending. �Vancomycin and Zosyn.� IV fluids being given. Check MRI. �Podiatry and vascular surgery consulted.
Original Note:
Family Physician
-
Family Physician: Markos Gill
Chief Complaint
-
Left Foot Wound
History of Present Illness
Patient is a 64 y/o male past medical history of hypertension, hyperlipidemia, diabetes mellitus with diabetic neuropathy who presents with worsening left foot wound infection. Patient reports he has had a wound on the left foot an extended period
of time. Earlier this week while at work the wound started draining and soaked through the dressing. Afterwards he developed increasing redness of the foot and now extended up the leg. Patient reports feeling feverish at home. He was seen by his
filing or registry clerk today who sent him to the emergency department for evaluation
Medical History
Past Medical History
Past Medical History: Reports Other
Additional Past Medical History:
Diabetes Mellitus, Type II
Diabetic Neuropathy
Essential Hypertension
Hyperlipidemia
Past Surgical History: Reports Other
Additional Past Surgical History:
Partial Right 5th Ray - October 2023
Partial Amputation Left 3rd Toe - Jul 2024
Social History
Tobacco: Smoker (1/2 PPD)
Alcohol: Former (Patient reports no alcohol since October 2024)
Drug: Marijuana (Nightly for pain)
Family History
Family History: Not pertinent
Allergies / Home Medications
Allergies reflects when Allergies were last updated in [employer].
Home Medications with original date entered in [employer]
Allergy/Medication List:
Allergies
Allergy/AdvReac Type Severity Reaction Status Date / Time
No Known Allergies Allergy Verified 04/27/25 13:28
Home Medications
krill 1,000 mg-omega-3 230 mg-dha 60 wn-glq-cwkdcciwq-astaxan capsule (MegaRed [place]-3 Krill Oil) 1 cap PO HS Supplement ##0 11/03/23
therapeutic multivitamin 1 tab PO HS Supplement 11/03/23
zinc sulfate 50 mg zinc (220 mg) tablet 50 mg PO HS Supplement ##0 11/03/23
garlic 100 mg tablet 100 mg PO HS Supplement #0 tabs 07/28/24
metformin 500 mg tablet 1,000 mg (2 x 500 mg) PO BID@0800,1700 Diabetes #60 tabs 07/28/24
aspirin 500 mg tablet 500 mg PO DAILY Pain 04/27/25
atorvastatin 10 mg tablet (Lipitor) 10 mg PO DAILY High Cholesterol 04/27/25
dapagliflozin propanediol 10 mg tablet (Farxiga) 10 mg PO DAILY Diabetes 04/27/25
loperamide 2 mg capsule 2 mg PO BIDPRN PRN diarrhea 04/27/25
tirzepatide 5 mg/0.5 mL subcutaneous pen injector (Mounjaro) 5 mg SC TH Diabetes 04/27/25
Review of Systems
-
History Source: Patient
A 12 point ROS was completed and negative except as noted: Yes
Respiratory: Denies Cough or Trouble Breathing
Cardiac: Denies Chest Pain or Palpitations
Abdomen/GI: Denies Abdominal Pain, Nausea, Vomiting or Diarrhea
Physical Exam
Vital Signs
Vital Signs
Temp Pulse Resp BP Pulse Ox
97.7 F 83 23 90/58 97
04/27/25 13:26 04/27/25 15:00 04/27/25 15:00 04/27/25 15:00 04/27/25 15:00
Physical Exam
General: Comfortable and Conversant
HEENT: Anicteric and Moist mucous membranes
Respiratory: Clear and Non Labored Respirations
Cardiac: S1/S2 and Regular Rhythm
GI: Soft and Non Tender
Rectal: Deferred by Provider
Musculoskeletal: No Clubbing, No Cyanosis and Edema, Left Lower Extremity
Skin: Warm, Dry and Other (Left foot in now wrapped; Moderate erythema of left foot extending up the left lower leg)
Neuro: Awake, Alert, Oriented and Nonfocal/grossly intact
Psych: Calm
Laboratory Results
-
04/27/25 13:56
04/27/25 13:56
Laboratory Results
Total Bilirubin 0.5 mg/dl (0.2-1.3) 04/27/25 13:56
AST 19 U/L (17-59) 04/27/25 13:56
ALT 19 U/L (0-50) 04/27/25 13:56
Alkaline Phosphatase 61 U/L (38-126) 04/27/25 13:56
Foot X-Ray:
Dislocation at the proximal interphalangeal joint of the left fourth toe with deformity of the head of the proximal phalanx of the fourth toe which is likely related to osteomyelitis.
Data Reviewed
-
Lab Data: Labs Reviewed by me
Impression/Plan
-
Infected Left Diabetic Foot Wound with Cellulitis and likely Osteomyelitis of 4th Toe
-Consult Podiatry
-Consult Vascular Surgery
-Check Lower Extremity MRI
-Continue Vancomycin and Zosyn
-Await wound and blood cultures
Diabetes Mellitus, Type II with Diabetic Neuropathy
-Check HgbA1c
-Hold metformin
-Hold dapagliflozin as BP running on the low side
Hyperlipidemia
-continue atorvastatin
Tobacco Use Disorder
-Encourage smoking cessation
-Reviewed with patient importance of quitting to help with wound healing
DVT Proph: Lovenox
Code Status: Full Code
--- NOTE | 2025-04-27 16:13 | CON.VAS ---
Addendum entered and electronically signed by Jaime De Dios III, MD 04/27/25 16:58:
This patient was seen and examined in collaboration with [facility]. I agree with the history and physical exam as well as the assessment and plan. I have the following additions:
64-year-old diabetic
Left toe wound with associated osteomyelitis
Sent in by podiatry for evaluation and admission
On physical exam he has pitting edema of the left calf, ankle and foot
Easily palpable dorsalis pedis pulse and posterior tibial pulse in the left foot
The left foot is warm and pink
No crepitus palpated
Nontender over the foot and ankle
Nontender calf
Reviewed lower extremity arterial studies from October 2023 which were within normal limits bilaterally.
Given that he has palpable pedal pulses I suspect there will be no role for vascular surgery intervention before definitive podiatric surgery intervention. Will update lower extremity arterial studies (ordered). Patient is pending MRI.
Communicated plan to Dr. Del Angel
Please call with any questions or concerns
Signed:
Jaime De Dios III, MD
Vascular Surgery
[facility]
Original Note:
Consultation
Consultation Request
Date/Time Consultation Performed: 04/27/25 @ 4pm
Performing Provider: Lanre
Reason for Consultation: Nonhealing left foot wound
Medical History
-
Chief Complaint: Nonhealing left foot wound
History of Present Illness:
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 Wong for
worsening left toe wound. Patient is unsure for how long he has had this wound he thinks possibly weeks. He has been seeing Dr. Wong and has an outpatient. Earlier this week he noted the toe to be draining which was a new finding. Today he
states his doctor told him he will need toe amputation due to 'the bone sticking out.' Patient does report feeling feverish at home.
Vascular consult for PAD eval before amputation.
Arterial ultrasound pending. Arterial ultrasound from July 2024 normal.
Patient seen at bedside in the emergency room with Dr. De Dios.
Past Medical History
Past Medical History: Other (Diabetes Mellitus, Type II, Diabetic Neuropathy, Essential Hypertension, Hyperlipidemia)
Past Surgical History: Other (Partial Right 5th Ray - October 2023, Partial Amputation Left 3rd Toe - Jul 2024)
Social History
Tobacco: Smoker
Alcohol: Former
Drug: Marijuana
Family History
Family History: Reviewed & Not Pertinent
Allergies / Home Medications
Allergy/AdvReac Type Severity Reaction Status Date / Time
No Known Allergies Allergy Verified 04/27/25 13:28
�Medication �Instructions �Recorded �Confirmed �Type
krill 1,000 mg-omega-3 230 mg-dha 1 cap PO HS Supplement ##0 11/03/23 04/27/25 History
60 zl-rxq-bvvvtiutl-astaxan
capsule (MegaRed [place]-3 Krill Oil)
therapeutic multivitamin 1 tab PO HS Supplement 11/03/23 04/27/25 History
zinc sulfate 50 mg zinc (220 mg) 50 mg PO HS Supplement ##0 11/03/23 04/27/25 History
tablet
garlic 100 mg tablet 100 mg PO HS Supplement #0 tabs 07/28/24 04/27/25 Rx
metformin 500 mg tablet 1,000 mg (2 x 500 mg) PO 07/28/24 04/27/25 Rx
BID@0800,1700 Diabetes #60 tabs
aspirin 500 mg tablet 500 mg PO DAILY Pain 04/27/25 04/27/25 History
atorvastatin 10 mg tablet (Lipitor) 10 mg PO DAILY High Cholesterol 04/27/25 04/27/25 History
dapagliflozin propanediol 10 mg 10 mg PO DAILY Diabetes 04/27/25 04/27/25 History
tablet (Farxiga)
loperamide 2 mg capsule 2 mg PO BIDPRN PRN diarrhea 04/27/25 04/27/25 History
tirzepatide 5 mg/0.5 mL 5 mg SC TH Diabetes 04/27/25 04/27/25 History
subcutaneous pen injector
(Mali)
Review of Systems
-
History Source: Patient
All other systems: Negative unless noted
Constitutional: Reports Fever
EENT: Reports No Symptoms
Respiratory: Reports No Symptoms
Cardiac: Reports No Symptoms
Vascular: Denies Leg Pain / Claudication
Abdomen/GI: Reports No Symptoms
: Reports No Symptoms
Musculoskeletal: Reports Edema
Skin: Reports Other (Left toe wound)
Neurological: Reports No Symptoms
Physical Exam
Vital Signs
Temp Pulse Resp BP Pulse Ox
97.7 F 83 23 90/58 97
04/27/25 13:26 04/27/25 15:00 04/27/25 15:00 04/27/25 15:00 04/27/25 15:00
Lab Results
04/27/25 13:56
04/27/25 13:56
Physical Exam
General: No Apparent Distress
HEENT: Normocephalic and Atraumatic
Respiratory: Non Labored Respirations
Cardiac: Negative JVD
GI: Soft and Non Tender
Musculoskeletal: No Clubbing, No Cyanosis and Edema (+2 pitting edema left lower extremity)
Skin: Warm, Dry and Other (Macerated, open, draining wound to the middle toe)
Neuro: Awake, Alert and Oriented
Psych: Calm
Pulses: Bilateral Dorsalis Pedis: +2 (Easily palpable pulses)
Assessment / Plan
-
64-year-old male here with nonhealing left middle toe wound, sent in by his cellars supervisor
Plan:
MRI pending
Arterial ultrasound pending-easily palpable distal pulses, likely should have good healing potential
Local wound care
Amputation per podiatry
[2025-04-27 17:15] LABS: Glucose - Point of Care 86 mg/dl (70-99)
[2025-04-27] MEDS: NOVOLOG FLEXPEN-LOW RESISTANCE SC (17:41)
[2025-04-27] MEDS: LOVENOX 40 MG SC (17:43)
--- NOTE | 2025-04-27 17:45 | PHA.VAN.IN ---
Assessment
- Assessment
Renal Function: Appears similar to baseline
Concomitant Antimicrobials: Piperacillin/Tazo
AUC Dosing Plan
- Dosing Variables
Dosing Weight (kg): 81
Dosing CrCl (ml/min): 115
Vd coefficient (L/kg): 0.7
- Empiric Dosing
Initial / Loading Dose: 1500 MG IV ~ 1515 & 500 MG IV ~1800
Maintenance Regimen: 1250 IV Q12H
Estimated AUC (mcg*h/mL): 475
Estimated Peak (mcg*h/mL): 31.6
Estimated Trough (mcg/ml): 11.1
Estimated Half Life (H): 6.9
- Monitoring
No levels ordered at this time: Consider levels in next few days
Pharmacokinetics Vancomycin I
- -
Patient Age: 64
Patient Sex: Male
Vancomycin Day #: 1
Indication: Diabetic Foot
Requesting Provider: Isabelle Jim
Height / Weight:
Height 5 ft 11 in
Actual Weight 81.306 kg
Pertinent Past Medical History: DM with diabetic neuropathy who presents w. worsening left foot infection
- Vital Signs / Lab Results
Temp Pulse Resp BP Pulse Ox
98.1 F 79 18 114/65 97
04/27/25 17:09 04/27/25 17:09 04/27/25 17:09 04/27/25 17:09 04/27/25 17:09
Lab Results - Hematology
04/27/25
13:56
WBC 9.8
Lab Results - Chemistry
04/27/25
13:56
BUN 22 H
Creatinine 0.7
Albumin 3.9
Microbiology Results
04/27/25 13:59 Gram Stain - Preliminary
Toe
--- NOTE | 2025-04-27 18:17 | PTCARENOTE ---
Received patient from ED AAOx3. Oriented to room. IVF NSS at 75/hr started. Pt offered no complaints. Made patient comfortable. Cont to assess patient status.
[2025-04-27] MEDS: VANCOCIN HCL 500 MG 100 IV (18:24)
[2025-04-27 21:05] LABS: Glucose - Point of Care 101 mg/dl (70-99)
[2025-04-28] MEDS: ZOSYN 50 IV ×4 (02:15→20:48)
[2025-04-28] MEDS: VANCOCIN 275 MG IV ×2 (05:55→17:24)
[2025-04-28 07:23] VITALS: BP 159/87
[2025-04-28 07:49] LABS: Glucose - Point of Care 83 mg/dl (70-99)
[2025-04-28 08:31] LABS: Hematocrit 38.7 % (39.0-52.0); Hemoglobin 13.0 g/dL (13.0-18.0); Mean Corp Hgb Conc. 33.6 g/dL (33.0-37.0); Mean Corpuscular Volume 86.4 fL (80.0-94.0); Platelet Count 332 10^3/uL (130-400); Red Cell Dist. Width 13.4 % (11.5-14.5)
[2025-04-28] MEDS: NSS 1000 IV (08:42)
[2025-04-28] MEDS: NOVOLOG FLEXPEN-LOW RESISTANCE SC ×3 (08:42→16:56)
[2025-04-28] MEDS: FLUSH (NSS) 1 FLUSH IV ×3 (08:43→17:25)
[2025-04-28] MEDS: LIPITOR 10 MG PO (08:43)
[2025-04-28 08:59] LABS: Blood Urea Nitrogen 14 mg/dl (9-20); Calcium 8.9 mg/dl (8.4-10.2); Carbon Dioxide 24 mmol/L (22-30); Chloride 106 mmol/L (98-107); Estimated Creatinine Clearance > 125 ml/min; Glucose 85 mg/dl (70-99); Potassium 4.4 mmol/L (3.5-5.1); Sodium 138 mmol/L (135-145); eGFR > 60.00
--- NOTE | 2025-04-28 09:02 | PHA.VAN.FU ---
Vancomycin Assessment / Plan
- Assessment
Renal Function: SCR Decreasing
WBC's are: WNL
In the past 24 hrs, patient has been: Afebrile
Concomitant Antimicrobials: ZOSYN
- Dosing Plan
Continue: 1250MG Q12H
- Monitoring Plan
Peak Level: 04/29@2130
Trough Level: 04/30@0530
- Follow Up
Pharmacy will continue to follow.
Vancomycin Follow UP
- -
Patient Age: 64
Patient Sex: Male
Vancomycin Day #: 2
Indication: Diabetic Foot
Requesting Provider: Isabelle Jim
Height / Weight:
Height 5 ft 11 in
Actual Weight 81.306 kg
Pertinent Past Medical History: DM with diabetic neuropathy who presents w. worsening left foot infection
- Vital Signs / Lab Results
Temp Pulse Resp BP Pulse Ox
98.1 F 75 20 126/68 98
04/27/25 23:02 04/27/25 23:02 04/27/25 23:02 04/27/25 23:02 04/28/25 08:39
Lab Results - Hematology
04/27/25 04/28/25
13:56 07:29
WBC 9.8 7.5
Lab Results - Chemistry
04/27/25 04/28/25
13:56 07:29
BUN 22 H 14
Creatinine 0.7 0.5 L
Estimated Creat Clear > 125
Albumin 3.9
Microbiology Results
04/27/25 13:59 Gram Stain - Preliminary
Toe
--- NOTE | 2025-04-28 09:11 | W.PN.HOSP.TC ---
Today's Communication/Plan
-
MRI lower extremity
Ultrasound lower extremity
Continue monitoring sugar
Possible podiatry surgery today
Assessment / Plan
Assessment / Plan
Assessment:
64-year-old male with a past medical history of hypertension, hyperlipidemia, diabetes mellitus with diabetic neuropathy came to the ED due to worsening left foot wound infection. This wound has been going on for extended period time, around couple
weeks. While at where his work his wound had started to drain it soaked through his dressing. It got worse following that with increased redness that extended up to his leg. He had been feeling feverish at home as well. 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
appointment with his senior technical manager yesterday who sent him to the ED for evaluation. In the ED he was found to have dislocation of the proximal interphalangeal joint of the left fourth toe with deformity of the head of the proximal phalanx of the
fourth toe likely related to osteomyelitis alongside of left third toe/chronic nonhealing wound with osteomyelitis. Patient was started on vancomycin and Zosyn, blood cultures were drawn, podiatry and vascular surgery were consulted, and IV fluids
were started. Patient is awaiting MRI today, and likely amputation with podiatry as well.
Plan:
#Infected Left Diabetic Foot Wound with Cellulitis and likely Osteomyelitis of 4th Toe
- Podiatry consulted, input appreciated. Dr. Hector saw patient last year in July
- Vascular surgery consulted, input appreciated. Due to palpable pedal pulses, vascular surgery was found to have no role. They will update lower extremity arterial studies.
- Lower extremity MRI pending, lower extremity ultrasound pending
- Continuing Vancomycin and Zosyn while awaiting wound and blood cultures
- Wound care consulted as well.
# Diabetes Mellitus, Type II with Diabetic Neuropathy
- HgbA1c at 6.2, well-controlled
- Holding metformin
- Holding dapagliflozin due to lower blood pressure
- Continue insulin sliding scale, low resistance
# Hyperlipidemia
-continue atorvastatin
# Tobacco Use Disorder
- Discussed with patient regarding smoking cessation, not interested at this time
- Affects all aspects of wound healing
- Will need to start nicotine patch
DVT prophylaxis: Lovenox
Full Code
Anticipated Discharge: 24 - 48 hours
Subjective/Interval History
-
Date of Service: April 28, 2025
Patient seen this morning, had a very flat affect. Understood that he has surgery planned for later today. Said that he has dealt with this kind of situation before and the situation is nothing new for him. Overall, reported no other complaints
other than his tenderness in his left lower extremity.
Objective Data
-
Labs:
Laboratory Results
04/28/25
07:29
WBC 7.5
Hgb 13.0
Hct 38.7 L
Plt Count 332
Sodium 138
Potassium 4.4
Chloride 106
Carbon Dioxide 24
BUN 14
Creatinine 0.5 L
Glucose 85
Calcium 8.9
Vital Signs:
Vital Signs
Temp Pulse Resp BP Pulse Ox
98.1 F 75 20 126/68 98
04/27/25 23:02 04/27/25 23:02 04/27/25 23:02 04/27/25 23:02 04/28/25 08:39
Review of Systems
-
History Source: Patient
Constitutional: Reports No Symptoms
EENT: Reports No Symptoms Reported
Respiratory: Reports No Symptoms
Cardiac: Reports No Symptoms
Abdomen/GI: Reports No Symptoms
Genitourinary: Reports No Symptoms
Musculoskeletal: Reports Other (Left lower extremity pain)
Skin: Reports No Symptoms
Neuro: Reports No Symptoms
Allergy / Immunology: Reports No Symptoms
Psych: Reports Depressed
Physical Exam
-
General: Well Developed, Well Nourished and Conversant
HEENT: Normocephalic and Atraumatic
Respiratory: Clear to Auscultation and Non Labored Respirations
Cardiac: Regular Rhythm and S1/S2
GI: Soft, Nontender and Nondistended
Musculoskeletal: Other (Left foot third toe wrapped up, tender to the touch. Pedal pulses palpated)
Skin: Warm and Dry
Neuro: Awake, Alert, Oriented and AO x 3
Psych: Calm
Data Reviewed
-
Diagnostic Radiology: Report Reviewed by me, Discussed with Physician and Discussed with Patient
Labs: Labs Reviewed by me, Discussed with Physician and Discussed with Patient
[2025-04-28] MEDS: IMODIUM 2 MG PO (09:27)
[2025-04-28 12:46] LABS: Glucose - Point of Care 84 mg/dl (70-99)
[2025-04-28 14:45] VITALS: BP 122/82; PULSE 78; O2SAT 98
[2025-04-28 15:37] VITALS: BP 133/78
[2025-04-28 15:42] VITALS: BP 122/82; PULSE 78; O2SAT 98
--- NOTE | 2025-04-28 16:35 | PTCARENOTE ---
Pt AAO x3, JEAN well, ambulatory in room/to BR; non-compliant with NWB LLE- stated 'I'm fine'. Denies discomfort in Lt foot. VSS. On room air- pulse ox 96%. Abd soft, rounded, raine PO well. Voids in BR without difficulty. Lt foot dsg D/I; pt
encouraged to keep LLE elevated when in bed. IVF's NSS @ 75 ml/hr infusing via Rt forearm site without sx of infiltration. Resting in bed at present, no c/o. Will continue to monitor.
[2025-04-28 16:46] LABS: Glucose - Point of Care 144 mg/dl (70-99)
[2025-04-28] MEDS: LOVENOX 40 MG SC (17:23)
--- NOTE | 2025-04-28 17:35 | W.CS.POD ---
Addendum entered and electronically signed by Juan Wong DPM 04/29/25 08:57:
Correction on the MRI read should have stated 'hypointense signal on T1 and hyperintense signal on STIR' involving the middle and proximal phalanges of the left fourth toe, indicative of acute osteomyelitis. Radiology read reviewed today as well-No
likely osteomyelitis extending to the fourth metatarsal head, left.
Original Note:
Consult Summary - Podiatry
-
This patient is a 64 year old male, well known to our practice, with PMH of Type 2 DM with associated peripheral neuropathy, hypertension and hyperlipidemia, admitted yesterday with a diabetic foot infection, LE cellulitis, with suspicion for acute
osteomyelitis, left foot. The patient has a history of foot ulceration, osteomyelitis, and amputations, more specifically a right partial fifth ray amputation in November of 2023 and left third toe amputation in July of 2024. This current wound of
the left fourth toe developed early February of this year, which suddenly worsened approximately 5 days ago. Against medical advisement, the patient did not call the promptly once he realized his condition was worsening. He was seen yesterday in the
office and immediately sent to the ER for IV antibiotics, XRAY and MRI with concern of osteomyelitis. He denies fever, chills or sweats. He is neuropathic and is not experiencing pain in the foot.
Afebrile, Mildly hypertensive.
BG 85, No Leukocytosis
04/28/25 XRAY, left foot: Dislocation at the proximal interphalangeal joint of the left fourth toe with deformity of the head of the proximal phalanx of the fourth toe which is likely related to osteomyelitis.
04/28/25 MRI, left foot: REPORT UNAVAILABLE. Personal evaluation of studies reveals hyperintense signal on T1 and hypointense signal on STIR of entire proximal phalanx, left fourth toe, indicative of acute osteomyelitis.
LE exam:
DP,PT pulses palpable, bilaterally
Decreased skin turgor, temp and absent digital hair growth, bilaterally.
Moderate edema and erythema of the left fourth toe extending to the level of the MTPJ with cellulitis extending into the foot and lower leg. No lymphangitis noted.
Left foot with large ulceration along the dorsum of the left fourth toe. The wound is full soft tissue thickness directly to exposed bone (proximal phalanx) at and proximal to the PIPJ.
No malodor, no active discharge, bleeding or purulence.
Plantar prominence of the fourth metatarsal head with overlying callus, stable.
Assessment:
Diabetic foot infection with acute osteomyelitis of the left fourth toe.
Type 2 DM with peripheral neuropathy.
HTN
Hyperlipidemia
Tobacco smoker
Plan:
Vascular note appreciated.
Debridement/Amputation of the infected left fourth toe and possibly partial fourth ray necessary.
Anticipate patient to OR tomorrow AM (04/29/25)
NPO after midnight ordered.
[2025-04-28 22:00] LABS: Glucose - Point of Care 101 mg/dl (70-99)
[2025-04-28 23:05] VITALS: BP 147/91
[2025-04-28 23:40] VITALS: BP 147/91
[2025-04-29] VITALS (10 sets, daily range): BP systolic 12–158; BP diastolic 72–102
[2025-04-29] MEDS: NSS 1000 IV (01:40)
[2025-04-29] MEDS: ZOSYN 50 IV ×4 (02:14→20:24)
[2025-04-29] MEDS: VANCOCIN 275 MG IV ×2 (05:55→18:18)
[2025-04-29 07:36] LABS: Glucose - Point of Care 96 mg/dl (70-99)
[2025-04-29 07:38] LABS: Hematocrit 39.5 % (39.0-52.0); Hemoglobin 13.2 g/dL (13.0-18.0); Mean Corp Hgb Conc. 33.4 g/dL (33.0-37.0); Mean Corpuscular Volume 86.6 fL (80.0-94.0); Platelet Count 325 10^3/uL (130-400); Red Cell Dist. Width 13.3 % (11.5-14.5)
[2025-04-29] MEDS: NOVOLOG FLEXPEN-LOW RESISTANCE SC ×3 (07:59→16:51)
[2025-04-29 08:53] LABS: ALT (SGPT) 17 U/L (0-50); AST (SGOT) 20 U/L (17-59); Albumin 3.8 g/dl (3.5-5.0); Alkaline Phosphatase 59 U/L (38-126); Blood Urea Nitrogen 9 mg/dl (9-20); Calcium 8.8 mg/dl (8.4-10.2); Carbon Dioxide 25 mmol/L (22-30); Chloride 106 mmol/L (98-107); Estimated Creatinine Clearance > 125 ml/min; Glucose 103 mg/dl (70-99); Potassium 4.5 mmol/L (3.5-5.1); Sodium 138 mmol/L (135-145); Total Protein 6.6 g/dl (6.3-8.2); eGFR > 60.00
--- NOTE | 2025-04-29 09:14 | W.PN.HOSP.TC ---
Today's Communication/Plan
-
OR today
Continue antibiotics
Glucose management with insulin sliding scale
Assessment / Plan
Assessment / Plan
Assessment:
64-year-old male with a past medical history of hypertension, hyperlipidemia, diabetes mellitus with diabetic neuropathy came to the ED due to worsening left foot wound infection. This wound has been going on for extended period time, around couple
weeks. While at where his work his wound had started to drain it soaked through his dressing. It got worse following that with increased redness that extended up to his leg. He had been feeling feverish at home as well. 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 In the ED he was found to have dislocation of the proximal interphalangeal joint of the left fourth toe with deformity of the head of the proximal phalanx of the
fourth toe likely related to osteomyelitis alongside of left third toe/chronic nonhealing wound with osteomyelitis. Patient was started on vancomycin and Zosyn, blood cultures were drawn, podiatry and vascular surgery were consulted, and IV fluids
were started. Patient underwent MRI yesterday, confirmed osteomyelitis. Awaiting podiatry surgery today.
Plan:
#Infected Left Diabetic Foot Wound with Cellulitis and likely Osteomyelitis of 4th Toe
- Podiatry consulted, input appreciated. Dr. Hector saw patient last year in July
- Vascular surgery consulted, input appreciated. Due to palpable pedal pulses, vascular surgery was found to have no role. They will update lower extremity arterial studies.
MRI findings:
1. ACUTE OSTEOMYELITIS in the PHALANGES of the LEFT 4TH TOE.
2. Chronic osseous erosions in the phalanges of the 2nd toe.
3. Previous amputation of most of the 3rd toe.
4. Mild hallux valgus deformity and moderate arthritis of the left 1st MTP joint.
5. Severe diffuse acute on chronic muscle denervation in the left foot and lower leg.
6. Chronic healed fractures of the distal tibia and fibular diaphyses.
7. Full-thickness longitudinal split tear of the peroneus brevis tendon.
- MRI confirms osteomyelitis in the fourth toe
- Patient to undergo surgery later today, scheduled for OR for debridement/amputation of left infected fourth toe and possible portion of fourth ray if necessary
- Blood cultures showed no growth so far
- Continuing Vancomycin and Zosyn while awaiting wound cultures
- Wound care consulted as well.
# Diabetes Mellitus, Type II with Diabetic Neuropathy
- HgbA1c at 6.2, well-controlled
- Holding metformin
- Holding dapagliflozin due to lower blood pressure
- Continue insulin sliding scale, low resistance
# Hyperlipidemia
-continue atorvastatin
# Tobacco Use Disorder
- Discussed with patient regarding smoking cessation, not interested at this time
- Affects all aspects of wound healing
- Will need to start nicotine patch
DVT prophylaxis: Lovenox
Full Code
Anticipated Discharge: 24 - 48 hours
Subjective/Interval History
-
Date of Service: April 29, 2025
Patient alert about a better spirits today following results of his MRI from yesterday. Spoke with him regarding any difficulties excepting amputation today, but he says that he is used to it as he is at multiple podiatry procedures in the past
including amputations. Says he is unsure why he is having these multiple recurrent infections in his feet however.
Objective Data
-
Labs:
Laboratory Results
04/29/25
05:59
WBC 7.1
Hgb 13.2
Hct 39.5
Plt Count 325
Sodium 138
Potassium 4.5
Chloride 106
Carbon Dioxide 25
BUN 9
Creatinine 0.6 L
Glucose 103 H
Calcium 8.8
Total Bilirubin 0.4
AST 20
ALT 17
Alkaline Phosphatase 59
Vital Signs:
Vital Signs
Temp Pulse Resp BP Pulse Ox
97.6 F 71 18 154/94 100
04/29/25 06:56 04/29/25 06:56 04/29/25 06:56 04/29/25 06:56 04/29/25 06:56
I&O
04/28/25 04/29/25 04/30/25
06:59 06:59 06:59
Intake Total 2415 / 2415
Output Total 400 / 400
Balance 2014
Review of Systems
-
History Source: Patient
Constitutional: Reports No Symptoms
EENT: Reports No Symptoms Reported
Respiratory: Reports No Symptoms
Cardiac: Reports No Symptoms
Abdomen/GI: Reports No Symptoms
Genitourinary: Reports No Symptoms
Musculoskeletal: Reports Other (Left lower extremity pain)
Skin: Reports No Symptoms
Neuro: Reports No Symptoms
Allergy / Immunology: Reports No Symptoms
Psych: Reports Depressed
Physical Exam
-
General: Well Developed, Well Nourished and Conversant
HEENT: Normocephalic and Atraumatic
Respiratory: Clear to Auscultation and Non Labored Respirations
Cardiac: Regular Rhythm and S1/S2
GI: Soft, Nontender and Nondistended
Musculoskeletal: Other (Left foot third toe wrapped up, tender to the touch. Pedal pulses palpated. Right fifth toe amputation, skin graft, no erythema or tenderness noted.)
Skin: Warm and Dry
Neuro: Awake, Alert, Oriented and AO x 3
Psych: Calm
Data Reviewed
-
MRI: Report Reviewed by me, Discussed with Physician and Discussed with Patient
Labs: Labs Reviewed by me, Discussed with Physician and Discussed with Patient
[2025-04-29 10:17] LABS: Glucose - Point of Care 91 mg/dl (70-99)
--- NOTE | 2025-04-29 10:18 | W.PN.UPDATE ---
Update Note
Progress Note Update
Discussed MRI findings regarding infected bone of the left fourth toe. Patient consent for surgical management of osteomyelitis of the left fourth toe obtained at bedside. The patient understands the benefits, risk, and possible complications of the
proposed procedure, as well as the potential need for further surgery.
--- NOTE | 2025-04-29 10:28 | W.PN.UPDATE ---
Update Note
Progress Note Update
POST OP
Procedure: Partial fourth ray amputation of the left foot under Local/IV sedation.
EBL: less than 1cc.
Prognosis: Good. Likely surgical cure of osteomyelitis.
Dressing changes to be done by surgeon tomorrow.
Orders:
-Resume diet
-XRAYS left foot
-Darco heel wedge shoe ordered
-NWB left foot for 24 hours.
[2025-04-29] MEDS: LIPITOR 10 MG PO (11:20)
--- NOTE | 2025-04-29 11:20 | PHA.VAN.FU ---
Vancomycin Assessment / Plan
- Assessment
Renal Function: Stable
WBC's are: WNL
In the past 24 hrs, patient has been: Afebrile
Concomitant Antimicrobials: piperacillin/tazobactam
- Dosing Plan
Continue: 1250mg q12h
- Monitoring Plan
Peak Level: 04/290
Trough Level: 04/30 530
- Follow Up
Pharmacy will continue to follow.
Vancomycin Follow UP
- -
Patient Age: 64
Patient Sex: Male
Vancomycin Day #: 3
Indication: Diabetic Foot
Requesting Provider: Isabelle Jim
Height / Weight:
Height 5 ft 11 in
Actual Weight 81.306 kg
Pertinent Past Medical History: T2DM with diabetic neuropathy
- Vital Signs / Lab Results
Temp Pulse Resp BP Pulse Ox
97.5 F 68 14 148/78 97
04/29/25 10:43 04/29/25 10:43 04/29/25 10:43 04/29/25 10:43 04/29/25 10:43
Lab Results - Hematology
04/27/25 04/28/25 04/29/25
13:56 07:29 05:59
WBC 9.8 7.5 7.1
Lab Results - Chemistry
04/27/25 04/28/25 04/29/25
13:56 07:29 05:59
BUN 22 H 14 9
Creatinine 0.7 0.5 L 0.6 L
Estimated Creat Clear > 125 > 125
Albumin 3.9 3.8
Microbiology Results
04/27/25 13:59 Wound Culture - Preliminary
Toe Pseudomonas aeruginosa
Enterococcus species
Gram Stain - Preliminary
04/27/25 20:33 MRSA Screen - Final
Nose No Methicillin Resistant Staphylococcus aureus isolated.
04/27/25 13:56 Blood Culture - Preliminary
Blood/Venous No Growth in 24 hours- Final report to follow
04/27/25 13:56 Blood Culture - Preliminary
Blood/Venous No Growth in 24 hours- Final report to follow
[2025-04-29 12:00] LABS: Glucose - Point of Care 81 mg/dl (70-99)
--- NOTE | 2025-04-29 14:33 | CM ---
Met with patient at bedside
Pharmacy verified: [facility] @ [id number] [facility]
Lives with his sister; 1st floor apartment; no steps to enter; couple of flights of stairs down to basement laundry in the building; bath has tub w/ shower
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
DME: [employer]
Will drive himself home
No SNF utilization; home health w/ [facility] 2023
Plan: per PT, recommendation/plan to be determined pending progress; Case Management will monitor and support if services are recommended
[2025-04-29 16:48] LABS: Glucose - Point of Care 123 mg/dl (70-99)
[2025-04-29] MEDS: LOVENOX 40 MG SC (18:18)
[2025-04-29] MEDS: ROXICODONE 5 MG PO ×2 (18:26→22:51)
[2025-04-29 21:15] LABS: Glucose - Point of Care 159 mg/dl (70-99)
[2025-04-30] MEDS: TYLENOL 650 MG PO ×2 (00:48→22:10)
[2025-04-30] MEDS: ZOSYN 50 IV ×2 (02:23→09:24)
[2025-04-30 06:00] VITALS: BMI 25.3
[2025-04-30 07:25] VITALS: BP 127/84
[2025-04-30] MEDS: VANCOCIN 275 MG IV (07:29)
[2025-04-30 07:38] LABS: Hematocrit 41.9 % (39.0-52.0); Hemoglobin 14.4 g/dL (13.0-18.0); Mean Corp Hgb Conc. 34.4 g/dL (33.0-37.0); Mean Corpuscular Volume 85.7 fL (80.0-94.0); Platelet Count 346 10^3/uL (130-400); Red Cell Dist. Width 13.2 % (11.5-14.5)
[2025-04-30 07:40] LABS: Glucose - Point of Care 108 mg/dl (70-99)
[2025-04-30 08:00] LABS: ALT (SGPT) 17 U/L (0-50); AST (SGOT) 20 U/L (17-59); Albumin 4.0 g/dl (3.5-5.0); Alkaline Phosphatase 60 U/L (38-126); Blood Urea Nitrogen 7 mg/dl (9-20); Calcium 9.1 mg/dl (8.4-10.2); Carbon Dioxide 25 mmol/L (22-30); Chloride 103 mmol/L (98-107); Estimated Creatinine Clearance > 125 ml/min; Glucose 107 mg/dl (70-99); Potassium 4.4 mmol/L (3.5-5.1); Sodium 138 mmol/L (135-145); Total Protein 6.8 g/dl (6.3-8.2); eGFR > 60.00
--- NOTE | 2025-04-30 08:22 | W.PN.HOSP.TC ---
Addendum entered and electronically signed by Valentín Streeter MD 04/30/25 16:48:
Diabetic left foot infection with acute osteomyelitis s/p partial fourth ray amputation of the left foot
Wound culture is growing Pseudomonas aeruginosa and Enterococcus faecalis.
Currently on Zosyn, consult ID per their recs will transition to ciprofloxacin x 4 days alternatively there is even still requiring antibiotics as partial fourth ray amputation has been completed therefore theoretically have source control.
I would like to err on the safe side and do ciprofloxacin 500 mg twice a day. Will need to check EKG for QTc. Additionally without seizure history.
Original Note:
Today's Communication/Plan
-
Possible repeat EKG
Continue IV antibiotics, pending culture sensitivities
Continue diabetes management
Wound care, foot care as per podiatry and wound care
Assessment / Plan
Assessment / Plan
Assessment:
64-year-old male with a past medical history of hypertension, hyperlipidemia, diabetes mellitus with diabetic neuropathy came to the ED due to worsening left foot wound infection. This wound has been going on for extended period time, around couple
weeks. While at where his work his wound had started to drain it soaked through his dressing. It got worse following that with increased redness that extended up to his leg. He had been feeling feverish at home as well. 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 In the ED he was found to have dislocation of the proximal interphalangeal joint of the left fourth toe with deformity of the head of the proximal phalanx of the
fourth toe likely related to osteomyelitis alongside of left third toe/chronic nonhealing wound with osteomyelitis. Patient was started on vancomycin and Zosyn, blood cultures were drawn, podiatry and vascular surgery were consulted, and IV fluids
were started. Patient underwent MRI, confirmed osteomyelitis. Underwent partial fourth ray amputation of the left foot under local/IV sedation.
Plan:
#Infected Left Diabetic Foot Wound with Cellulitis and likely Osteomyelitis of 4th Toe
- Podiatry consulted, input appreciated. Dr. Hector saw patient last year in July
- Vascular surgery consulted, input appreciated. Due to palpable pedal pulses, vascular surgery was found to have no role. They will update lower extremity arterial studies.
MRI findings:
1. ACUTE OSTEOMYELITIS in the PHALANGES of the LEFT 4TH TOE.
2. Chronic osseous erosions in the phalanges of the 2nd toe.
3. Previous amputation of most of the 3rd toe.
4. Mild hallux valgus deformity and moderate arthritis of the left 1st MTP joint.
5. Severe diffuse acute on chronic muscle denervation in the left foot and lower leg.
6. Chronic healed fractures of the distal tibia and fibular diaphyses.
7. Full-thickness longitudinal split tear of the peroneus brevis tendon.
- MRI confirms osteomyelitis in the fourth toe
- Blood cultures showed no growth so far
- Continuing Vancomycin and Zosyn while awaiting wound cultures
- Wound care consulted as well
- Underwent partial fourth ray amputation of the left foot under local/IV sedation
- Darco heel wedge shoe was ordered by podiatry
- Nonweightbearing on left foot for 24 hours postsurgery
# Tachycardia
- Started around 11 PM last night, EKG shows sinus tachycardia
- Most likely secondary to anesthesia, will continue to monitor and see if further intervention as needed
# Diabetes Mellitus, Type II with Diabetic Neuropathy
- HgbA1c at 6.2, well-controlled
- Holding metformin
- Holding dapagliflozin due to lower blood pressure
- Continue insulin sliding scale, low resistance
# Hyperlipidemia
-continue atorvastatin
# Tobacco Use Disorder
- Discussed with patient regarding smoking cessation, not interested at this time
- Affects all aspects of wound healing
- Will need to start nicotine patch
DVT prophylaxis: Lovenox
Full Code
Anticipated Discharge: Within 24 hours
Subjective/Interval History
-
Date of Service: April 30, 2025
Patient seen this morning, reports that he has been feeling well after the surgery however developed some increased heart rate last night around 11 PM. His heart rate is persisting and has been around 100s to 120s. Otherwise patient says that he
does not have much pain in his left foot after surgery, reports everything went well during surgery. Only concern is the increased heart rate at this time.
Objective Data
-
Labs:
Laboratory Results
04/30/25
06:38
WBC 11.2 H
Hgb 14.4
Hct 41.9
Plt Count 346
Sodium 138
Potassium 4.4
Chloride 103
Carbon Dioxide 25
BUN 7 L
Creatinine 0.5 L
Glucose 107 H
Calcium 9.1
Total Bilirubin 0.5
AST 20
ALT 17
Alkaline Phosphatase 60
Vital Signs:
Vital Signs
Temp Pulse Resp BP Pulse Ox
98.5 F 121 18 144/102 95
04/29/25 23:00 04/29/25 23:00 04/29/25 23:00 04/29/25 23:00 04/29/25 23:00
I&O
04/29/25 04/30/25 05/01/25
06:59 06:59 06:59
Intake Total 2415 / 2415
Output Total 400 / 400 2350 / 2350
Balance 2014 -2349 / -2349
Review of Systems
-
History Source: Patient
Constitutional: Reports No Symptoms
EENT: Reports No Symptoms Reported
Respiratory: Reports No Symptoms
Cardiac: Reports Other (Tachycardia); Denies Chest Pain, Palpitations or Syncope
Abdomen/GI: Reports No Symptoms
Genitourinary: Reports No Symptoms
Musculoskeletal: Reports Other (Mild lower extremity pain)
Skin: Reports No Symptoms
Neuro: Reports No Symptoms
Allergy / Immunology: Reports No Symptoms
Psych: Reports Depressed
Physical Exam
-
General: Well Developed, Well Nourished, Comfortable and Conversant
HEENT: Normocephalic and Atraumatic
Respiratory: Clear to Auscultation and Non Labored Respirations
Cardiac: Tachycardic
GI: Soft, Nontender and Nondistended
Musculoskeletal: Other (Left foot wrapped up in Sriram bandages following surgery, right foot is the same as before)
Skin: Warm and Dry
Neuro: Awake, Alert, Oriented and AO x 3
Psych: Calm
Data Reviewed
-
Labs: Labs Reviewed by me, Discussed with Physician, Discussed with Nurse and Discussed with Patient
--- NOTE | 2025-04-30 08:27 | WOUNDNOTE ---
WOC RN note: Confirmed with Dr. Wong to cancel WOC RN consult. Master Machinist is managing.
[2025-04-30] MEDS: NOVOLOG FLEXPEN-LOW RESISTANCE SC ×2 (09:22→13:09)
[2025-04-30] MEDS: LIPITOR 10 MG PO (09:24)
[2025-04-30] MEDS: FLUSH (NSS) 1 FLUSH IV (09:25)
--- NOTE | 2025-04-30 09:57 | CM ---
Chart reviewed. Post op, partial fourth ray amputation of the left foot
Cont IV abx
PT indicate pending progress for recommendations
Anticipate d/c within 24 hours
Plan: Home, watch for any d/c needs
--- NOTE | 2025-04-30 11:00 | CON.ID ---
Consultation
-
Date/Time Consultation Requested: 04/30/25 10:59
Date/Time Consultation Performed: 04/30/25 11:00
Requesting Provider: Dr Nixon
Performing Provider: Dr Clement
Reason for Consultation: diabetic foot infection
Chief Complaint / Past History
Chief Complaint
diabetic foot infection
History of Present Illness
Mr Virk is a 64 year old male with well controlled DM2 (a1c 6.2) c/b diabetic neuropathy, metabolic syndrome, who presented here 04/27 for worsening L 3rd toe infection with lymphagnitis and fevers. He was septic on arrival. Xray showed
'dislocation of the proximal interphalangeal joint of the left fourth toe with deformity of the head of the proximal phalanx of the fourth toe likely related to osteomyelitis.' MRI done showing 'hypointense signal on T1 and hyperintense signal on
STIR' involving the middle and proximal phalanges of the left fourth toe, indicative of acute osteomyelitis. No likely osteomyelitis extending to the fourth metatarsal head, left.' He was seen by vascular surgery also and no intervention was
planned. He was taken to the OR 04/29 for partial 4th ray amputation with likely surgical cure of osteomyelitis. He has been on vancomycin and zosyn. ID is consulted for assistance with management.
Past History
Additional Past Medical History:
Diabetes Mellitus, Type II
Diabetic Neuropathy
Essential Hypertension
Hyperlipidemia
Additional Past Surgical History:
Partial Right 5th Ray - October 2023
Partial Amputation Left 3rd Toe - Jul 2024
Allergy History:
No Known Allergies Allergy (Verified 04/27/25 13:28)
Medications Reviewed: Yes
Social History
Tobacco: Smoker
Alcohol: Former
Drug: Marijuana
Family History
Family History: Not Pertinent
Review of Systems
Review of Systems
A 12 point ROS was completed and negative except as noted: Yes
Vital Signs
Temp Pulse Resp BP Pulse Ox
98.6 F 126 18 127/84 97
04/30/25 07:25 04/30/25 07:25 04/30/25 07:25 04/30/25 07:25 04/30/25 09:11
Physical Exam
Physical Exam
Constitutional: No Acute Distress
Cardiovascular: Regular Rate and S1/S2; Negative Murmur or Rub
Pulmonary: Symmetric and Non Labored
Gastrointestinal: Non Distended
Skin: Warm and Dry; Negative Rash or Jaundice
Wound: Other (surgical dressing take down deferred)
Lab / Diagnostic Study Results
04/30/25 06:38
04/30/25 06:38
Abs Immat Gran (auto) 0.0 10^3/uL (0-0.05) 04/27/25 13:56
Absolute Neuts (auto) 6.1 10^3/uL (1.4-6.5) 04/27/25 13:56
Absolute Lymphs (auto) 2.5 10^3/uL (1.2-3.4) 04/27/25 13:56
Absolute Monos (auto) 0.7 10^3/uL (0.1-0.6) H 04/27/25 13:56
Absolute Basos (auto) 0.0 10^3/uL (0-0.2) 04/27/25 13:56
Immature Gran % 0.4 % (0-0.5) 04/27/25 13:56
Neutrophils % 62.4 % (42.2-75.2) 04/27/25 13:56
Lymphocytes % 25.1 % (20.5-51.1) 04/27/25 13:56
Monocytes % 6.9 % (1.7-9.3) 04/27/25 13:56
Eosinophils % 4.9 % (0-6) 04/27/25 13:56
Basophils % 0.3 % (0-2) 04/27/25 13:56
C-Reactive Protein 53.10 mg/L (0.0-10.00) H 04/27/25 13:56
Microbiology Results
Micro:
04/27/25 13:59 Wound Culture - Final
Toe Pseudomonas aeruginosa
Enterococcus faecalis
Gram Stain - Final
04/29/25 09:43 Tissue Culture - Preliminary
Bone Gram Stain - Preliminary
04/27/25 13:56 Blood Culture - Preliminary
Blood/Venous No Growth in 48 hours- Final report to follow
04/27/25 13:56 Blood Culture - Preliminary
Blood/Venous No Growth in 48 hours- Final report to follow
04/27/25 20:33 MRSA Screen - Final
Nose No Methicillin Resistant Staphylococcus aureus isolated.
Assessment / Plan
Diabetic Foot Infection - resolved
S/p partial amputation of the 4th ray
Dm2 - well controlled
- cultures reviewed, note that infected tissue has been resected and patient expected to have a surgical cure from 04/29
- could continue another 4 days of ciprofloxacin 500 mg PO BID, alternatively could stop antibiotics as infected tissue has been resected.
- DM2 is well controlled
- vascular surgery has evaluated patient - I do not see updated lower extremity arterial studies defer final decision to primary team
- follow up with podiatry
Care Review
Plan reviewed with: Physician (Dr Nixon - vascular studies)
[2025-04-30 11:13] VITALS: BP 116/78
--- NOTE | 2025-04-30 11:20 | W.PN.POD ---
Today's Communication
Today's Communication
Surgical site viable and stable, left foot.
Await surgical shoe. Anticipate discharge planning if medically stable.
Assessment / Plan
-
Assessment:
Diabetic foot infection with acute osteomyelitis of the left fourth toe.
S/P one day partial fourth ray amputation, left foot.
Type 2 DM with peripheral neuropathy.
HTN
Hyperlipidemia
Tobacco smoker
Plan:
Surgical site viable and stable. Packing removed and left foot redressed.
Patient to remain NWB on left foot until wedge surgical shoe available. No PT today.
Anticipate discharge planning.
Subjective
Chief Complaint
S/P one day partial fourth ray amputation, left foot.
Subjective
Patient resting comfortably in bed. Denies fever, chills or sweats. Minimal, fleeting pain last night.
Objective
Afebrile, VSS.
BG 107, WBC 11.2 (likely related to anesthesia)
04/28/25 XRAY, left foot: Dislocation at the proximal interphalangeal joint of the left fourth toe with deformity of the head of the proximal phalanx of the fourth toe which is likely related to osteomyelitis.
04/28/25 MRI, left foot: REPORT UNAVAILABLE. Personal evaluation of studies reveals hyperintense signal on T1 and hypointense signal on STIR of entire proximal phalanx, left fourth toe, indicative of acute osteomyelitis.
04/29/25: Interval resection of the fourth ray to the level of the head of the fourth metatarsal. Postoperative edema and soft tissue gas.
Temp Pulse Resp BP Pulse Ox
98.8 F 121 16 116/78 97
04/30/25 11:13 04/30/25 11:13 04/30/25 11:13 04/30/25 11:13 04/30/25 11:13
04/30/25 06:38
04/30/25 06:38
Vital Signs and Lab results were reviewed.
LE exam:
DP,PT pulses palpable, bilaterally
Decreased skin turgor, temp and absent digital hair growth, bilaterally.
Minimal edema of the left foot, ankle and lower leg. No cellulitis of the LLE.
Left foot with dressing clean, dry and intact. Surgical wound stable with packing in place. Light bleeding with removal of packing. Wound edges viable, sutures intact.
No malodor, no active discharge, or purulence.
Plantar prominence of the fourth metatarsal head now alleviated.
--- NOTE | 2025-04-30 12:22 | PHA.VAN.FU ---
Vancomycin Assessment / Plan
- Assessment
Vancomycin discontinued but provided the following patient-specific PK based on peak and trough
- Assessment - Therapeutic Drug Monitoring
Extrapolated Cmax (mcg/mL): 29.9
Peak level was drawn: Appropriately (drawn ~2.7H)
Extrapolated Cmin (mcg/mL): 14
Trough Drawn: Appropriately
Levels were drawn: At steady state (levels drawn after 4th maintenance dose - may not fully be at 4-5 half-lives)
Calculated AUC (mcg*h/mL): 355
Calculated ke: 0.0786
Calculated half life (H): 8.8
Calculated Vd (L): 90 (~1.1 L/kg)
Calculated Vanc CL (ml/min): 117
May still have additional accumulation but would like remain slightly subtherapeutic
Vanc 1500mg Q12H would predict AUC 451, Cmax 27.4, Cmin 12 for future dosing considerations
- Follow Up
vancomycin discontinued
Vancomycin Follow UP
- -
Patient Age: 64
Patient Sex: Male
Vancomycin Day #: 3
Indication: Diabetic Foot
Requesting Provider: Isabelle Jim
Height / Weight:
Height 5 ft 11 in
Actual Weight 82.299 kg
Pertinent Past Medical History: T2DM with diabetic neuropathy
- Vital Signs / Lab Results
Temp Pulse Resp BP Pulse Ox
98.8 F 121 16 116/78 97
04/30/25 11:13 04/30/25 11:13 04/30/25 11:13 04/30/25 11:13 04/30/25 11:13
Lab Results - Hematology
04/27/25 04/28/25 04/29/25
13:56 07:29 05:59
WBC 9.8 7.5 7.1
04/30/25
06:38
WBC 11.2 H
Lab Results - Chemistry
04/27/25 04/28/25 04/29/25
13:56 07:29 05:59
BUN 22 H 14 9
Creatinine 0.7 0.5 L 0.6 L
Estimated Creat Clear > 125 > 125
Albumin 3.9 3.8
04/30/25
06:38
BUN 7 L
Creatinine 0.5 L
Estimated Creat Clear > 125
Albumin 4.0
Microbiology Results
04/27/25 13:59 Wound Culture - Final
Toe Pseudomonas aeruginosa
Enterococcus faecalis
Gram Stain - Final
04/29/25 09:43 Tissue Culture - Preliminary
Bone Gram Stain - Preliminary
04/27/25 13:56 Blood Culture - Preliminary
Blood/Venous No Growth in 48 hours- Final report to follow
04/27/25 13:56 Blood Culture - Preliminary
Blood/Venous No Growth in 48 hours- Final report to follow
04/27/25 20:33 MRSA Screen - Final
Nose No Methicillin Resistant Staphylococcus aureus isolated.
Therapeutic Drug Monitoring
Vancomycin Peak 17.1 ug/ml (18-26) L 04/29/25 22:45
Vancomycin Trough 9.2 ug/ml (5-20) 04/30/25 06:38
[2025-04-30 13:09] LABS: Glucose - Point of Care 123 mg/dl (70-99)
--- NOTE | 2025-04-30 14:53 | W.PN.UPDATE ---
Update Note
Progress Note Update
I personally reviewed his lower extremity arterial studies. His ABIs and TBI's are within normal limits bilaterally. The arterial duplex examination reveals multiphasic waveforms from the common femoral artery through the popliteal artery
bilaterally with no focal velocity elevations to suggest significant stenosis bilaterally. Multiphasic continuous Doppler waveforms are demonstrated in the posterior tibial artery and dorsalis pedis artery bilaterally.
Based on review of his vascular lab studies and the presence of palpable pulses on physical examination, no vascular surgery intervention is recommended prior to definitive podiatric surgery procedure.
Please call with any questions or concerns.
Jaime De Diso III, MD
Vascular Surgery
[facility]
[2025-04-30 15:24] VITALS: BP 118/85
--- NOTE | 2025-04-30 16:18 | PTCARENOTE ---
Pt AAO x3, JEAN; able to stand/transfer to stretcher with assist x1/walker, NWB LLE. VSS. On room air- pulse ox 96%, no SOB noted. Abd large, soft, raine PO well, pt reports loose BM x1. Voids clear yellow urine in urinal. Lt foot dsg/WILLOW wrap
intact, sensation (+) to Lt toes. Resting in bed at present, no c/o. Will continue to monitor.
[2025-04-30 16:53] LABS: Glucose - Point of Care 187 mg/dl (70-99)
[2025-04-30] MEDS: LOVENOX 40 MG SC (17:48)
[2025-04-30] MEDS: NOVOLOG FLEXPEN-LOW RESISTANCE 1 UNITS SC (18:19)
[2025-04-30 19:00] VITALS: BP 111/68
[2025-04-30] MEDS: ROXICODONE 5 MG PO (22:09)
[2025-04-30] MEDS: CIPRO 500 MG PO (22:10)
[2025-04-30 23:00] VITALS: BP 118/76
[2025-05-01 00:30] LABS: Glucose - Point of Care 135 mg/dl (70-99)
[2025-05-01 03:00] VITALS: BP 119/82
[2025-05-01 06:00] VITALS: BMI 24.6
[2025-05-01 07:35] VITALS: BP 117/76
[2025-05-01 07:36] LABS: Glucose - Point of Care 115 mg/dl (70-99)
[2025-05-01] MEDS: NOVOLOG FLEXPEN-LOW RESISTANCE SC (07:37)
[2025-05-01] MEDS: LIPITOR 10 MG PO (08:39)
[2025-05-01] MEDS: CIPRO 500 MG PO (08:39)
[2025-05-01 08:54] LABS: Hematocrit 41.6 % (39.0-52.0); Hemoglobin 14.0 g/dL (13.0-18.0); Mean Corp Hgb Conc. 33.7 g/dL (33.0-37.0); Mean Corpuscular Volume 86.3 fL (80.0-94.0); Platelet Count 391 10^3/uL (130-400); Red Cell Dist. Width 13.4 % (11.5-14.5)
--- NOTE | 2025-05-01 09:11 | W.PN.HOSP.TC ---
Addendum entered and electronically signed by Valentín Streeter MD 05/02/25 17:55:
agree with resident below
Original Note:
Today's Communication/Plan
-
Patient to be discharged home following podiatry recommendations
Will continue ciprofloxacin for the next 3 days including today
Assessment / Plan
Assessment / Plan
Assessment:
64-year-old male with a past medical history of hypertension, hyperlipidemia, diabetes mellitus with diabetic neuropathy came to the ED due to worsening left foot wound infection. This wound has been going on for extended period time, around couple
weeks. While at where his work his wound had started to drain it soaked through his dressing. It got worse following that with increased redness that extended up to his leg. He had been feeling feverish at home as well. 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 In the ED he was found to have dislocation of the proximal interphalangeal joint of the left fourth toe with deformity of the head of the proximal phalanx of the
fourth toe likely related to osteomyelitis alongside of left third toe/chronic nonhealing wound with osteomyelitis. Patient was started on vancomycin and Zosyn, blood cultures were drawn, podiatry and vascular surgery were consulted, and IV fluids
were started. Patient underwent MRI, confirmed osteomyelitis. Underwent partial fourth ray amputation of the left foot under local/IV sedation. Patient has had tachycardia yesterday, was placed on telemetry. Overnight seems to have some
instances of A-fib which resolved. Now back to his normal heart rhythm and rate. Overall feeling much better now and is now converted over to oral ciprofloxacin as well.
Plan:
#Infected Left Diabetic Foot Wound with Cellulitis and likely Osteomyelitis of 4th Toe
- Podiatry consulted, input appreciated. Dr. Hector saw patient last year in July
- Vascular surgery consulted, input appreciated. Due to palpable pedal pulses, vascular surgery was found to have no role. They will update lower extremity arterial studies.
MRI findings:
1. ACUTE OSTEOMYELITIS in the PHALANGES of the LEFT 4TH TOE.
2. Chronic osseous erosions in the phalanges of the 2nd toe.
3. Previous amputation of most of the 3rd toe.
4. Mild hallux valgus deformity and moderate arthritis of the left 1st MTP joint.
5. Severe diffuse acute on chronic muscle denervation in the left foot and lower leg.
6. Chronic healed fractures of the distal tibia and fibular diaphyses.
7. Full-thickness longitudinal split tear of the peroneus brevis tendon.
- MRI confirms osteomyelitis in the fourth toe
- Blood cultures showed no growth
- Wound care consulted as well
- Underwent partial fourth ray amputation of the left foot under local/IV sedation
- Darco heel wedge shoe was ordered by podiatry
- Nonweightbearing on left foot for 24 hours postsurgery
- Wound culture grew Pseudomonas, Enterococcus
- ID consulted, input appreciated
- Antibiotics switched to Cipro oral following sensitivity data
- Patient may not even need antibiotics as source was controlled however patient to be taking this for the next 3 days
# Tachycardia
- Started around 11 PM 04/29, EKG showed sinus tachycardia
- Most likely secondary to anesthesia
- Patient was placed on telemetry, overnight showed possible A-fib which resolved
- Tachycardia has now resolved, patient now back down to his normal heart rate and rhythm
- Will have to follow-up with cardiology in the outpatient setting for further management
# Diabetes Mellitus, Type II with Diabetic Neuropathy
- HgbA1c at 6.2, well-controlled
- Holding metformin
- Holding dapagliflozin due to lower blood pressure
- Continue insulin sliding scale, low resistance
# Hyperlipidemia
-continue atorvastatin
# Tobacco Use Disorder
- Discussed with patient regarding smoking cessation, not interested at this time
- Affects all aspects of wound healing
- Will need to start nicotine patch
DVT prophylaxis: Lovenox
Full Code
Anticipated Discharge: Today
Subjective/Interval History
-
Date of Service: May 01, 2025
Patient says that he has been feeling much better, says that his heart rate has come back down and he feels ready to go home. Wants to wait for podiatry evaluation before he can go home however. Overall feeling much better reports no fever,
chills, and reports that his pain in his left foot postsurgery is much manageable.
Objective Data
-
Labs:
Laboratory Results
05/01/25
08:14
WBC 10.7
Hgb 14.0
Hct 41.6
Plt Count 391
Sodium Pending
Potassium Pending
Chloride Pending
Carbon Dioxide Pending
BUN Pending
Creatinine Pending
Glucose Pending
Calcium Pending
Total Bilirubin Pending
AST Pending
ALT Pending
Alkaline Phosphatase Pending
Vital Signs:
Vital Signs
Temp Pulse Resp BP Pulse Ox
98.1 F 85 18 117/76 97
05/01/25 07:35 05/01/25 07:35 05/01/25 07:35 05/01/25 07:35 05/01/25 07:35
I&O
04/30/25 05/01/25 05/02/25
06:59 06:59 06:59
Intake Total 970 / 970
Output Total 2350 / 2350 1125 / 1125
Balance -2350 / -2350 -155 / -155
Review of Systems
-
History Source: Patient
Constitutional: Reports No Symptoms
EENT: Reports No Symptoms Reported
Respiratory: Reports No Symptoms
Cardiac: Reports Other (Resolved tachycardia); Denies Chest Pain, Palpitations or Syncope
Abdomen/GI: Reports No Symptoms
Genitourinary: Reports No Symptoms
Musculoskeletal: Reports Other (Mild lower extremity pain)
Skin: Reports No Symptoms
Neuro: Reports No Symptoms
Allergy / Immunology: Reports No Symptoms
Psych: Reports Depressed
Physical Exam
-
General: Well Developed, Well Nourished, Comfortable and Conversant
HEENT: Normocephalic and Atraumatic
Respiratory: Clear to Auscultation and Non Labored Respirations
Cardiac: Regular Rhythm and S1/S2
GI: Soft, Nontender and Nondistended
Musculoskeletal: Other (Left foot wrapped up in Sriram bandages following surgery, right foot is the same as before)
Skin: Warm and Dry
Neuro: Awake, Alert, Oriented and AO x 3
Psych: Calm
Data Reviewed
-
Diagnostic Radiology: Report Reviewed by me, Discussed with Physician and Discussed with Patient
Ultrasound: Report Reviewed by me, Discussed with Physician and Discussed with Patient
Labs: Labs Reviewed by me, Discussed with Physician and Discussed with Patient
--- NOTE | 2025-05-01 10:15 | W.PN.ID1 ---
Date of Service
Date of Service: May 01, 2025
Today's Communication
- continue another 3 days of ciprofloxacin 500 mg PO BID as prophylaxis
- DM2 is well controlled
- follow up with podiatry
Assessment / Plan
Diabetic Foot Infection - resolved
S/p partial amputation of the 4th ray
Dm2 - well controlled
- cultures reviewed, note that infected tissue has been resected and patient expected to have a surgical cure from 04/29
- continue another 3 days of ciprofloxacin 500 mg PO BID as prophylaxis
- DM2 is well controlled
- follow up with podiatry
Chief Complaint
-: Other (diabetic foot infection)
Subjective / Review of Systems
afebrile
bp stable
tolerating current therapies
Vital Signs / Physical Exam
Vital Signs
Vital Signs
Temp Pulse Resp BP Pulse Ox
98.1 F 85 18 117/76 97
05/01/25 07:35 05/01/25 07:35 05/01/25 07:35 05/01/25 07:35 05/01/25 07:35
Physical Exam
Constitutional: No Acute Distress
Cardiovascular: Regular Rate
Pulmonary: Symmetric and Non Labored
Wound: Other (dressing take down deferred)
Objective Data
Lab Data
Lab Results
05/01/25 08:14
Estimated Creat Clear > 125 ml/min 04/30/25 06:38
Total Bilirubin 0.5 mg/dl (0.2-1.3) 04/30/25 06:38
AST 20 U/L (17-59) 04/30/25 06:38
ALT 17 U/L (0-50) 04/30/25 06:38
Alkaline Phosphatase 60 U/L (38-126) 04/30/25 06:38
C-Reactive Protein 53.10 mg/L (0.0-10.00) H 04/27/25 13:56
Most recent labs reviewed.
Micro Results:
04/27/25 13:56 Blood Culture - Preliminary
Blood/Venous No Growth in 72 hours- Final report to follow
04/27/25 13:56 Blood Culture - Preliminary
Blood/Venous No Growth in 72 hours- Final report to follow
04/27/25 13:59 Wound Culture - Final
Toe Pseudomonas aeruginosa
Enterococcus faecalis
Gram Stain - Final
04/29/25 09:43 Tissue Culture - Preliminary
Bone Gram Stain - Preliminary
04/27/25 20:33 MRSA Screen - Final
Nose No Methicillin Resistant Staphylococcus aureus isolated.
[2025-05-01 11:25] VITALS: BP 122/72
--- NOTE | 2025-05-01 12:04 | CON.CAR ---
Addendum entered and electronically signed by Darrick Gomez MD 05/01/25 12:45:
I saw and examined the patient.
The CABLE PULLER's note was reviewed and I agree with the note.
Comment: 64 year old male with HTN, HLD, type II DM, CKD (G1/A3), current smoker, and diabetic nephropathy presented to the emergency room with a chief complaint of left foot wound. He is now s/p partial fourth left toe amputation. We were consulted
for possible AF.
Upon review of telemetry it looks more consistent with atrial tachycardia rather than AF.
He certainly has risk factors and we will provide further eval with a 14 day monitor and follow up.
Original Note:
Consultation
Consultation Request
Date/Time Consultation Requested: 05/01/2025 11:00
Date/Time Consultation Performed: 05/01/2025 11:40
Requesting Provider: Dr. Nixon [Resident]
Performing Provider: NAV Tejeda for Dr. Gomez
Reason for Consultation: Abnormal telemetry
Medical History
-
Chief Complaint: Left foot wound
History of Present Illness:
Eduard Virk is a 64 year old male with HTN, HLD, type II DM, CKD (G1/A3), current smoker, and diabetic nephropathy presented to the emergency room with a chief complaint of left foot wound. He had associated drainage and redness. He was seen by
podiatry, ID, and vascular surgery. He is s/p partial fourth left toe amputation by Dr. Martinez. Cardiology was consulted for abnormal telemetry. There was concern for atrial fibrillation. Mr. Virk has no chest pain, shortness of breath,
dizziness, and palpitations.
Past Medical History
Past Medical History: HTN, Hypercholesterolemia, NIDDM, Renal Failure (CKD) and Other (diabetic neuropathy)
Social History
Tobacco: Smoker
Alcohol: None (None since October,.)
Drug: None
Personal: Single
Living: With Family (Sister)
Employment: Employed ([employer])
Family History
Family History: Reviewed & Not Pertinent
Allergies / Home Medications
Allergy/AdvReac Type Severity Reaction Status Date / Time
No Known Allergies Allergy Verified 04/27/25 13:28
�Medication �Instructions �Recorded �Confirmed �Type
krill 1,000 mg-omega-3 230 mg-dha 1 cap PO HS Supplement ##0 11/03/23 04/27/25 History
60 dg-iqr-prtmbggss-astaxan
capsule (MegaRed [place]-3 Krill Oil)
therapeutic multivitamin 1 tab PO HS Supplement 11/03/23 04/27/25 History
zinc sulfate 50 mg zinc (220 mg) 50 mg PO HS Supplement ##0 11/03/23 04/27/25 History
tablet
garlic 100 mg tablet 100 mg PO HS Supplement #0 tabs 07/28/24 04/27/25 Rx
metformin 500 mg tablet 1,000 mg (2 x 500 mg) PO 07/28/24 04/27/25 Rx
BID@0800,1700 Diabetes #60 tabs
aspirin 500 mg tablet 500 mg PO DAILY Pain 04/27/25 04/27/25 History
atorvastatin 10 mg tablet (Lipitor) 10 mg PO DAILY High Cholesterol 04/27/25 04/27/25 History
dapagliflozin propanediol 10 mg 10 mg PO DAILY Diabetes 04/27/25 04/27/25 History
tablet (Farxiga)
loperamide 2 mg capsule 2 mg PO BIDPRN PRN diarrhea 04/27/25 04/27/25 History
tirzepatide 5 mg/0.5 mL 5 mg SC TH Diabetes 04/27/25 04/27/25 History
subcutaneous pen injector
(Mounjaro)
oxycodone 5 mg tablet 5 mg PO Q4HPRN PRN moderate pain 05/01/25 Rx
#10 tabs
Review of Systems
-
History Source: Patient
All other systems: Negative unless noted
Constitutional: No Symptoms
EENT: No Symptoms
Respiratory: No Symptoms
Cardiac: No Symptoms
Abdomen/GI: No Symptoms
: No Symptoms
Musculoskeletal: No Symptoms
Skin: Other (See HPI)
Neurological: No Symptoms
Endocrine: No Symptoms
Hematologic/Lymphatic: No Symptoms
Physical Exam
Vital Signs
Temp Pulse Resp BP Pulse Ox
98.1 F 85 18 117/76 97
05/01/25 07:35 05/01/25 07:35 05/01/25 07:35 05/01/25 07:35 05/01/25 07:35
Lab Results
05/01/25 08:14
Physical Exam
General: Well Developed, Well Nourished, No Apparent Distress and Comfortable
HEENT: Normocephalic, Anicteric and Moist Mucous Membranes
Respiratory: Clear and Non Labored Respirations
Cardiac: S1/S2 and Regular Rhythm
Breast: Deferred by me
GI: Soft, Non Tender, Non Distended and Normal Bowel Sounds
Rectal: Deferred by Provider
Genito-urinary: No Costovertebral Tender
Musculoskeletal: No Clubbing, No Cyanosis and Edema (LLE)
Skin: Warm, Dry and Other (left foot wrapped)
Neuro: Awake and Alert
Hematologic/Lymphatic: No Lymphadenopathy
Psych: Calm
Impression / Plan
-
I/P: 64M with HTN, HLD, type II DM, CKD (G1/A3), current smoker, and diabetic nephropathy presented to the emergency room with a chief complaint of left foot wound.
Outpatient mortar maker: None
Atrial tachycardia
-Denies palpitations
-Short runs on telemetry
-Higher risk for paroxysmal atrial fibrillation down the line, none currently
-Outpatient 14 day monitoring
Osteomyelitis in left 4th toe, s/p amputation, managed by ID & podiatry
CKD (G1/A3), per primary
HLD, chronic, care per PCP (type 2 DM)
Type II DM, with hyperglycemia, per primary
Current tobacco abuse, continued cessation recommended
Data Reviewed
-
EKG: Report Reviewed by me
Labs: Labs Reviewed by me
Old Records: Reviewed
[2025-05-01 12:18] LABS: Glucose - Point of Care 150 mg/dl (70-99)
--- NOTE | 2025-05-01 12:35 | W.PN.POD ---
Today's Communication
Today's Communication
Patient stable for discharge from podiatry standpoint.
WB in wedged shoe only.
Will follow in my office later this week.
Assessment / Plan
-
Assessment:
Diabetic foot infection with acute osteomyelitis of the left fourth toe.
S/P two days partial fourth ray amputation, left foot. Cellulitis/infection clinically resolved.
Type 2 DM with peripheral neuropathy.
HTN
CKD
Hyperlipidemia
Tobacco smoker
Plan:
Surgical site viable and stable. Packing site filled in, left foot.
Full WB in wedge surgical shoe allowable. PT aware.
ID note appreciated. Continue 3 days PO Cipro 500mg BID upon discharge.
Patient stable for discharge from podiatry standpoint.
Atrial Tachycardia as per Cardiology. Possible Echo today.
If hospital stay is extended, consult [facility] for dressing changes.
Please reconsult as necessary.
Subjective
Chief Complaint
S/P 2 days partial fourth ray amputation, left foot
Subjective
Patient resting comfortably in bed. Denies any discomfort to the left foot. No fevers, chills, sweats, SOB or chest pain.
Objective
Afebrile, VSS.
BG 10, No leukocytosis.
04/28/25 XRAY, left foot: Dislocation at the proximal interphalangeal joint of the left fourth toe with deformity of the head of the proximal phalanx of the fourth toe which is likely related to osteomyelitis.
04/28/25 MRI, left foot: FOURTH TOE: There is a large amount of low T1 and high T2/STIR signal intensity enhancement in the distal phalanx, middle phalanx, and proximal phalanx of the fourth toe consistent with acute osteomyelitis. There is
surrounding enhancing soft tissue edema consistent with acute cellulitis. There is reactive bone marrow edema in the head of the fourth metatarsal without evidence for low T1 signal intensity to suggest acute osteomyelitis.
04/29/25 XRAY, left foot: Interval resection of the fourth ray to the level of the head of the fourth metatarsal. Postoperative edema and soft tissue gas.
04/27/25: Wound culture: Pseudomonas aeruginosa, Enterococcus faecalis
04/29/25: Bone culture Prelim: Gram negative bacilli, Coag negative staphylococcus, Enterococcus species
Path: PND
Temp Pulse Resp BP Pulse Ox
98.1 F 85 18 117/76 97
05/01/25 07:35 05/01/25 07:35 05/01/25 07:35 05/01/25 07:35 05/01/25 07:35
05/01/25 08:14
Vital Signs and Lab results were reviewed.
LE exam:
DP,PT pulses palpable, bilaterally
Decreased skin turgor, temp and absent digital hair growth, bilaterally.
Minimal edema of the left foot, ankle and lower leg. No cellulitis of the LLE.
Left foot with dressing clean, dry and intact. Surgical wound stable with defect from packing filled in. Wound edges viable, well apposed, sutures intact.
No malodor, no active discharge, or purulence.
Plantar prominence of the fourth metatarsal head now alleviated.
[2025-05-01] MEDS: NOVOLOG FLEXPEN-LOW RESISTANCE 1 UNITS SC (13:10)
[2025-05-01 13:11] LABS: ALT (SGPT) 18 U/L (0-50); AST (SGOT) 17 U/L (17-59); Albumin 3.5 g/dl (3.5-5.0); Alkaline Phosphatase 50 U/L (38-126); Blood Urea Nitrogen 13 mg/dl (9-20); Calcium 9.3 mg/dl (8.4-10.2); Carbon Dioxide 29 mmol/L (22-30); Chloride 102 mmol/L (98-107); Estimated Creatinine Clearance 115 ml/min; Glucose 171 mg/dl (70-99); Potassium 4.8 mmol/L (3.5-5.1); Sodium 136 mmol/L (135-145); Total Protein 6.3 g/dl (6.3-8.2); eGFR > 60.00
--- NOTE | 2025-05-01 14:48 | CM ---
Chart reviewed. Post op, partial fourth ray amputation of the left foot. WB in wedged shoe only
PO abx
Therapy rec home PT at d/c. Discussed w/ patient who declined, patient stated he can do therapy on his own. CM encouraged patient if he should change his mind, he can consult his PCP
Plan: Home, no needs
--- NOTE | 2025-05-01 15:21 | CARDSERVLU ---
Echocardiogram with Lumason completed after protocol screening completed. Allergies verified.
Patent IV site: __existing 22P LW/FA___
IV site flushed with 0.9% NaCl pre and post administration.
Diluted bolus method utilized to enhance visualization of ventricular laureano.
Total volume given: __3.5__ mL in divided doses under direction echosonographer.
Patient tolerated all procedures well without complications.
[2025-05-01 15:30] VITALS: BP 106/78
--- NOTE | 2025-05-01 16:52 | W.DCSUMMARY ---
Discharge Summary
Discharge Data
Date of Admission: 04/27/25
Date of Discharge: 05/01/25
-
Pending Results: No
Hospital Course
Discharging Physician : Dr. Valentín Streeter, Dr. Ghada Nixon
Disposition : Home
Primary care physician : Dr. Elian Fink ([facility] Residency Office)
Principal Discharge diagnosis :
Infected Left Diabetic Foot Wound with Cellulitis and likely Osteomyelitis of 4th Toe
Tachycardia
Chronic Discharge diagnosis :
Diabetes Mellitus, Type II with Diabetic Neuropathy
Hyperlipidemia
Tobacco use disorder
Hospital Course :
64-year-old male with a past medical history of hypertension, hyperlipidemia, diabetes mellitus with diabetic neuropathy came to the ED due to worsening left foot wound infection. This wound has been going on for extended period time, around couple
weeks. While at where his work his wound had started to drain it soaked through his dressing. It got worse following that with increased redness that extended up to his leg. He had been feeling feverish at home as well. 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
appointment with his steam gigger who sent him to the ED for evaluation.
In the ED he was found to have dislocation of the proximal interphalangeal joint of the left fourth toe with deformity of the head of the proximal phalanx of the fourth toe likely related to osteomyelitis alongside of left third toe/chronic
nonhealing wound with osteomyelitis. Patient was started on vancomycin and Zosyn, blood cultures were drawn, podiatry and vascular surgery were consulted, and IV fluids were started. Patient underwent MRI which confirmed osteomyelitis in the left
fourth toe. Underwent partial fourth ray amputation of the left foot under local/IV sedation. Patient's wound cultures grew Pseudomonas and Enterococcus. Infectious disease were consulted and patient was switched to oral ciprofloxacin. Following
successful surgery, patient developed tachycardia and was placed on telemetry for monitoring. Overnight seems to have some instances of atrial tachycardia but returned back to his normal heart rhythm and rate. Cardiology were consulted and
echocardiogram was ordered which did not show any acute concerns.
His diabetes was managed with just insulin sliding scale. His tobacco use disorder was managed with nicotine patches. Discussed tobacco cessation as well. Patient continued to be on statin therapy for his hyperlipidemia.
Patient was placed on a Holter monitor and will follow up with Cardiology in 2 weeks to look at results from the monitor. He also underwent lower extremity ultrasound as per vascular surgery's recommendations which did not show any significant
stenosis.
Patient was discharged home with instructions to follow up with podiatry in the outpatient setting within the week. Patient will continue with Ciprofloxacin for 2 more days to finish the course of antibiotics. Discussed with him that he should
follow up with the Residency Practice within 1-2 weeks.
Important imaging findings :
MR Left Le Joint W W/o
1. ACUTE OSTEOMYELITIS in the PHALANGES of the LEFT 4TH TOE.
2. Chronic osseous erosions in the phalanges of the 2nd toe.
3. Previous amputation of most of the 3rd toe.
4. Mild hallux valgus deformity and moderate arthritis of the left 1st MTP joint.
5. Severe diffuse acute on chronic muscle denervation in the left foot and lower leg.
6. Chronic healed fractures of the distal tibia and fibular diaphyses.
7. Full-thickness longitudinal split tear of the peroneus brevis tendon.
Post surgery X-ray Left extremity:
Interval resection of the fourth ray to the level of the head of the fourth metatarsal. Postoperative edema and soft tissue gas.
No acute fracture or dislocation. Mild hallux valgus. Mild to moderate osteoarthrosis of the first metatarsophalangeal joint and hallux sesamoid complex other chronic findings appear similar to previous radiographic examinations.
US Periph Art LOWER Ext w JORGITO
1. Left ankle brachial index 1.0, compared to 1.17 on prior. Left toe brachial index 1.08. Scattered calcified plaque without focal hemodynamically significant stenosis demonstrated.
2. Right ankle-brachial index 1.12, compared to 1.12 on prior. Right toe brachial index 0.79. Scattered calcified plaque without focal hemodynamically significant stenosis demonstrated.
Procedure findings :
Echocardiogram (05/01/2025):
1. Normal biventricular size and function without wall motion abnormalities.
2. LVEF is 60% by Kendall's method of discs.
3. No significant valvular disease.
4. Normal estimated PASP at 22 mmHg.
5. No prior study available for comparison.
Discharge Plan
-
Patient Disposition: Home (Routine Discharge)
Discharge Diagnosis/Procedures: Infected Left Diabetic Foot Wound with Cellulitis and likely Osteomyelitis of 4th Toe
Tachycardia
Diabetes Mellitus, Type II with Diabetic Neuropathy
Hyperlipidemia
Tobacco use disorder
Condition: Fair
Diet: Diabetic, Carb Controlled
Activity: Other activity
Additional Activity: Follow directions as per Podiatry. Weight bearing in surgical shoe
Driving Restrictions: As prior to admission
Bathing Restrictions: None
Referrals:
Gama Fink MD, Resident [Family Practice Resident Year3, General] - in less than 1 week
Referral Note: Please follow up with the residency practice following your discharge within the week
Juan Wong DPM [Specified Professional Personl, Podiatry] - in less than 1 week
Referral Note: Please follow up with Podiatry within the week for follow up regarding your left foot
Darrick Gomez MD [Active, Cardiology] - in one to two weeks
Referral Note: Please follow up with Cardiology in 1-2 weeks regarding your increased heart rate
Additional Discharge Medication Instructions: Please follow up with Cardiology in 1-2 weeks regarding your increased heart rate. Continue wearing Holter monitor and review results with Cardiology at that time.
Please continue Ciprofloxacin 500mg twice a day for 2 more days
Please continue following Podiatry instructions regarding your left foot. Please continue wearing the surgical shoe as directed.
Please follow up with Podiatry within the week for follow up regarding your left foot
Prescriptions:
New
ciprofloxacin HCl 500 mg Tablet
500 mg PO BID 3 Days Qty: 6 0RF
Continued
therapeutic multivitamin Tablet
1 tab PO HS
zinc sulfate 50 mg zinc (220 mg) Tablet
50 mg PO HS Qty: 0
ebzwg-vl-[id number]-[id number]-iqz-ybsiomn-ast [MegaRed [place]-3 Krill Oil] 1,000-230-60 mg Capsule
1 cap PO HS Qty: 0
metformin 500 mg Tablet
1,000 mg PO BID@0800,1700 Qty: 60 2RF
garlic 100 mg Tablet
100 mg PO HS Qty: 0 0RF
loperamide 2 mg Capsule
2 mg PO BIDPRN PRN (Reason: diarrhea)
atorvastatin [Lipitor] 10 mg Tablet
10 mg PO DAILY
aspirin 500 mg Tablet
500 mg PO DAILY
dapagliflozin propanediol [Farxiga] 10 mg Tablet
10 mg PO DAILY
Mounjaro 5 mg/0.5 mL Pen Injector
5 mg SC TH
Discharge Orders:
Discharge Patient (As Directed); Ordered 05/01/25
Ordered By: Ghada Nixon
Discharge Date and Time
Print Language: CROATIAN
[2025-05-01 17:03] LABS: Glucose - Point of Care 155 mg/dl (70-99)
--- NOTE | 2025-05-01 18:28 | PTCARENOTE ---
Per discharge instructions patient is to follow up with cardiology regarding holter monitor. Holter monitor was not placed on patient inpatient. Resident and cardiology were contacted. Instructed by resident to discharge patient and have patient
contact cardiology op regarding holter monitor placement. Instructions given.
== END 2025-05-01 19:10 | disposition home or self-care (01) | DRG 617 ==
LOC: 4 EAST ACU 15:53
PROVIDERS: Physician Assistant; Physician Assistant Medical; ADMITTING PHYSICIAN Hospitalist; ATTENDING PHYSICIAN Hospitalist; CONSULT PHYSICIAN Internal Medicine Cardiovascular Disease; CONSULT PHYSICIAN Podiatrist Foot & Ankle Surgery; CONSULT PHYSICIAN Surgery Vascular Surgery; EMERGENCY PHYSICIAN Emergency Medicine; FAMILY PHYSICIAN Psychologist; OTHER PHYSICIAN Student in an Organized Health Care Education/Training Program
PROC: 0Y6N0ZD Detachment at Left Foot, Partial 4th Ray, Open Approach (ICD-10-PCS; 2025-04-29)
DX: E11.69 Type 2 diabetes mellitus with other specified complication (principal); I47.19 Other supraventricular tachycardia; L03.116 Cellulitis of left lower limb; M86.172 Other acute osteomyelitis, left ankle and foot; E11.22 Type 2 diabetes mellitus with diabetic chronic kidney disease; E11.42 Type 2 diabetes mellitus with diabetic polyneuropathy; E78.00 Pure hypercholesterolemia, unspecified; E88.810 Metabolic syndrome; I12.9 Hypertensive chronic kidney disease with stage 1 through stage 4 chronic kidney disease, or unspecified chronic kidney disease; B96.5 Pseudomonas (aeruginosa) (mallei) (pseudomallei) as the cause of diseases classified elsewhere; B95.2 Enterococcus as the cause of diseases classified elsewhere; E11.621 Type 2 diabetes mellitus with foot ulcer; N18.1 Chronic kidney disease, stage 1; M19.072 Primary osteoarthritis, left ankle and foot; L97.529 Non-pressure chronic ulcer of other part of left foot with unspecified severity; F12.90 Cannabis use, unspecified, uncomplicated; M20.12 Hallux valgus (acquired), left foot; F17.210 Nicotine dependence, cigarettes, uncomplicated; Z79.82 Long term (current) use of aspirin; Z79.84 Long term (current) use of oral hypoglycemic drugs; Z79.85 Long-term (current) use of injectable non-insulin antidiabetic drugs
CPT/HCPCS: 73620; 73630; 73723; 80048; 80053; 80202; 82962; 85025; 85027; 86140; 87040; 87070; 87071; 87077; 87147; 87176; 87186; 87205; 88304; 88305; 88311; 93005; 93306; 93922; 93925; 96365; 96375; 97162; 97164; 97166; 99285; A9575; Q9950

== ENCOUNTER → 2025-08-07 12:33 | Outpatient (REF) | payer BC, SELFPAY ==
[2025-08-08 08:42] LABS: Glycohemoglobin (HgbA1c) 6.3 % (4.0-5.9)
== END ==
LOC: RAD 12:33
PROVIDERS: ATTENDING PHYSICIAN Podiatrist Foot & Ankle Surgery; REFERRING PHYSICIAN Student in an Organized Health Care Education/Training Program
DX: M86.171 Other acute osteomyelitis, right ankle and foot (principal); R60.0 Localized edema; E11.42 Type 2 diabetes mellitus with diabetic polyneuropathy
CPT/HCPCS: 36415; 73630; 83036; 83880

== ENCOUNTER 2025-08-09 17:35 | Inpatient (IN) | payer BC, SELFPAY ==
[2025-08-09] VITALS (12 sets, daily range): BP systolic 107–128; BP diastolic 65–74
--- NOTE | 2025-08-09 16:18 | ED.GENMED ---
History of Present Illness
<Derrell Fowler MD - Last Filed: 08/09/25 16:24>
General
Chief Complaint: Skin Problem
Source: patient
Exam Limitations: none
Time Seen by Provider: 08/09/25 16:00
Nursing documentation reviewed up to this point in time: agreed with
<Salina Heaton PA-C - Last Filed: 08/09/25 16:48>
History of Present Illness
History of Present Illness:
Eduard is a 64-year-old male with past medical history of diabetes who had an outpatient foot x-ray 2 days ago that showed osteomyelitis of this right second toe and was sent in by podiatry today for planned operative amputation. Denies any
systemic symptoms including fever, chills, nausea, vomiting. There are some drainage from the wound that he reports is unchanged.
Phy Exam
<Salina Heaton PA-C - Last Filed: 08/09/25 16:48>
General Physical Exam
General Presentation: well appearing and no apparent distress
General Skin: warm and dry
General Habitus: normal
General Mental: alert
General Hydration: appears well hydrated
ENT Exam
ENT Exam: EOMI, pharynx normal, neck supple and normocephalic
Eye Exam
Eye Exam: PERRL, cornea clear and conjunctiva normal
Cardiovascular Exam
Cardiovascular Exam: regular rate/rhythm, no edema, no murmur and normal peripheral pulses
Pulmonary Exam
Pulmonary Exam: lungs clear, no respiratory distress, no rales, no crackles, no rhonchi, no stridor, no wheezing and no cough
Gastrointestinal Exam
Gastrointestinal Exam: normal bowel sounds, non tender, soft, no organomegaly, no pulsatile mass and non distended
Neurological Exam
Neurological Exam: alert, oriented x3, no motor deficits and speech normal
Musculoskeletal Exam
Musculoskeletal Exam: full ROM, no edema and other
Skin Exam
Skin Exam: normal color, warm/dry, no rash and no petechia
Psychiatric Exam
Psychiatric Exam: normal mood/affect
Scores
<Derrell Fowler MD - Last Filed: 08/09/25 16:24>
Heart Failure Risk
Heart Failure Risk Score: Not Applicable
Heart Score for Chest Pain Patients
STEMI patient?: Not applicable
Withdrawal Assessment of Alcohol
Withdrawal Assessment Completed?: Not applicable
Course
<Derrell Fowler MD - Last Filed: 08/09/25 16:24>
Orders/Labs/Results
Orders:
Orders
08/09/25 16:24
Piperacillin/Tazo 3.375 Gram [Zosyn] 3.375 gram in 50 ml IV NOW
Vancomycin 1 Gram/200 ml [Vancocin] 1 gram in 200 ml IV PRE PROCEDURE
08/09/25 16:31
Wound Culture [Wound/Abscess/Other Culture] Urgent
NAYELI Source: Toe
Specimen Description:
Date Specimen was Collected: 08/09/25
Time Specimen was Collected: 16:30
08/09/25 16:37
BMP [Basic Metabolic Panel] Urgent
CBC/With Diff [Complete Blood Count/With Diff] Urgent
08/09/25 16:38
Bupivacaine Pf 0.5% [Sensorcaine 0.5% Single Dose] 30 ml .ROUTE .STK-MED ONE
Lidocaine Mpf 1% [Xylocaine-Mpf 1% Vial] 30 ml .ROUTE .STK-MED ONE
Vital Signs
Initial and Last Documented VS:
Initial Vital Signs
Temp Pulse Resp BP Pulse Ox
37.2 C 84 20 115/74 98
08/09/25 14:42 08/09/25 14:42 08/09/25 14:42 08/09/25 14:42 08/09/25 14:42
Last Documented Vital Signs
Temp Pulse Resp BP Pulse Ox
36.6 C 73 18 117/71 99
08/09/25 16:00 08/09/25 16:00 08/09/25 16:00 08/09/25 16:08 08/09/25 16:20
<Salina Heaton PA-C - Last Filed: 08/09/25 16:48>
Orders/Labs/Results
Orders:
Orders
08/09/25 16:24
Piperacillin/Tazo 3.375 Gram [Zosyn] 3.375 gram in 50 ml IV NOW
Vancomycin 1 Gram/200 ml [Vancocin] 1 gram in 200 ml IV PRE PROCEDURE
08/09/25 16:31
Wound Culture [Wound/Abscess/Other Culture] Urgent
NAYELI Source: Toe
Specimen Description:
Date Specimen was Collected: 08/09/25
Time Specimen was Collected: 16:30
08/09/25 16:37
BMP [Basic Metabolic Panel] Urgent
CBC/With Diff [Complete Blood Count/With Diff] Urgent
08/09/25 16:38
Bupivacaine Pf 0.5% [Sensorcaine 0.5% Single Dose] 30 ml .ROUTE .STK-MED ONE
Lidocaine Mpf 1% [Xylocaine-Mpf 1% Vial] 30 ml .ROUTE .STK-MED ONE
Vital Signs
Initial and Last Documented VS:
Initial Vital Signs
Temp Pulse Resp BP Pulse Ox
37.2 C 84 20 115/74 98
08/09/25 14:42 08/09/25 14:42 08/09/25 14:42 08/09/25 14:42 08/09/25 14:42
Last Documented Vital Signs
Temp Pulse Resp BP Pulse Ox
36.6 C 73 18 117/71 99
08/09/25 16:00 08/09/25 16:00 08/09/25 16:00 08/09/25 16:08 08/09/25 16:20
<Salina Heaton PA-C - Last Filed: 08/09/25 16:48>
MDM/Problems Addressed
Differential Diagnosis Includes:
Wound on second toe with drainage patient with x-ray and exam consistent with osteomyelitis. Seen by podiatry who is planning on operative intervention this evening. Reached out to Dr. Blue regarding the patient and he states that the OR will be
calling to the patient shortly. He requested the patient be admitted to the hospitalist. Hospitalist contacted for admission.
Vancomycin and Zosyn ordered. Lab work ordered.
<Derrell Fowler MD - Last Filed: 08/09/25 16:24>
*Pulse Oximetry
SaO2: 99
Oxygen Mode of Delivery: Room air
<Salina Heaton PA-C - Last Filed: 08/09/25 16:48>
*Pulse Oximetry
Patient hypoxic: no
*Critical Care Note
Total Time (30-74mins, 75-104mins- exclusive of procedures): Not Applicable
ED Attending Note
<Derrell Fowler MD - Last Filed: 08/09/25 16:24>
ED Attending Note
Patient seen and examined by attending physician: Yes
ED Attending Note:
I have seen and evaluated the patient with a [id number] encounter. I have spoken to the advance practicer provider and involved in the medical history, the physical exam, medical decision making.
Evaluation and management service: agree unless noted differently below.
Results interpretation: agree unless noted differently below.
Focused HPI: 64-year-old male with history as noted presents to the ER from podiatry office�sent in with plan for amputation of the right second toe. He has a chronic wound on the toe says it has had increased drainage and swelling. He had
outpatient x-ray 2 days ago was seen in the podiatry office and was recommended to come to the ER tonight with plan for the OR this evening. He denies fevers or chills or any other acute complaints. His machine shop inspector is Dr. Juan Wong.
Physical exam:
General: Well appearing and non-toxic
HEENT: protecting airway
Neck: appears supple
CV: No evidence of cyanosis
Resp: No accessory muscle use
Abd: Non-distended
Extremities: No deformities
Neuro: Alert
Psych: Normal affect
Skin: Patient has a large wound on the medial aspect of the right second toe with significant swelling, erythema, foul odor and drainage
Medical Decision Makin-year-old male presents to the ER with infected right toe wound and osteomyelitis�seen by outpatient machine shop inspector and sent to the ER for admission for OR. PA discussed case with machine shop inspector plan for OR tonight. Cultures
sent off, IV antibiotics ordered.
-
Portions of this chart may have been created with voice recognition software.� Occasional wrong word or��sound alike� substitutions may have occurred due to the inherent limitations of voice recognition software.
Discharge Plan
Departure
Patient Disposition: Admit
Date of Disposition: 08/09/25
Time of Disposition: 16:18
Presentation/result/management discussed w/ accepting MD/DO: Hospitalist
Discharge Problem:
Osteomyelitis, Diabetes, Diabetic foot ulcer
Prescriptions:
No Action
therapeutic multivitamin Tablet
1 tab PO HS
zinc sulfate 50 mg zinc (220 mg) Tablet
50 mg PO HS Qty: 0
flsjw-ax-9-jjg-shk-hfprwda-ast [MegaRed [place]-3 Krill Oil] 1,000-230-60 mg Capsule
1 cap PO HS Qty: 0
metformin 500 mg Tablet
1,000 mg PO BID@0800,1700 Qty: 60 2RF
garlic 100 mg Tablet
100 mg PO HS Qty: 0 0RF
loperamide 2 mg Capsule
2 mg PO BIDPRN PRN (Reason: diarrhea)
atorvastatin [Lipitor] 10 mg Tablet
10 mg PO DAILY
aspirin 500 mg Tablet
500 mg PO DAILY
dapagliflozin propanediol [Farxiga] 10 mg Tablet
10 mg PO DAILY
Mounjaro 5 mg/0.5 mL Pen Injector
5 mg SC TH
Interventions
Interventions:
[facility] Fall Risk Assessment Tool Last Done: 08/09/25 14:39
*Risk Screen - Suicide (C-SSRS) Last Done: 08/09/25 14:42
ED-Skin Assessment Last Done: 08/09/25 16:13
Discharge Date and Time
Print Language: CITIZEN OF [place]
--- NOTE | 2025-08-09 16:29 | HPS.HSE ---
Addendum entered and electronically signed by Vinny Abdullahi MD 08/09/25 16:58:
I saw and examined the patient.
The WALLPAPER CONSULTANT's note was reviewed and I agree with the note.
Comment:
4-year-old male with a past medical history of hypertension, hyperlipidemia, diabetes mellitus with diabetic neuropathy came to the ED due to worsening right second toe infection. Patient is a was managed outpatient by the straw boss and was using
topical antibiotic treatment. Continued to have increased drainage from the wound and podiatry recommended for further surgical management recommend patient to come to the ER. Patient denied any pain to the right foot. Denied any symptoms of
fever, chills, nausea, vomiting. Stated of significant drainage from the second toe and used to seep through his socks. In the ER wound culture was done. Pending labs. EKG also not performed. Patient was rushed to the OR.
General: Well Developed, Well Nourished, Comfortable and Conversant
HEENT: Normocephalic and Atraumatic
Respiratory: Clear to Auscultation and Non Labored Respirations
Cardiac: Regular Rhythm and S1/S2
GI: Soft, Nontender and Nondistended
Musculoskeletal: Right foot second toe significant swelling and drainage from open wound noted
Skin: Warm and Dry
Neuro: Awake, Alert, Oriented and AO x 3
Psych: Calm
Impression
Right second toe infected wound likely severe acute osteomyelitis
Atrial tachycardia
Diabetes mellitus
Diabetic neuropathy
Hyperlipidemia
Tobacco use disorder
Plan
Patient underwent to the operating room urgently
CBC without leukocytosis. BMP pending.
Start patient broad-spectrum antibiotics
Will await OR cultures unclear if bone biopsy will be performed.
Postop orders per straw boss
Restart home medication
Strict glycemic control
DVT prophylaxis once cleared from surgical perspective
Original Note:
Family Physician
-
Family Physician:
Chief Complaint
-
left second toe wound infection
History of Present Illness
64-year-old male with history of hypertension, hyperlipidemia, bicuspid aortic valve, osteomyelitis, type 2 diabetes, CKD presented to us with right second toe infection. patient stated right second has chronic wound, which has been draining for
past few weeks. he was putting antibiotic ointment. he was getting dressing change by his podiatry. He had outpatient x-ray 2 days ago was seen in the podiatry office and was recommended to come to the [facility] with plan for the OR this evening.
He denies fevers or chills, BROWN, dizzy or syncope. denied chest pain, sob. denied abdominal pain,n,v,d. denied dysuria or hematuria.
admitting for further management.
Medical History
Past Medical History
Past Medical History: Reports Other
Additional Past Medical History:
Diabetes, hypertension, hyperlipidemia, bicuspid aortic valve, osteomyelitis, CKD
Past Surgical History: Reports Other
Additional Past Surgical History:
Fifth metatarsal amputation, left 3rd and 4th toes removed
Social History
Tobacco: Smoker (10 cigarettes' daily)
Alcohol: None
Family History
Family History: Not pertinent
Allergies / Home Medications
Allergies reflects when Allergies were last updated in [employer].
Home Medications with original date entered in [employer]
Allergy/Medication List:
Allergies
Allergy/AdvReac Type Severity Reaction Status Date / Time
No Known Allergies Allergy Verified 08/09/25 14:42
Home Medications
krill 1,000 mg-omega-3 230 mg-dha 60 vq-vyt-ayhnwzdwv-astaxan capsule (MegaRed [place]-3 Krill Oil) 1 cap PO HS Supplement ##0 11/03/23
therapeutic multivitamin 1 tab PO HS Supplement 11/03/23
zinc sulfate 50 mg zinc (220 mg) tablet 50 mg PO HS Supplement ##0 11/03/23
garlic 100 mg tablet 100 mg PO HS Supplement #0 tabs 07/28/24
metformin 500 mg tablet 1,000 mg (2 x 500 mg) PO BID@0800,1700 Diabetes #60 tabs 07/28/24
aspirin 500 mg tablet 500 mg PO DAILY Pain 04/27/25
atorvastatin 10 mg tablet (Lipitor) 10 mg PO DAILY High Cholesterol 04/27/25
dapagliflozin propanediol 10 mg tablet (Farxiga) 10 mg PO DAILY Diabetes 04/27/25
loperamide 2 mg capsule 2 mg PO BIDPRN PRN diarrhea 04/27/25
tirzepatide 5 mg/0.5 mL subcutaneous pen injector (Mounjaro) 5 mg SC TH Diabetes 04/27/25
ciprofloxacin HCl 500 mg tablet 500 mg PO BID 3 days #6 tabs 05/01/25
Review of Systems
-
Constitutional: Reports No Symptoms
EENT: Reports No Symptoms
Respiratory: Reports No Symptoms
Cardiac: Reports No Symptoms
Abdomen/GI: Reports No Symptoms
: Reports No Symptoms
Musculoskeletal: Reports No Symptoms
Skin: Reports Other (right second toe wound)
Neurological: Reports No Symptoms
Endocrine: Reports No Symptoms
Hematologic/Lymphatic: Reports No Symptoms
Psych: Reports No Symptoms
Physical Exam
Vital Signs
Vital Signs
Temp Pulse Resp BP Pulse Ox
97.9 F 73 18 117/71 99
08/09/25 16:00 08/09/25 16:00 08/09/25 16:00 08/09/25 16:08 08/09/25 16:20
Physical Exam
General: Well Developed, Well Nourished and No Apparent Distress
HEENT: NormoCephalic, Moist mucous membranes and Atraumatic
Respiratory: Clear
Cardiac: S1/S2 and Regular Rhythm; No Murmur or Rub
GI: Soft, Non Tender, Non Distended and Normal Bowel Sounds; No Organomegaly
Rectal: Deferred by Provider
Musculoskeletal: No Clubbing, No Cyanosis and No Edema
Skin: Rash and Other (right second toe with pus drainage. )
Neuro: AO x 3 and Nonfocal/grossly intact
Psych: Calm
Impression/Plan
-
# Right second toe osteomyelitis
- Plan 4 OR for amputation
- Vanco and Zosyn continue
-Wound culture sent from ER
- Podiatric consulted
# Diabetes Mellitus, Type II with Diabetic Neuropathy
- Holding metformin
- Holding dapagliflozin
- Continue insulin sliding scale, low resistance
# Hyperlipidemia
-continue atorvastatin
# Tobacco Use Disorder
- denied nicotine patch
DVT prophylaxis: scd
Full Code
[2025-08-09 16:51] LABS: Hematocrit 38.2 % (39.0-52.0); Hemoglobin 12.7 g/dL (13.0-18.0); Mean Corp Hgb Conc. 33.2 g/dL (33.0-37.0); Mean Corpuscular Volume 84.7 fL (80.0-94.0); Nucleated Red Blood Cells % 0 % (-); Platelet Count 356 10^3/uL (130-400); Red Cell Dist. Width 14.6 % (11.5-14.5)
--- NOTE | 2025-08-09 16:53 | W.CS.POD ---
Addendum entered and electronically signed by Juan Wong DPM 08/09/25 18:38:
Assessment:
T2 Diabetes Mellitus with peripheral neuropathy and history of multiple digital amputations.
Acute osteomyelitis and cellulitis of the right second toe
Hyperlipidemia
HTN
Plan:
Patient to OR today for Excision/Removal of infected and non-viable skin, soft tissue and bone, right foot.
Patient consent for the aforementioned surgical procedure obtained at bedside.
The patient understands the benefits, risks and possible complications of the proposed procedure, as well as the potential need for further surgery.
Addendum entered and electronically signed by Juan Wong DPM 08/09/25 17:14:
08/07/25 XRAY Right foot:
There is severe osseous destruction of the head and distal shaft of the proximal phalanx of the second toe. The head of the proximal phalanx is completely destroyed. There is osseous erosion in radiolucency in the middle phalanx. The proximal
interphalangeal (PIP) joint of the second toe is completely destroyed. There is no evidence for acute osteomyelitis in the base of the proximal phalanx of the second toe.
There has been previous amputation of the fifth toe and most of the fifth metatarsal with only the fifth metatarsal base remaining. There is a chronic healed fracture of the proximal fourth metatarsal shaft which has healed with moderate to severe
deformity.
There is a severe hallux valgus deformity.
VSS, Afebrile.
LE Exam: Pedal pulses palpable bilaterally. Abnormal skin texture, decreased turgor, normal temperature, and absent digital hair growth, bilaterally.
There is severe edema edema of the entire right second toe, with local erythema/cellulitis. A 1cm round full skin, soft tissue thickness wound is present along the medial aspect of the right second toe overlying and communicating with the PIPJ. No
malodor, purulence/discharge from the wound. The toe is dislocated laterally and dorsally at the PIPJ suggesting destruction of the joint.
Significant sensory loss involving the entire forefoot and midfoot to a lessor degree, bilaterally.
Right foot exhibits prior fifth ray amputation. Left foot partial third and fourth ray amputations.
Original Note:
Consult Summary - Podiatry
-
This patient is a 64 year old diabetic, neuropathic male, well known to my practice, admitted today from my office for an infection of the right second toe with acute osteomyelitis. The patient initially developed the wound approximately 6-8 weeks
ago when wearing a new pair of shoes and despite regular visits, local wound care, and off loading of severe forefoot deformity, this non healing wound progressed to an infection directly to bone. Following XRAY findings consistent with acute
osteomyelitis of the second toe, the patient was evaluated today and sent directly to the ED for admission and anticipated debridement/amputation.
Remainder of consult dictated.
[2025-08-09 17:06] LABS: Blood Urea Nitrogen 20 mg/dl (9-20); Calcium 9.0 mg/dl (8.4-10.2); Carbon Dioxide 23 mmol/L (22-30); Chloride 106 mmol/L (98-107); Estimated Creatinine Clearance > 125 ml/min; Glucose 86 mg/dl (70-99); Potassium 4.3 mmol/L (3.5-5.1); Sodium 138 mmol/L (135-145); eGFR > 60.00
[2025-08-09 18:36] LABS: Glucose - Point of Care 108 mg/dl (70-99)
--- NOTE | 2025-08-09 18:38 | W.PN.UPDATE ---
Update Note
Progress Note Update
Post Op:
Partial right second toe amputation for the treatment of acute osteomyelitis.
EBL 1cc
Prognosis: good
Patient tolerated anesthesia and the procedure well. Patient brought to recovery by anesthesia an surgeon with vital signs stable and vascular status intact to the right LE.
Post-OP condition: stable.
Specimen of 'infected bone' sent to [facility]. Specimen of 'clean bone margin' sent to Path
PO orders:
XRAYS right foot 3 views
NWB on the right foot for 24 hours.
Surgical shoe to bedside.
[2025-08-09 21:24] LABS: Glucose - Point of Care 135 mg/dl (70-99)
--- NOTE | 2025-08-09 21:30 | PHA.VAN.IN ---
Addendum entered and electronically signed by Helga Luke RPH 08/10/25 09:48:
Patient has prior dosing experience
Vanc 1250mg Q12H provided the following patient-specific PK in Apr 2025
(patient had similar renal function and weight)
- Assessment - Therapeutic Drug Monitoring
Extrapolated Cmax (mcg/mL): 29.9
Peak level was drawn: Appropriately (drawn ~2.7H)
Extrapolated Cmin (mcg/mL): 14
Trough Drawn: Appropriately
Levels were drawn: At steady state (levels drawn after 4th maintenance dose - may not fully be at 4-5 half-lives)
Calculated AUC (mcg*h/mL): 355
Calculated ke: 0.0786
Calculated half life (H): 8.8
Calculated Vd (L): 90 (~1.1 L/kg)
Calculated Vanc CL (ml/min): 117
May still have additional accumulation but would like remain slightly subtherapeutic
Vanc 1500mg Q12H would predict AUC 451, Cmax 27.4, Cmin 12 for future dosing considerations
Original Note:
Assessment
- Assessment
Renal Function: Appears similar to baseline
Concomitant Antimicrobials: PIPERCILLIN/TAZO
AUC Dosing Plan
- Dosing Variables
Dosing Weight (kg): 77.9
Dosing CrCl (ml/min): 125
Vd coefficient (L/kg): 0.7
- Empiric Dosing
Initial / Loading Dose: VANCOMYCIN 1000 MG IV ~ 1730 per Anesthesia Report.
Maintenance Regimen: VANCOMYCIN 1250 MG IV Q12H
Estimated AUC (mcg*h/mL): 458
Estimated Peak (mcg*h/mL): 31.5
Estimated Trough (mcg/ml): 10.1
Estimated Half Life (H): 6.4
- Monitoring
No levels ordered at this time: Please consider levels in next few days. pharmacy will follow.
Pharmacokinetics Vancomycin I
- -
Patient Age: 64
Patient Sex: Male
Vancomycin Day #: 1
Indication: Skin And Soft Tissue
Requesting Provider: John CHOPRA
Height / Weight:
Height 5 ft 11 in
Actual Weight 77.9 kg
Pertinent Past Medical History: Type II Diabete pt w. osteomyelitis and cellulitis of the right second toe.
- Vital Signs / Lab Results
Temp Pulse Resp BP Pulse Ox
98.4 F 74 17 128/71 97
08/09/25 20:00 08/09/25 20:00 08/09/25 20:00 08/09/25 20:00 08/09/25 20:00
Lab Results - Hematology
08/09/25
16:37
WBC 10.6
Lab Results - Chemistry
08/09/25
16:37
BUN 20
Creatinine 0.6 L
Estimated Creat Clear > 125
Microbiology Results
08/09/25 16:31 Gram Stain - Preliminary
Toe
08/09/25 18:01 Gram Stain - Preliminary
Toe
[2025-08-09] MEDS: ZOSYN 50 IV (22:33)
[2025-08-10 02:35] VITALS: BMI 24.8
[2025-08-10 03:22] VITALS: BP 124/76
[2025-08-10] MEDS: ZOSYN 50 IV ×2 (04:50→10:08)
[2025-08-10] MEDS: VANCOCIN 275 MG IV (05:58)
[2025-08-10 07:26] LABS: Glucose - Point of Care 108 mg/dl (70-99)
[2025-08-10] MEDS: NOVOLOG FLEXPEN-LOW RESISTANCE SC (07:29)
[2025-08-10 07:30] VITALS: BP 137/74
[2025-08-10 08:20] LABS: Hematocrit 39.8 % (39.0-52.0); Hemoglobin 13.3 g/dL (13.0-18.0); Mean Corp Hgb Conc. 33.4 g/dL (33.0-37.0); Mean Corpuscular Volume 84.3 fL (80.0-94.0); Platelet Count 377 10^3/uL (130-400); Red Cell Dist. Width 14.5 % (11.5-14.5)
[2025-08-10 09:03] LABS: Blood Urea Nitrogen 16 mg/dl (9-20); Calcium 8.8 mg/dl (8.4-10.2); Carbon Dioxide 20 mmol/L (22-30); Chloride 104 mmol/L (98-107); Estimated Creatinine Clearance > 125 ml/min; Glucose 100 mg/dl (70-99); Potassium 4.7 mmol/L (3.5-5.1); Sodium 137 mmol/L (135-145); eGFR > 60.00
[2025-08-10] MEDS: LIPITOR 10 MG PO (09:33)
--- NOTE | 2025-08-10 09:46 | PHA.VAN.FU ---
Vancomycin Assessment / Plan
- Assessment
Renal Function: Stable
WBC's are: WNL
In the past 24 hrs, patient has been: Afebrile
Concomitant Antimicrobials: piperacillin/tazobactam
- Dosing Plan
Adjust Regimen to: Vanc 1500mg Q12H based on prior experience
New Regimen Predicts: AUC (451), Peak (27), Trough (12)
- Monitoring Plan
No level(s) ordered at this time: consider levels in next few days
- Follow Up
Pharmacy will continue to follow.
Vancomycin Follow UP
- -
Patient Age: 64
Patient Sex: Male
Vancomycin Day #: 2
Indication: Skin And Soft Tissue
Requesting Provider: John CHOPRA
Pertinent Antimicrobial Allergies:
NKDA
Height / Weight:
Height 5 ft 11 in
Actual Weight 80.739 kg
Pertinent Past Medical History: DM II
- Vital Signs / Lab Results
Temp Pulse Resp BP Pulse Ox
98.1 F 74 16 137/74 97
08/10/25 07:30 08/10/25 07:30 08/10/25 07:30 08/10/25 07:30 08/10/25 07:30
Lab Results - Hematology
08/09/25 08/10/25
16:37 07:49
WBC 10.6 9.5
Lab Results - Chemistry
08/09/25 08/10/25
16:37 07:49
BUN 20 16
Creatinine 0.6 L 0.6 L
Estimated Creat Clear > 125 > 125
Microbiology Results
08/09/25 16:31 Gram Stain - Preliminary
Toe
08/09/25 18:01 Gram Stain - Preliminary
Toe
[2025-08-10] MEDS: TYLENOL 650 MG PO (10:14)
[2025-08-10 11:20] VITALS: BP 132/71
[2025-08-10 12:15] LABS: Glucose - Point of Care 151 mg/dl (70-99)
--- NOTE | 2025-08-10 12:26 | W.PN.HOSP.TC ---
Today's Communication/Plan
-
Follow-up on the wound culture results
Continue with broad-spectrum antibiotic
Assessment / Plan
Assessment / Plan
General: Well Developed, Well Nourished, Comfortable and Conversant
HEENT: Normocephalic and Atraumatic
Respiratory: Clear to Auscultation and Non Labored Respirations
Cardiac: Regular Rhythm and S1/S2
GI: Soft, Nontender and Nondistended
Musculoskeletal: Right foot second partial amputation-covered in Sriram wrap and dressing noted
Skin: Warm and Dry
Neuro: Awake, Alert, Oriented and AO x 3
Psych: Calm
# Right second toe osteomyelitis
- Status post partial right second toe amputation
- Vanco and Zosyn continue
- Await formal wound culture from the operating room results
- Pain control
- Podiatric following-nonweightbearing for 24 hours postop. Surgical shoe per [employer] school special ed teacher
# Diabetes Mellitus, Type II with Diabetic Neuropathy
- Holding metformin
- Holding dapagliflozin
- Continue insulin sliding scale, low resistance
# Hyperlipidemia
-continue atorvastatin
# Tobacco Use Disorder
- denied nicotine patch
DVT prophylaxis: scd/start Lovenox pending clearance from secondary school special ed teacher
Full Code
Anticipated Discharge: > 48 hours
Subjective/Interval History
-
Date of Service: August 10, 2025
States of intermittent right foot pain
Objective Data
-
Labs:
Laboratory Results
08/10/25
07:49
WBC 9.5
Hgb 13.3
Hct 39.8
Plt Count 377
Sodium 137
Potassium 4.7
Chloride 104
Carbon Dioxide 20 L
BUN 16
Creatinine 0.6 L
Glucose 100 H
Calcium 8.8
Vital Signs:
Vital Signs
Temp Pulse Resp BP Pulse Ox
98.5 F 67 16 132/71 95
08/10/25 11:20 08/10/25 11:20 08/10/25 11:20 08/10/25 11:20 08/10/25 11:20
I&O
08/09/25 08/10/25 08/11/25
06:59 06:59 06:59
Intake Total 1060 / 1060
Output Total 800 / 800 400 / 400
Balance 260 / 260 -400 / -400
[2025-08-10] MEDS: ROXICODONE 5 MG PO ×2 (12:35→20:13)
[2025-08-10] MEDS: NOVOLOG FLEXPEN-LOW RESISTANCE 1 UNITS SC ×2 (13:38→18:06)
--- NOTE | 2025-08-10 14:48 | W.PN.POD ---
Today's Communication
Today's Communication
Patient stable from podiatry standpoint. Likely surgical cure.
Ok for Discharge today on PO ABx.
Assessment / Plan
-
Assessment:
S/P one day partial right second toe amputation.
Acute osteomyelitis of the right second toe.
H/O mulitple forefoot amputations.
Type 2 Diabetes Mellitus with peripheral neuropathy
Hyperlipidemia
Plan:
Patient stable from podiatry standpoint. Likely surgical cure. Anticipate discharge.
Ok to discontinue IV antibiotics. Recommend Clinda/Cipro for 10 days upon discharge. Will follow culture results.
WB in wedged surgical shoe (present in room). Patient aware of activity restrictions.
Next dressing change to be done in my office (Wednesday08/15/25)
Will follow.
Subjective
Chief Complaint
S/P one day second toe amputation, right foot for tx of acute osteomyelitis.
Subjective
Resting comfortably in bed, Mild pain at night. Denies fever, chills or sweats.
Objective
Temp Pulse Resp BP Pulse Ox
98.5 F 67 16 132/71 95
08/10/25 11:20 08/10/25 11:20 08/10/25 11:20 08/10/25 11:20 08/10/25 11:20
08/10/25 07:49
08/10/25 07:49
Vital Signs and Lab results were reviewed.
Afebrile, VSS.
WBC 9.5 down from 10.6
Dressing to right foot clean, dry and intact. Very mild blood staining.
Right forefoot is viable, capillary refill 1 second.
Surgical site with sutures intact, wound edges well apposed. No erythema, cellulitis, malodor or local signs of infection noted. Packing removed uneventfully.
PO XRAYS 08/09/25 Partial second toe amputation with base of proximal phalanx remaining. No periosteal reaction, osseous erosion.
Bone Path/Micro results: PND
[2025-08-10 15:20] VITALS: BP 135/73
[2025-08-10] MEDS: ZOSYN 100 IV (17:17)
[2025-08-10 17:26] LABS: Glucose - Point of Care 169 mg/dl (70-99)
[2025-08-10] MEDS: VANCOCIN 530 MG IV (18:05)
[2025-08-10 19:21] VITALS: BP 117/67
[2025-08-10 23:15] VITALS: BP 111/58
[2025-08-11] MEDS: ZOSYN 100 IV ×4 (00:33→18:01)
[2025-08-11] MEDS: ROXICODONE 5 MG PO ×3 (01:39→18:43)
[2025-08-11 02:08] LABS: Glucose - Point of Care 207 mg/dl (70-99)
[2025-08-11 03:10] VITALS: BP 120/66
[2025-08-11] MEDS: VANCOCIN 530 MG IV (05:35)
[2025-08-11 07:27] LABS: Glucose - Point of Care 114 mg/dl (70-99)
[2025-08-11 07:30] VITALS: BP 141/74
--- NOTE | 2025-08-11 07:35 | PTCARENOTE ---
vanco still infusing @ this time, RN of next shift made aware Zoysn needs to be administered after infusion.
[2025-08-11] MEDS: LIPITOR 10 MG PO (08:16)
[2025-08-11] MEDS: NOVOLOG FLEXPEN-LOW RESISTANCE SC ×3 (08:17→17:28)
[2025-08-11 08:57] LABS: Blood Urea Nitrogen 14 mg/dl (9-20); Calcium 8.4 mg/dl (8.4-10.2); Carbon Dioxide 25 mmol/L (22-30); Chloride 103 mmol/L (98-107); Estimated Creatinine Clearance > 125 ml/min; Glucose 102 mg/dl (70-99); Potassium 4.4 mmol/L (3.5-5.1); Sodium 134 mmol/L (135-145); eGFR > 60.00
--- NOTE | 2025-08-11 09:14 | PHA.VAN.FU ---
Vancomycin Assessment / Plan
- Assessment
Renal Function: Stable
WBC's are: WNL
In the past 24 hrs, patient has been: Afebrile
Concomitant Antimicrobials: PIPERACILLIN/TAZOBACTAM
- Dosing Plan
Continue: VANCO 1500MG Q12
- Monitoring Plan
Peak Level: 08/11 @2100
Trough Level: 08/12 @0530
- Follow Up
Pharmacy will continue to follow.
Vancomycin Follow UP
- -
Patient Age: 64
Patient Sex: Male
Vancomycin Day #: 3
Indication: Skin And Soft Tissue
Requesting Provider: John CHOPRA
Pertinent Antimicrobial Allergies:
NKDA
Height / Weight:
Height 5 ft 11 in
Actual Weight 80.739 kg
Pertinent Past Medical History: DM II
- Vital Signs / Lab Results
Temp Pulse Resp BP Pulse Ox
98.1 F 70 16 141/74 96
08/11/25 07:30 08/11/25 07:30 08/11/25 07:30 08/11/25 07:30 08/11/25 07:30
Lab Results - Hematology
08/09/25 08/10/25
16:37 07:49
WBC 10.6 9.5
Lab Results - Chemistry
08/09/25 08/10/25 08/11/25
16:37 07:49 06:43
BUN 20 16 14
Creatinine 0.6 L 0.6 L 0.6 L
Estimated Creat Clear > 125 > 125 > 125
Microbiology Results
08/09/25 18:01 Tissue Culture - Preliminary
Toe Gram Stain - Preliminary
08/09/25 16:31 Wound Culture - Preliminary
Toe Gram Stain - Preliminary
[2025-08-11 11:34] LABS: Glucose - Point of Care 110 mg/dl (70-99)
--- NOTE | 2025-08-11 13:24 | W.PN.HOSP.TC ---
Today's Communication/Plan
-
polymicrobial growth noted
IV abx
await ID input
pain control
Assessment / Plan
Assessment / Plan
General: Well Developed, Well Nourished, Comfortable and Conversant
HEENT: Normocephalic and Atraumatic
Respiratory: Clear to Auscultation and Non Labored Respirations
Cardiac: Regular Rhythm and S1/S2
GI: Soft, Nontender and Nondistended
Musculoskeletal: Right foot second partial amputation-covered in Sriram wrap and dressing noted
Skin: Warm and Dry
Neuro: Awake, Alert, Oriented and AO x 3
Psych: Calm
# Right second toe osteomyelitis/Diabetic foot ulcer
- Status post partial right second toe amputation
- Vanco and Zosyn continue
- Await formal wound culture from the operating room results
- Pain control
- Podiatric following- Surgical shoe per double end production grinder-pt has its own with his stuff. WB in shoe.
- Will ask ID for input
# Diabetes Mellitus, Type II with Diabetic Neuropathy
- Holding metformin
- Holding dapagliflozin
- Continue insulin sliding scale, low resistance
# Hyperlipidemia
-continue atorvastatin
# Tobacco Use Disorder
- denied nicotine patch
DVT prophylaxis: scd/start Lovenox pending clearance from double end production grinder
Full Code
Anticipated Discharge: 24 - 48 hours
Subjective/Interval History
-
Date of Service: August 11, 2025
denies R foot pain
Objective Data
-
Labs:
Laboratory Results
08/11/25
06:43
Sodium 134 L
Potassium 4.4
Chloride 103
Carbon Dioxide 25
BUN 14
Creatinine 0.6 L
Glucose 102 H
Calcium 8.4
Vital Signs:
Vital Signs
Temp Pulse Resp BP Pulse Ox
98.1 F 70 16 141/74 96
08/11/25 07:30 08/11/25 07:30 08/11/25 07:30 08/11/25 07:30 08/11/25 07:30
I&O
08/10/25 08/11/25 08/12/25
06:59 06:59 06:59
Intake Total 1060 / 1060 2580 / 2580
Output Total 800 / 800 2400 / 2400 225 / 225
Balance 260 / 260 180 / 180 -225 / -225
Data Reviewed
-
Total Time Spent with Patient (in minutes): 55
[2025-08-11 15:25] VITALS: BP 129/70
--- NOTE | 2025-08-11 17:08 | CON.ID ---
Consultation
-
Date/Time Consultation Requested: August 11, 2025 0905
Date/Time Consultation Performed: August 11, 2025 1700
Requesting Provider: Dr. Vinny Abdullahi
Performing Provider: Dr. Dorothea Marino
Reason for Consultation: Foot infection
Chief Complaint / Past History
Chief Complaint
diabetic foot infection
History of Present Illness
Mr Virk is a 64 year old male with well controlled DM2, neuropathy, metabolic syndrome, multiple toe amputations sent to the ED August 09 due to osteomyelitis of the right second toe. He developed a wound on the right second toe about 8
weeks ago. His toes tend to rub against each other and he would develop blisters followed by wound. The wound did not heal and continue to progress with exposed bone. His load dropper ordered x-ray which showed severe acute osteomyelitis of the
toe. On August 09, he underwent partial right second toe amputation. Per podiatry he has achieved surgical cure and can go home on a course of oral antibiotic.
Past History
Additional Past Medical History:
Diabetes Mellitus, Type II
Diabetic Neuropathy
Essential Hypertension
Hyperlipidemia
Partial Right 5th Ray - October 2023
Partial Amputation Left 3rd Toe - Jul 2024
Partial ray amputation left 4th toe 04/29/2024
Partial ampution right 2nd toe 08/09/25
Additional Past Surgical History:
Partial Right 5th Ray - October 2023
Partial Amputation Left 3rd Toe - Jul 2024
Partial ray amputation left 4th toe 04/29/2024
Allergy History:
No Known Allergies Allergy (Verified 08/09/25 14:42)
Medications Reviewed: Yes
Current Antibiotics:
Vancomycin
Zosyn
Social History
Tobacco: Smoker
Alcohol: Former
Drug: Marijuana
Family History
Family History: Not Pertinent
Review of Systems
Review of Systems
General: Negative Fever, Chills or Change in Appetite
Respiratory: Negative Dyspnea or Cough
Gasteroenterology: Negative Nausea, Vomiting or Diarrhea
Genital / Urological: Negative Dysuria or Flank Pain
All systems: All other systems were reviewed and were negative
Vital Signs
Temp Pulse Resp BP Pulse Ox
98.5 F 62 16 129/70 97
08/11/25 15:25 08/11/25 15:25 08/11/25 15:25 08/11/25 15:25 08/11/25 15:25
Physical Exam
Physical Exam
Constitutional: No Acute Distress and Comfortable
Eyes: No Conjunctival Hemorrhage and Sclera Anicteric
Cardiovascular: Regular Rate and S1/S2
Pulmonary: Clear
Gastrointestinal: Soft, Non Tender, Non Distended and Normal Bowel Sounds
Genito-Urinary: Negative CVA Tenderness
Extremities: Negative Edema
Wound: Other (Right foot dressing dry. )
Neurological: AO x 3
Lab / Diagnostic Study Results
08/10/25 07:49
08/11/25 06:43
Abs Immat Gran (auto) 0.0 10^3/uL (0-0.05) 08/09/25 16:37
Absolute Neuts (auto) 6.0 10^3/uL (1.4-6.5) 08/09/25 16:37
Absolute Lymphs (auto) 2.6 10^3/uL (1.2-3.4) 08/09/25 16:37
Absolute Monos (auto) 0.8 10^3/uL (0.1-0.6) H 08/09/25 16:37
Absolute Basos (auto) 0.0 10^3/uL (0-0.2) 08/09/25 16:37
Immature Gran % 0.3 % (0-0.5) 08/09/25 16:37
Neutrophils % 56.7 % (42.2-75.2) 08/09/25 16:37
Lymphocytes % 24.8 % (20.5-51.1) 08/09/25 16:37
Monocytes % 7.9 % (1.7-9.3) 08/09/25 16:37
Eosinophils % 10.0 % (0-6) H 08/09/25 16:37
Basophils % 0.3 % (0-2) 08/09/25 16:37
Microbiology Results
Micro:
08/09/25 16:31 Wound Culture - Preliminary
Toe Pseudomonas aeruginosa
Enterococcus species
Staphylococcus species
Gram Stain - Preliminary
08/09/25 18:01 Tissue Culture - Preliminary
Toe Pseudomonas aeruginosa
Enterococcus species
Staphylococcus species
Gram Stain - Preliminary
08/07/25 R foot xray: SEVERE ACUTE OSTEOMYELITIS in the proximal and middle phalanges of the right 2nd toe with severe osseous destruction around the PIP joint which is completely destroyed.
Assessment / Plan
# Acute R 2nd toe osteo
# DM with neuropathy
# Tobacco use disorder
- 08/09 partial amputation of R 2nd toe.
-OR bone cx: Pseudomonas, Enterococcus species, Staph species
Bone path pending
- Per Podiatry - has achieved surgical cure.
- DC Vancomycin.
- At time of dc transition Zosyn to Augmentin 875mg po bid and cipro 750mg po bid x 10 days.
- Smoking cessation
[2025-08-11 17:19] LABS: Glucose - Point of Care 133 mg/dl (70-99)
[2025-08-11 21:31] LABS: Glucose - Point of Care 159 mg/dl (70-99)
[2025-08-11 23:03] VITALS: BP 130/74
[2025-08-12] MEDS: ZOSYN 100 IV ×3 (00:16→11:32)
[2025-08-12] MEDS: ROXICODONE 5 MG PO (06:32)
[2025-08-12 07:01] LABS: Blood Urea Nitrogen 13 mg/dl (9-20); Calcium 8.7 mg/dl (8.4-10.2); Carbon Dioxide 26 mmol/L (22-30); Chloride 100 mmol/L (98-107); Estimated Creatinine Clearance 115 ml/min; Glucose 117 mg/dl (70-99); Potassium 4.5 mmol/L (3.5-5.1); Sodium 134 mmol/L (135-145); eGFR > 60.00
[2025-08-12 07:32] LABS: Glucose - Point of Care 112 mg/dl (70-99)
[2025-08-12 07:35] VITALS: BP 139/76
[2025-08-12] MEDS: NOVOLOG FLEXPEN-LOW RESISTANCE SC ×2 (08:05→12:06)
--- NOTE | 2025-08-12 09:19 | W.PN.HOSP.TC ---
Today's Communication/Plan
-
dc home
po abx
op podiatry f/u
Assessment / Plan
Assessment / Plan
General: Well Developed, Well Nourished, Comfortable and Conversant
HEENT: Normocephalic and Atraumatic
Respiratory: Clear to Auscultation and Non Labored Respirations
Cardiac: Regular Rhythm and S1/S2
GI: Soft, Nontender and Nondistended
Musculoskeletal: Right foot second partial amputation-covered in Sriram wrap and dressing noted
Skin: Warm and Dry
Neuro: Awake, Alert, Oriented and AO x 3
Psych: Calm
# Right second toe osteomyelitis/Diabetic foot ulcer
- Status post partial right second toe amputation
- Vanco and Zosyn continue
- polymicrobial wound culture
- Pain control
- Podiatric following- Surgical shoe per leadership development manager-pt has its own with his stuff. WB in shoe.
- Will ask ID for input -recs Augmentin/Cipro x 10 days.
# Diabetes Mellitus, Type II with Diabetic Neuropathy
- Holding metformin
- Holding dapagliflozin
- Continue insulin sliding scale, low resistance
# Hyperlipidemia
-continue atorvastatin
# Tobacco Use Disorder
- denied nicotine patch
DVT prophylaxis: scd/start Lovenox pending clearance from leadership development manager
Full Code
More than 30 minutes spent in discharge including
Final examination of the patient
Summarizing hospital stay
Instructions for continuing care to all relevant caregivers
Preparation of discharge records, prescriptions, and referral forms
Total time spent (in minutes): 55
Anticipated Discharge: Today
Subjective/Interval History
-
Date of Service: August 12, 2025
denies pain to foot
took pain meds earlier today
Objective Data
-
Labs:
Laboratory Results
08/12/25
06:10
Sodium 134 L
Potassium 4.5
Chloride 100
Carbon Dioxide 26
BUN 13
Creatinine 0.7
Glucose 117 H
Calcium 8.7
Vital Signs:
Vital Signs
Temp Pulse Resp BP Pulse Ox
98.4 F 68 16 139/76 98
08/12/25 07:35 08/12/25 07:35 08/12/25 07:35 08/12/25 07:35 08/12/25 07:35
I&O
08/11/25 08/12/25 08/13/25
06:59 06:59 06:59
Intake Total 2580 / 2580 1280 / 1280
Output Total 2400 / 2400 1905 / 1905
Balance 180 / 180 -625 / -625
[2025-08-12] MEDS: LIPITOR 10 MG PO (10:06)
--- NOTE | 2025-08-12 10:39 | W.[place]-PDMP ---
[place]-PD[place]
-
Checked the [place]- Prescription Drug Monitoring Program website, no red flags identified; safe to proceed with prescription.
--- NOTE | 2025-08-12 11:38 | CM ---
Addendum entered by Genevieve Parks 08/12/25 14:58:
Sister provided transport home
Original Note:
Met with patient at bedside
Pharmacy verified: [facility] @ [address] [place] [address]
Live w/ Sister; multilevel home; 1st floor set up
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
DME: [employer]
No SNF history; home health w/ [facility] a couple of months ago
Driving self home
Plan: Discharge to home; no needs
[2025-08-12 11:48] LABS: Glucose - Point of Care 126 mg/dl (70-99)
--- NOTE | 2025-08-12 13:20 | W.PN.UPDATE ---
Update Note
Progress Note Update
In regards to patient's activity restriction-discussed with patient podiatry Dr. Martinez. Patient is weightbearing with surgical shoe at home only. Per business process manager patient cannot drive for now. It will require 2 or 3 weeks of healing before
driving restriction can be lifted if healing improves as expected. This was discussed with patient. RN as a witness patient mention he will NOT be driving and will take transportation to go home. CM was informed of above. Otherwise, medically
stable for dc.
--- NOTE | 2025-08-12 13:22 | W.DCSUMMARY ---
Discharge Summary
Discharge Data
Date of Admission: 08/09/25
Date of Discharge: 08/12/25
-
Pending Results: No
Hospital Course
64-year-old male past medical history of diabetes, prior amputation on the left foot had surgery on the right lower extremity limb was presented for elective right second toe amputation. Patient had x-ray of the foot as outpatient which showed
acute osteomyelitis. Patient underwent surgery with partial amputation. Per art history instructor patient with surgical cure. IV antibiotics were transitioned to p.o. Augmentin and ciprofloxacin per infectious disease recommendation. Per discussion with
podiatry patient with surgical shoe and ambulation at home. Patient cannot drive which patient was agreeable.
Discharge Plan
-
Patient Disposition: Home (Routine Discharge)
Discharge Diagnosis/Procedures: Acute Right 2nd toe osteomyelitis s/p partial toe amputation
Diet: Diabetic, Carb Controlled
Activity: Other activity
Additional Activity: as recommended by art history instructor
Driving Restrictions: Not until seen by your Dr
Referrals:
Juan Wong DPM [Family Provider, Podiatry] - in three to four days
Prescriptions:
New
acetaminophen 325 mg Tablet
650 mg PO Q4HPRN PRN (Reason: pain) Qty: 20 0RF
oxycodone-acetaminophen [Percocet] 5-325 mg tablet
1 tab PO BIDPRN PRN (Reason: severe pain) Qty: 7 0RF
amoxicillin-pot clavulanate 875-125 mg tablet
1 tab PO BID Qty: 20 0RF
ciprofloxacin HCl [Cipro] 250 mg tablet
750 mg PO BID 10 Days Qty: 60 0RF
Visbiome 112.5 billion cell capsule
1 cap PO DAILY 10 Days Qty: 10 0RF
Continued
therapeutic multivitamin Tablet
1 tab PO HS
zinc sulfate 50 mg zinc (220 mg) Tablet
50 mg PO HS Qty: 0
[id number] [MegaRed [place]-3 Krill Oil] 1,000-230-60 mg Capsule
1 cap PO HS Qty: 0
metformin 500 mg Tablet
1,000 mg PO BID@0800,1700 Qty: 60 2RF
garlic 100 mg Tablet
100 mg PO HS Qty: 0 0RF
loperamide 2 mg Capsule
2 mg PO BIDPRN PRN (Reason: diarrhea)
atorvastatin [Lipitor] 10 mg Tablet
10 mg PO DAILY
aspirin 500 mg Tablet
500 mg PO DAILY
dapagliflozin propanediol [Farxiga] 10 mg Tablet
10 mg PO DAILY
Mounjaro 5 mg/0.5 mL Pen Injector
5 mg SC TH
Discharge Orders:
Discharge Patient (As Directed); Ordered 08/12/25
Ordered By: Vinny Abdullahi
Discharge Date and Time
Print Language: ICELANDIC
[2025-08-12 13:54] VITALS: BP 134/79
--- NOTE | 2025-08-12 14:09 | PTCARENOTE ---
Pt notified about being discharged and refusing to listen to surgeon's recommendation to not drive. Reached out to biometrics analyst surgeon, Dr. Wong, who reiterated that pt should not drive until cleared by himself. Pt educated multiple times by this
RN to not drive and needs alternative transportation home. Pt refusing to be compliant. Hospitalist, Dr. Abdullahi, notified about pt being non-compliant and came to bedside. This RN with Dr. Abdullahi witnessed pt stating he will not drive and his sister
will be source of transportation. Care ongoing.
== END 2025-08-12 14:39 | disposition home or self-care (01) | DRG 617 ==
LOC: 2 SOUTH 17:35
PROVIDERS: Registered Nurse; Surgery Trauma Surgery; ADMITTING PHYSICIAN Hospitalist; CONSULT PHYSICIAN Internal Medicine Infectious Disease; CONSULT PHYSICIAN Podiatrist Foot & Ankle Surgery; EMERGENCY PHYSICIAN Emergency Medicine
PROC: 0Y6R0Z1 Detachment at Right 2nd Toe, High, Open Approach (ICD-10-PCS; 2025-08-09)
DX: E11.69 Type 2 diabetes mellitus with other specified complication (principal); I47.19 Other supraventricular tachycardia; M86.171 Other acute osteomyelitis, right ankle and foot; M87.9 Osteonecrosis, unspecified; I12.9 Hypertensive chronic kidney disease with stage 1 through stage 4 chronic kidney disease, or unspecified chronic kidney disease; N18.9 Chronic kidney disease, unspecified; E78.5 Hyperlipidemia, unspecified; E11.42 Type 2 diabetes mellitus with diabetic polyneuropathy; E11.22 Type 2 diabetes mellitus with diabetic chronic kidney disease; F17.210 Nicotine dependence, cigarettes, uncomplicated; L03.031 Cellulitis of right toe; L97.519 Non-pressure chronic ulcer of other part of right foot with unspecified severity; E11.628 Type 2 diabetes mellitus with other skin complications; E88.810 Metabolic syndrome; Q23.81 Bicuspid aortic valve; Z89.421 Acquired absence of other right toe(s); Z79.84 Long term (current) use of oral hypoglycemic drugs; Z79.82 Long term (current) use of aspirin; Z79.85 Long-term (current) use of injectable non-insulin antidiabetic drugs
CPT/HCPCS: 73630; 80048; 82962; 85025; 85027; 87070; 87077; 87147; 87176; 87186; 87205; 88304; 88311; 93005; 96374; 99284